=== PATIENT | female | born 1940 | race Caucasian/White ===

== ENCOUNTER → 2017-02-17 | Outpatient (CLI) | payer MEDICARE ==
--- NOTE | 2017-02-18 08:23 | MM ---
Reason for exam: additional evaluation requested from prior study. Last mammogram was performed 1 year ago. History: Patient is postmenopausal, has history of breast cancer at age 60, and previous chest radiation therapy. Lumpectomy of the right breast. Chemotherapy. Radiation therapy of the right breast. Took estrogen for 2 years beginning at age 57. Took progesterone for 2 years beginning at age 57. Physical Findings: Nurse Summary: nodule in the right breast at 2 o'clock (nurse dw). MG 3D Diag Mammo W/Cad EDVIN Bilateral CC and MLO view(s) were taken. AT view(s) were taken of the right breast. Prior study comparison: February 14, 2016, bilateral MG 3d diag mammo w/cad EDVIN. February 11, 2015, bilateral MG diagnostic mammo w CAD EDVIN. The breast tissue is heterogeneously dense. This may lower the sensitivity of mammography. Stable benign calcifications. Stable post operative changes in the right breast. ASSESSMENT: Incomplete: need additional imaging evaluation, BI-RAD 0 RECOMMENDATION: Ultrasound of the right breast. Manage patient on a clinical basis.
--- NOTE | 2017-02-18 08:24 | USB ---
Reason for exam: additional evaluation requested from abnormal screening. History: Patient is postmenopausal, has history of breast cancer at age 60, and previous chest radiation therapy. Lumpectomy of the right breast. Chemotherapy. Radiation therapy of the right breast. Took estrogen for 2 years beginning at age 57. Took progesterone for 2 years beginning at age 57. US Breast Limited RT Right breast ultrasound demonstrates no cystic or solid lesion seen. These results were verbally communicated with the patient and result sheet given to the patient on 02/17/17. ASSESSMENT: Negative, BI-RAD 1 RECOMMENDATION: Follow-up diagnostic mammogram of both breasts in 1 year. Manage patient on a clinical basis.
== END | disposition home or self-care (01) ==
LOC: RADMAMWWP 13:55
PROVIDERS: ATTEND Family Medicine
DX: R92.8 Other abnormal and inconclusive findings on diagnostic imaging of breast (principal)
CPT/HCPCS: 76642; G0204; G0279

== ENCOUNTER 2018-02-06 19:03 | Inpatient (IN) | payer MEDICARE ==
[2018-02-06] MEDS ORDERED: SODIUM CHLORIDE 0.9% 1,000 ML IV STA (19:55)
[2018-02-06] MEDS ORDERED: ACETAMINOPHEN TAB 500 MG TAB PO STA (19:55)
[2018-02-06] MEDS ORDERED: SODIUM CHLORIDE 0.9% 500 ML IV STA (19:55)
[2018-02-06] MEDS ORDERED: IPRATROPIUM-ALBUTEROL 3 ML NEB INHALATION STA (19:56)
--- NOTE | 2018-02-06 19:59 | ED ---
General Adult HPI - General Chief complaint: Dizziness Stated complaint: chest pain Time Seen by Provider: 02/06/18 19:24 Source: patient, RN notes reviewed, old records reviewed Mode of arrival: wheelchair Limitations: no limitations - History of Present Illness Initial comments: 77-year-old female presenting for evaluation of flulike symptoms She states that she has felt unwell for the past 2 days. She has had nasal congestion and rhinorrhea. She's had a cough productive of cream-colored sputum. She had some mild dyspnea and chest pain worse with cough. She also reports some nausea and loose stools. No significant vomiting. She's had fever and chills throughout this episode. No central radiating chest pain. No chest pain when not coughing. No vision changes. No headache. She has felt lightheaded. No syncopal episode. No vertigo. - Related Data Home Medications Medication Instructions Recorded Confirmed ALPRAZolam [Xanax] 0.25 mg PO Q6H PRN 07/10/15 08/11/16 Aspirin 81 mg PO BID 07/10/15 08/11/16 Dicyclomine [Bentyl] 10 - 20 mg PO Q6H PRN 07/10/15 08/11/16 Fish Oil/Dha/Epa [Fish Oil 1,200 1 cap PO DAILY 07/10/15 08/11/16 mg Fish Oil] Melatonin 1 mg PO HS 07/10/15 08/11/16 Nitroglycerin Sl Tabs [Nitrostat] 0.4 mg SUBLINGUAL Q5M PRN 07/10/15 08/11/16 Ranitidine HCl 300 mg PO HS 07/10/15 08/11/16 Spironolactone [Aldactone] 25 mg PO BID 07/10/15 08/11/16 Levothyroxine Sodium [Synthroid] 50 mcg PO DAILY 08/05/15 08/11/16 Lisinopril [Zestril] 2.5 mg PO BID 08/05/15 08/11/16 Atenolol [Tenormin] 25 mg PO DAILY 08/11/16 08/11/16 Atorvastatin [Lipitor] 80 mg PO HS 08/11/16 08/11/16 Furosemide [Lasix] 80 mg PO DAILY 08/11/16 08/11/16 Multivitamins, Thera [Multivitamin] 1 tab PO DAILY 08/11/16 08/11/16 Omeprazole 40 mg PO BID 08/11/16 08/11/16 Propafenone [Rythmol] 75 mg PO HS 08/11/16 08/11/16 Warfarin [Coumadin] 5 mg PO SUMOTUWETHFR 08/11/16 08/11/16 traMADol HCL [Ultram] 50 mg PO Q6HR PRN 08/11/16 08/11/16 Allergies Allergy/AdvReac Type Severity Reaction Status Date / Time adhesive Allergy Rash/Hives Verified 02/06/18 19:17 aspirin Allergy Unknown Verified 02/06/18 19:18 Sulfa (Sulfonamide Allergy Rash/Hives Verified 02/06/18 19:17 Antibiotics) Review of Systems ROS Statement: Those systems with pertinent positive or pertinent negative responses have been documented in the HPI. ROS Other: All systems not noted in ROS Statement are negative. Past Medical History Past Medical History: Cancer, Hyperlipidemia, Thyroid Disorder Additional Past Medical History / Comment(s): BREAST CANCER, IBS SEE DR DELEON' S H&P History of Any Multi-Drug Resistant Organisms: None Reported Past Surgical History: Coronary Bypass/CABG, Hernia Repair, Hysterectomy, Orthopedic Surgery, Pacemaker Additional Past Surgical History / Comment(s): RIGHT TOTAL HIP , LEFT TOTAL HIP Past Anesthesia/Blood Transfusion Reactions: No Reported Reaction Past Psychological History: No Psychological Hx Reported Smoking Status: Never smoker Past Alcohol Use History: Rare Past Drug Use History: None Reported - Past Family History Mother Family Medical History: No Reported History General Exam Limitations: no limitations General appearance: alert, in no apparent distress Head exam: Present: atraumatic, normocephalic Eye exam: Present: normal appearance, PERRL ENT exam: Present: mucous membranes dry, other (Bilateral nasal congestion) Neck exam: Present: normal inspection. Absent: tenderness, meningismus Respiratory exam: Present: wheezes (Scattered wheezing, good air entry), chest wall tenderness. Absent: respiratory distress Cardiovascular Exam: Present: regular rate, normal rhythm GI/Abdominal exam: Present: soft. Absent: distended, tenderness, guarding Extremities exam: Present: normal inspection, normal capillary refill. Absent: pedal edema Neurological exam: Present: alert, oriented X3, CN II-XII intact. Absent: motor sensory deficit Psychiatric exam: Present: normal affect, normal mood Skin exam: Present: warm, dry, intact. Absent: cyanosis, diaphoretic Course Vital Signs 02/06/18 02/06/18 02/06/18 19:14 20:18 20:26 Temperature 101.7 F H Pulse Rate 94 76 78 Respiratory 18 16 18 Rate Blood Pressure 103/56 O2 Sat by Pulse 97 Oximetry 02/06/18 20:58 Temperature 101.6 F H Pulse Rate 87 Respiratory 18 Rate Blood Pressure 111/57 O2 Sat by Pulse 97 Oximetry - Reevaluation(s) Reevaluation #1: 02/06/18 21:46 On reevaluation, patient is feeling better. Medical Decision Making - Medical Decision Making 77-year-old female presenting with rhinorrhea, cough and some lightheadedness and fever and chills. Patient has had no abdominal pain or dysuria. Mild chest pain with cough. No central radiating chest pain. White blood cell count mildly elevated 13.6, hemoglobin stable 12.5, influenza is negative. Chest x-ray negative for focal pneumonia. Patient is given albuterol, and Tylenol and some IV hydration. On reevaluation she is feeling better. She will be given azithromycin and will follow-up with her primary care physician. Diagnosis: Upper respiratory tract infection. - Lab Data Result diagrams: 02/06/18 19:42 02/06/18 19:42 Lab Results 02/06/18 02/06/18 02/06/18 Range/Units 19:42 19:42 19:42 WBC 13.6 H (3.8-10.6) k/uL RBC 4.31 (3.80-5.40) m/uL Hgb 12.5 (11.4-16.0) gm/dL Hct 37.0 (34.0-46.0) % MCV 85.8 (80.0-100.0) fL MCH 29.1 (25.0-35.0) pg MCHC 33.9 (31.0-37.0) g/dL RDW 15.0 (11.5-15.5) % Plt Count 250 (150-450) k/uL Neutrophils % 81 % Lymphocytes % 13 % Monocytes % 5 % Eosinophils % 1 % Basophils % 0 % Neutrophils # 10.9 H (1.3-7.7) k/uL Lymphocytes # 1.7 (1.0-4.8) k/uL Monocytes # 0.6 (0-1.0) k/uL Eosinophils # 0.1 (0-0.7) k/uL Basophils # 0.0 (0-0.2) k/uL Sodium 136 L (137-145) mmol/L Potassium 5.2 H (3.5-5.1) mmol/L Chloride 98 (98-107) mmol/L Carbon Dioxide 24 (22-30) mmol/L Anion Gap 14 mmol/L BUN 23 H (7-17) mg/dL Creatinine 0.90 (0.52-1.04) mg/dL Est GFR (CKD-EPI)AfAm 73 (>60 ml/min/1.73 sqM) Est GFR (CKD-EPI)NonAf 63 (>60 ml/min/1.73 sqM) Glucose 123 H (74-99) mg/dL Plasma Lactic Acid Jorge 1.0 (0.7-2.0) mmol/L Calcium 9.5 (8.4-10.2) mg/dL Total Bilirubin 0.4 (0.2-1.3) mg/dL AST 24 (14-36) U/L ALT 36 (9-52) U/L Alkaline Phosphatase 79 (38-126) U/L Total Protein 6.5 (6.3-8.2) g/dL Albumin 3.9 (3.5-5.0) g/dL Urine Color Urine Appearance (Clear) Urine pH (5.0-8.0) Ur Specific [place] (1.001-1.035) Urine Protein (Negative) Urine Glucose (UA) (Negative) Urine Ketones (Negative) Urine Blood (Negative) Urine Nitrite (Negative) Urine Bilirubin (Negative) Urine Urobilinogen (<2.0) mg/dL Ur Leukocyte Esterase (Negative) Urine RBC (0-5) /hpf Urine WBC (0-5) /hpf Ur Squamous Epith Cells (0-4) /hpf Hyaline Casts (0-2) /lpf Influenza Type A RNA (Not Detectd) Influenza Type B (PCR) (Not Detectd) 02/06/18 02/06/18 Range/Units 20:14 20:15 WBC (3.8-10.6) k/uL RBC (3.80-5.40) m/uL Hgb (11.4-16.0) gm/dL Hct (34.0-46.0) % MCV (80.0-100.0) fL MCH (25.0-35.0) pg MCHC (31.0-37.0) g/dL RDW (11.5-15.5) % Plt Count (150-450) k/uL Neutrophils % % Lymphocytes % % Monocytes % % Eosinophils % % Basophils % % Neutrophils # (1.3-7.7) k/uL Lymphocytes # (1.0-4.8) k/uL Monocytes # (0-1.0) k/uL Eosinophils # (0-0.7) k/uL Basophils # (0-0.2) k/uL Sodium (137-145) mmol/L Potassium (3.5-5.1) mmol/L Chloride (98-107) mmol/L Carbon Dioxide (22-30) mmol/L Anion Gap mmol/L BUN (7-17) mg/dL Creatinine (0.52-1.04) mg/dL Est GFR (CKD-EPI)AfAm (>60 ml/min/1.73 sqM) Est GFR (CKD-EPI)NonAf (>60 ml/min/1.73 sqM) Glucose (74-99) mg/dL Plasma Lactic Acid Jorge (0.7-2.0) mmol/L Calcium (8.4-10.2) mg/dL Total Bilirubin (0.2-1.3) mg/dL AST (14-36) U/L ALT (9-52) U/L Alkaline Phosphatase (38-126) U/L Total Protein (6.3-8.2) g/dL Albumin (3.5-5.0) g/dL Urine Color Yellow Urine Appearance Cloudy H (Clear) Urine pH 6.5 (5.0-8.0) Ur Specific [place] 1.015 (1.001-1.035) Urine Protein Trace H (Negative) Urine Glucose (UA) Negative (Negative) Urine Ketones Negative (Negative) Urine Blood Small H (Negative) Urine Nitrite Negative (Negative) Urine Bilirubin Negative (Negative) Urine Urobilinogen <2.0 (<2.0) mg/dL Ur Leukocyte Esterase Large H (Negative) Urine RBC 5 (0-5) /hpf Urine WBC 68 H (0-5) /hpf Ur Squamous Epith Cells 7 H (0-4) /hpf Hyaline Casts 1 (0-2) /lpf Influenza Type A RNA Not Detected (Not Detectd) Influenza Type B (PCR) Not Detected (Not Detectd) Disposition Clinical Impression: Upper respiratory tract infection, Bronchitis Disposition: HOME SELF-CARE Condition: Good Instructions: Upper Respiratory Infection (ED), Acute Bronchitis (ED) Referrals: Yaritza Sutton MD [Primary Care Provider] - 1-2 days Time of Disposition: 21:53
[2018-02-06 20:14] LABS: Basophils % (A) 0 %; Eosinophils # (A) 0.1 k/uL (0-0.7); Eosinophils % (A) 1 %; HGB 12.5 gm/dL (11.4-16.0); Lymphocytes # (A) 1.7 k/uL (1.0-4.8); Lymphocytes % (A) 13 %; MCH 29.1 pg (25.0-35.0); MCHC 33.9 g/dL (31.0-37.0); MCV 85.8 fL (80.0-100.0); Mean Platelet Volume 7.7; Monocytes # (A) 0.6 k/uL (0-1.0); Monocytes % (A) 5 %; Neutrophils # (A) 10.9 k/uL (1.3-7.7); Neutrophils % (A) 81 %; Platelet Count 250 k/uL (150-450); RBC 4.31 m/uL (3.80-5.40); WBC 13.6 k/uL (3.8-10.6)
[2018-02-06 20:19] LABS: Albumin 3.9 g/dL (3.5-5.0); Calcium 9.5 mg/dL (8.4-10.2); Potassium 5.2 mmol/L (3.5-5.1); Total Bilirubin 0.4 mg/dL (0.2-1.3); Total Protein 6.5 g/dL (6.3-8.2)
[2018-02-06 20:25] LABS: Appearance,Urine Cloudy (Clear); Bilirubin,Urine Negative (Negative); Blood,Urine Small (Negative); Color,Urine Yellow; Glucose,Urine (UA) Negative (Negative); Hyaline Casts,Urine 1 /lpf (0-2); Ketones,Urine Negative (Negative); Leukocyte Esterase,Urine Large (Negative); Nitrite,Urine Negative (Negative); PH, Urine 6.5 (5.0-8.0); Protein,Urine Trace (Negative); RBC,Urine 5 /hpf (0-5); Specific Gravity,Urine 1.015 (1.001-1.035); Squamous Epithelial Cell,Urine 7 /hpf (0-4); Urobilinogen,Urine <2.0 mg/dL (<2.0); WBC,Urine 68 /hpf (0-5)
--- NOTE | 2018-02-06 21:20 | XR ---
EXAMINATION TYPE: XR chest 2V DATE OF EXAM: 02/06/2018 COMPARISON: 08/11/2016 INDICATION: Cough, fever TECHNIQUE: Frontal and lateral views of the chest are obtained. FINDINGS: The heart size is normal. The pulmonary vasculature is normal. The lungs are clear. Linear opacity in the periphery of the left lung likely some scarring. [place] r overlies left chest. Sternotomy wires are present. Right axillary surgical clips are present. IMPRESSION: 1. No acute pulmonary process.
[2018-02-06] MEDS ORDERED: AZITHROMYCIN 500 MG in SODIUM CHLORIDE 0.9% 250 ML IVPB STA (22:20)
[2018-02-06] MEDS ORDERED: SODIUM CHLORIDE 0.9% 500 ML IV ONE (22:20)
[2018-02-06 22:33] LABS: INR 2.3 (<1.2); Prothrombin Time 20.8 sec (9.0-12.0)
[2018-02-06] MEDS ORDERED: ALBUTEROL NEBULIZED 2.5 MG/3 ML INHALATION PRN (22:39)
[2018-02-06] MEDS ORDERED: NALOXONE 0.4 MG/ML 1 ML VIAL IV PRN (22:56)
[2018-02-06] MEDS ORDERED: DEXAMETHASONE SOD PHOSPHATE 10 MG/ML 1 ML VIAL IV STA (22:58)
[2018-02-07] MEDS: PROPAFENONE 150 MG TAB PO SCH ×2 (00:50→22:01)
[2018-02-07] MEDS: WARFARIN 5 MG TAB PO SCH ×2 (00:50→17:21)
[2018-02-07] MEDS: PANTOPRAZOLE 40 MG/10 ML VIAL IVP SCH ×2 (00:51→08:51)
[2018-02-07] MEDS: ACETAMINOPHEN TAB 325 MG TAB PO PRN (00:51)
[2018-02-07] MEDS: LEVOTHYROXINE 50 MCG TAB PO SCH (06:30)
[2018-02-07] MEDS: ASPIRIN 81 MG PO SCH ×2 (08:51→22:00)
[2018-02-07] MEDS: ATENOLOL 25 MG TAB PO SCH (08:52)
[2018-02-07] MEDS ORDERED: DICYCLOMINE 10 MG CAP PO PRN (09:21)
[2018-02-07 10:08] LABS: ALT 24 U/L (9-52); AST 19 U/L (14-36); Albumin 3.1 g/dL (3.5-5.0); Alkaline Phosphatase 63 U/L (38-126); Anion Gap 11 mmol/L; Blood Urea Nitrogen 17 mg/dL (7-17); Calcium 8.6 mg/dL (8.4-10.2); Carbon Dioxide 19 mmol/L (22-30); Chloride 106 mmol/L (98-107); Glucose 247 mg/dL (74-99); Potassium 4.7 mmol/L (3.5-5.1); Sodium 136 mmol/L (137-145); Total Bilirubin 0.3 mg/dL (0.2-1.3); Total Protein 5.4 g/dL (6.3-8.2)
[2018-02-07 10:31] LABS: Basophils % (A) 0 %; Eosinophils % (A) 0 %; HCT 33.5 % (34.0-46.0); HGB 11.1 gm/dL (11.4-16.0); Lymphocytes # (A) 0.9 k/uL (1.0-4.8); Lymphocytes % (A) 9 %; MCH 29.6 pg (25.0-35.0); MCHC 33.2 g/dL (31.0-37.0); MCV 89.1 fL (80.0-100.0); Monocytes # (A) 0.2 k/uL (0-1.0); Monocytes % (A) 2 %; Neutrophils % (A) 90 %; Platelet Count 189 k/uL (150-450); RBC 3.76 m/uL (3.80-5.40); WBC 10.1 k/uL (3.8-10.6)
[2018-02-07] MEDS: traMADol 50 MG TAB PO PRN ×2 (11:19→20:38)
[2018-02-07] MEDS ORDERED: IPRATROPIUM-ALBUTEROL 3 ML NEB INHALATION PRN (11:39)
[2018-02-07] MEDS: IPRATROPIUM-ALBUTEROL 3 ML NEB INHALATION SCH ×3 (11:58→20:39)
--- NOTE | 2018-02-07 11:58 | P.HPIM ---
History of Present Illness H&P Date: 02/07/18 Chief Complaint: Dizziness This is a 77-year-old female, patient of Dr. Sutton. She has a known past medical history of hypothyroidism, hyperlipidemia, breast cancer, coronary artery disease with previous CABG, atrial fibrillation and possible congestive heart failure. Patient reports 2 days ago she had been feeling unwell with nasal congestion and runny nose headache productive cough with a cream-colored sputum. Also admits to having some shortness of breath and chest pain that was worse with the cough. She became concerned when yesterday she started having severe dizziness and thought that she was To pass out. Therefore she came into the emergency room for further evaluation. She also reports some nausea but no diarrhea. She does not to having fever and chills. She is complaining of left ear pain headache and sinus congestion. White count on admission was 13.6 she did have a temp of 101.7. Chest x-ray was negative for any acute changes influenza screening was negative. Urinalysis did show large leukocyte esterase but did have squamous epithelial cells. Likely contamination. Patient doesn't have any urinary symptoms. Urine culture has been ordered. Cultures pending. Patient did receive a dose of IV azithromycin and IV Decadron in the emergency room. Today she is not had any dizziness. However she is still having cough congestion and earache. Orthostatics were checked and were negative. White count has normalized. Patient was admitted to the hospital for acute bronchitis and mild dehydration. She was given a fluids in the emergency room with improvement. Review of Systems Please refer to HPI otherwise unremarkable Past Medical History Past Medical History: Atrial Fibrillation, Cancer, Heart Failure, Hyperlipidemia , Thyroid Disorder Additional Past Medical History / Comment(s): BREAST CANCER with lymph removal on right side, IBS SEE DR DELEON'S H&P History of Any Multi-Drug Resistant Organisms: None Reported Past Surgical History: Coronary Bypass/CABG, Hernia Repair, Hysterectomy, Orthopedic Surgery, Pacemaker Additional Past Surgical History / Comment(s): RIGHT TOTAL HIP , LEFT TOTAL HIP Past Anesthesia/Blood Transfusion Reactions: No Reported Reaction Type of Cardiac Device: Unknown Device Placement Date:: 2015 Past Psychological History: No Psychological Hx Reported Smoking Status: Never smoker Past Alcohol Use History: Rare Past Drug Use History: None Reported - Past Family History Mother Family Medical History: Congestive Heart Failure (CHF) Medications and Allergies Home Medications Medication Instructions Recorded Confirmed Type ALPRAZolam [Xanax] 0.25 mg PO Q6H PRN 07/10/15 02/07/18 History Dicyclomine [Bentyl] 10 mg PO TID PRN 07/10/15 02/07/18 History Fish Oil/Dha/Epa [Fish Oil 1,200 1 cap PO DAILY 07/10/15 02/07/18 History mg Fish Oil] Nitroglycerin Sl Tabs [Nitrostat] 0.4 mg SUBLINGUAL Q5M PRN 07/10/15 02/07/18 History Ranitidine HCl 300 mg PO HS 07/10/15 02/07/18 History Spironolactone [Aldactone] 50 mg PO DAILY 07/10/15 02/07/18 History Levothyroxine Sodium [Synthroid] 50 mcg PO DAILY 08/05/15 02/07/18 History Lisinopril [Zestril] 2.5 mg PO BID 08/05/15 02/07/18 History Atenolol [Tenormin] 25 mg PO DAILY 08/11/16 02/07/18 History Atorvastatin [Lipitor] 80 mg PO HS 08/11/16 02/07/18 History Furosemide [Lasix] 80 mg PO DAILY 08/11/16 02/07/18 History Omeprazole 40 mg PO BID 08/11/16 02/07/18 History Propafenone [Rythmol] 75 mg PO HS 08/11/16 02/07/18 History traMADol HCL [Ultram] 50 mg PO Q6HR PRN 08/11/16 02/07/18 History Azithromycin [Zithromax Z-pack] 0 mg PO DIRECTED #6 tab 02/06/18 Rx Cholecalciferol [Vitamin D3] 5,000 unit PO DAILY 02/07/18 02/07/18 History Potassium Chloride ER [K-Dur 20] 20 meq PO DAILY 02/07/18 02/07/18 History Warfarin Sodium 5 mg PO MOWEFR 02/07/18 02/07/18 History Warfarin [Coumadin] 6 mg PO SUTUTHSA 02/07/18 02/07/18 History Allergies Allergy/AdvReac Type Severity Reaction Status Date / Time adhesive Allergy Rash/Hives Verified 02/07/18 08:30 aspirin Allergy Unknown Verified 02/07/18 08:30 Sulfa (Sulfonamide Allergy Rash/Hives Verified 02/07/18 08:30 Antibiotics) Physical Exam Vitals: Vital Signs Temp Pulse Pulse Resp BP BP Pulse Ox 02/07/18 11:08 68 16 108/55 02/07/18 11:07 66 16 114/59 02/07/18 11:06 97.6 F 61 16 110/55 02/07/18 07:00 97.8 F 60 16 108/53 98 02/06/18 23:50 98.5 F 79 16 101/65 95 02/06/18 22:52 100.7 F H 75 18 97/56 95 02/06/18 20:58 101.6 F H 87 18 111/57 97 02/06/18 20:26 78 18 02/06/18 20:18 76 16 02/06/18 19:14 101.7 F H 94 18 103/56 97 Intake and Output 02/06/18 02/07/18 02/07/18 22:59 06:59 14:59 Intake Total 240 Balance 240 Intake: Oral 240 Other: # Voids 1 Weight 78.925 kg HEENT left ear no pain with palpation. Cerumen blocking the tympanic membrane. Ear canal no redness. Right ear no evidence of infection. Tenderness with palpation of the frontal sinuses Head normocephalic Neck supple Lungs expiratory wheezing noted bilaterally Heart regular rate and rhythm S1-S2, no rub or gallop Abdomen is soft nontender nondistended positive bowel sounds no hepatosplenomegaly Extremities no edema Neuro alert and orientated to 3 Results CBC & Chem 7: 02/07/18 09:31 02/07/18 09:31 Labs: Abnormal Lab Results - Last 24 Hours (Table) 02/06/18 02/06/18 02/06/18 Range/Units 19:42 19:42 19:42 WBC 13.6 H (3.8-10.6) k/uL RBC (3.80-5.40) m/uL Hgb (11.4-16.0) gm/dL Hct (34.0-46.0) % Neutrophils # 10.9 H (1.3-7.7) k/uL Lymphocytes # (1.0-4.8) k/uL PT 20.8 H (9.0-12.0) sec INR 2.3 H (<1.2) APTT 32.0 H (22.0-30.0) sec Sodium 136 L (137-145) mmol/L Potassium 5.2 H (3.5-5.1) mmol/L Carbon Dioxide (22-30) mmol/L BUN 23 H (7-17) mg/dL Glucose 123 H (74-99) mg/dL Total Protein (6.3-8.2) g/dL Albumin (3.5-5.0) g/dL Urine Appearance (Clear) Urine Protein (Negative) Urine Blood (Negative) Ur Leukocyte Esterase (Negative) Urine WBC (0-5) /hpf Ur Squamous Epith Cells (0-4) /hpf 02/06/18 02/07/18 02/07/18 Range/Units 20:14 09:31 09:31 WBC (3.8-10.6) k/uL RBC 3.76 L (3.80-5.40) m/uL Hgb 11.1 L (11.4-16.0) gm/dL Hct 33.5 L (34.0-46.0) % Neutrophils # 9.0 H (1.3-7.7) k/uL Lymphocytes # 0.9 L (1.0-4.8) k/uL PT (9.0-12.0) sec INR (<1.2) APTT (22.0-30.0) sec Sodium 136 L (137-145) mmol/L Potassium (3.5-5.1) mmol/L Carbon Dioxide 19 L (22-30) mmol/L BUN (7-17) mg/dL Glucose 247 H (74-99) mg/dL Total Protein 5.4 L (6.3-8.2) g/dL Albumin 3.1 L (3.5-5.0) g/dL Urine Appearance Cloudy H (Clear) Urine Protein Trace H (Negative) Urine Blood Small H (Negative) Ur Leukocyte Esterase Large H (Negative) Urine WBC 68 H (0-5) /hpf Ur Squamous Epith Cells 7 H (0-4) /hpf Thrombosis Risk Factor Assmnt - Choose All That Apply Any of the Below Risk Factors Present?: Yes Each Factor Represents 1 point: Obesity (BMI >25), Swollen legs (current) Other Risk Factors: Yes Each Risk Factor Represents 2 Points: Age 61-74 years Thrombosis Risk Factor Assessment Total Risk Factor Score: 4 Thrombosis Risk Factor Assessment Level: Moderate Risk Assessment and Plan Assessment: 1. Acute tracheobronchitis and acute sinus infection with evidence of sepsis present on admission. Patient had a temp of 101.7 white count 13.6. She was given IV azithromycin, IV Decadron and IV fluids in the ER. Chest x-ray showed no evidence of pneumonia. We'll start patient on IV Rocephin 1 g daily. Azithromycin interacts with her Rythmol may cause a prolonged QT interval. Blood culture and urine culture pending. Will add nebulizer treatments 2. Dehydration present on admission and improved with IV fluids. Restart her diuretics tomorrow 3. Hypothyroidism: Continue levothyroxine 4. Paroxysmal atrial fibrillation continue Coumadin and monitor daily PT/INR for anticoagulation. Continue Rythmol and atenolol 5. Dizziness likely related to her sinus infection and bronchitis. Now resolved 6. History of coronary artery disease with previous CABG 7. Hyperlipidemia GI prophylaxis Protonix and DVT prophylaxis Coumadin Time with Patient: Greater than 30 (Greater than 50% of the total time spent in counseling and coordination of care.I performed an examination of the patient and discussed their management with the physician [employer]. I have reviewed the Physician [employer]'s notes and agree with the documented findings and plan of care)
[2018-02-07] MEDS: cefTRIAXone IN SWFI 1,000 MG/10 ML SYRINGE IVP SCH (13:06)
[2018-02-07] MEDS: PANTOPRAZOLE 40 MG TABLET PO SCH (17:21)
[2018-02-07] MEDS: ALPRAZolam 0.25 MG TAB PO PRN (17:29)
--- NOTE | 2018-02-07 17:58 | P.CNPUL ---
History of Present Illness Consult date: 02/07/18 Reason for consult: dyspnea, cough, chest pain Chief complaint: Shortness of breath cough chest tightness started 2 days ago History of present illness: Ms. Eduardo is a 77-year-old female history of coronary artery disease history of CABG in the past she has been fairly stable state of health until about Wednesday she started having increasing shortness of breath and dry cough after a cold-like infection the symptoms of progressive up to a point yesterday and today decided to come into the hospital she was seen evaluated examined in the emergency room has been admitted into the hospital she does complain of cough which is dry and nonproductive complain of chest tightness intermittent episodes of rapid heart beat has been noted with flutter-type sensation in fact this 5 minutes before she has a transient episode of similar nature resolved spontaneously and last to do a d-dimer as well as the EKG I reviewed the previous EKG as well as a chest x-ray She also reports some nausea but no diarrhea. She does not to having fever and chills. She is complaining of left ear pain headache and sinus congestion. White count on admission was 13.6 she did have a temp of 101.7. Chest x-ray was negative for any acute changes influenza screening was negative. Urinalysis did show large leukocyte esterase but did have squamous epithelial cells. Likely contamination. Patient doesn't have any urinary symptoms. She has a known past medical history of hypothyroidism, hyperlipidemia, breast cancer, coronary artery disease with previous CABG, atrial fibrillation and possible congestive heart failure. Review of Systems All systems: negative (As noted above) Past Medical History Past Medical History: Atrial Fibrillation, Cancer, Heart Failure, Hyperlipidemia , Thyroid Disorder Additional Past Medical History / Comment(s): BREAST CANCER with lymph removal on right side, IBS SEE DR DELEON'S H&P History of Any Multi-Drug Resistant Organisms: None Reported Past Surgical History: Coronary Bypass/CABG, Hernia Repair, Hysterectomy, Orthopedic Surgery, Pacemaker Additional Past Surgical History / Comment(s): RIGHT TOTAL HIP , LEFT TOTAL HIP Past Anesthesia/Blood Transfusion Reactions: No Reported Reaction Type of Cardiac Device: Unknown Device Placement Date:: 2015 Past Psychological History: No Psychological Hx Reported Smoking Status: Never smoker Past Alcohol Use History: Rare Past Drug Use History: None Reported - Past Family History Mother Family Medical History: Congestive Heart Failure (CHF) Medications and Allergies Home Medications Medication Instructions Recorded Confirmed Type ALPRAZolam [Xanax] 0.25 mg PO Q6H PRN 07/10/15 02/07/18 History Dicyclomine [Bentyl] 10 mg PO TID PRN 07/10/15 02/07/18 History Fish Oil/Dha/Epa [Fish Oil 1,200 1 cap PO DAILY 07/10/15 02/07/18 History mg Fish Oil] Nitroglycerin Sl Tabs [Nitrostat] 0.4 mg SUBLINGUAL Q5M PRN 07/10/15 02/07/18 History Ranitidine HCl 300 mg PO HS 07/10/15 02/07/18 History Spironolactone [Aldactone] 50 mg PO DAILY 07/10/15 02/07/18 History Levothyroxine Sodium [Synthroid] 50 mcg PO DAILY 08/05/15 02/07/18 History Lisinopril [Zestril] 2.5 mg PO BID 08/05/15 02/07/18 History Atenolol [Tenormin] 25 mg PO DAILY 08/11/16 02/07/18 History Atorvastatin [Lipitor] 80 mg PO HS 08/11/16 02/07/18 History Furosemide [Lasix] 80 mg PO DAILY 08/11/16 02/07/18 History Omeprazole 40 mg PO BID 08/11/16 02/07/18 History Propafenone [Rythmol] 75 mg PO HS 08/11/16 02/07/18 History traMADol HCL [Ultram] 50 mg PO Q6HR PRN 08/11/16 02/07/18 History Azithromycin [Zithromax Z-pack] 0 mg PO DIRECTED #6 tab 02/06/18 Rx Cholecalciferol [Vitamin D3] 5,000 unit PO DAILY 02/07/18 02/07/18 History Potassium Chloride ER [K-Dur 20] 20 meq PO DAILY 02/07/18 02/07/18 History Warfarin Sodium 5 mg PO MOWEFR 02/07/18 02/07/18 History Warfarin [Coumadin] 6 mg PO SUTUTHSA 02/07/18 02/07/18 History Allergies Allergy/AdvReac Type Severity Reaction Status Date / Time adhesive Allergy Rash/Hives Verified 02/07/18 08:30 aspirin Allergy Unknown Verified 02/07/18 08:30 Sulfa (Sulfonamide Allergy Rash/Hives Verified 02/07/18 08:30 Antibiotics) Physical Exam Vitals: Vital Signs Temp Pulse Pulse Resp BP BP Pulse Ox 02/07/18 16:47 80 02/07/18 16:37 76 02/07/18 14:31 97.0 F L 66 16 125/69 98 02/07/18 12:19 76 02/07/18 12:00 72 02/07/18 11:08 68 16 108/55 02/07/18 11:07 66 16 114/59 02/07/18 11:06 97.6 F 61 16 110/55 02/07/18 07:00 97.8 F 60 16 108/53 98 02/06/18 23:50 98.5 F 79 16 101/65 95 02/06/18 22:52 100.7 F H 75 18 97/56 95 02/06/18 20:58 101.6 F H 87 18 111/57 97 02/06/18 20:26 78 18 02/06/18 20:18 76 16 02/06/18 19:14 101.7 F H 94 18 103/56 97 Intake and Output 02/07/18 02/07/18 02/07/18 06:59 14:59 22:59 Intake Total 440 Balance 440 Intake: Oral 440 Other: # Voids 1 4 # Bowel Movements 0 General appearance: alert, in no apparent distress Head exam: Present: atraumatic, normocephalic Eye exam: Present: normal appearance, PERRL ENT exam: Present: mucous membranes dry, other (Bilateral nasal congestion) Neck exam: Present: normal inspection. Absent: tenderness, meningismus supple no significant jugular venous distention no carotid bruit no lymphadenopathy noted Respiratory exam: Present: Bilateral expiratory wheezes (Scattered wheezing, good air entry), Cardiovascular Exam: Present: regular rate, normal rhythm GI/Abdominal exam: Present: soft. Absent: distended, tenderness, guarding Extremities exam: Present: normal inspection, normal capillary refill. Absent: pedal edema Neurological exam: Present: alert, oriented X3, CN II-XII intact. Absent: motor sensory deficit Psychiatric exam: Present: normal affect, normal mood Skin exam: Present: warm, dry, intact. Absent: cyanosis, diaphoretic Results - Laboratory Findings CBC and BMP: 02/07/18 09:31 02/07/18 09:31 PT/INR, D-dimer PT 20.8 sec (9.0-12.0) H 02/06/18 19:42 INR 2.3 (<1.2) H 02/06/18 19:42 Abnormal lab findings: Abnormal Labs 02/06/18 02/06/18 02/06/18 19:42 19:42 19:42 WBC 13.6 H RBC Hgb Hct Neutrophils # 10.9 H Lymphocytes # PT 20.8 H INR 2.3 H APTT 32.0 H Sodium 136 L Potassium 5.2 H Carbon Dioxide BUN 23 H Glucose 123 H Total Protein Albumin Urine Appearance Urine Protein Urine Blood Ur Leukocyte Esterase Urine WBC Ur Squamous Epith Cells 02/06/18 02/07/18 02/07/18 20:14 09:31 09:31 WBC RBC 3.76 L Hgb 11.1 L Hct 33.5 L Neutrophils # 9.0 H Lymphocytes # 0.9 L PT INR APTT Sodium 136 L Potassium Carbon Dioxide 19 L BUN Glucose 247 H Total Protein 5.4 L Albumin 3.1 L Urine Appearance Cloudy H Urine Protein Trace H Urine Blood Small H Ur Leukocyte Esterase Large H Urine WBC 68 H Ur Squamous Epith Cells 7 H - Diagnostic Findings Chest x-ray: report reviewed, image reviewed (Labs significant for a urine with large leukocyte is trace suggestive of UTI borderline hyperglycemia mild hyponatremia mild hypokalemia, well therapeutic PT/INR) Assessment and Plan Assessment: Purulent tracheobronchitis Acute COPD exacerbation/acute asthma Chest tightness likely related to above but occult processes like pulmonary embolism cannot be excluded Feeling of flutter fibrillation symptomatic transient resolved Urinary tract infection Sirs Dehydration and intravascular volume depletion Paroxysmal atrial fibrillation Coronary artery disease history of CABG Dyslipidemia hypertension hypertensive cardiovascular disease Plan: Gentle rehydration Broad-spectrum antibiotics with IV Rocephin Breathing treatments IV steroids Continue Coumadin as planned We'll check an EKG and a d-dimer If d-dimer is elevated consider doing a spiral CT scan of the chest to rule out PE Deep breathing exercises incentive spirometry Further recommendations pending plan of care as per clinical response of the patient Time with Patient: Greater than 30
[2018-02-07] MEDS ORDERED: WARFARIN 5 MG TAB PO SCH (18:00)
[2018-02-07] MEDS ORDERED: PROPAFENONE 150 MG TAB PO SCH (21:00)
[2018-02-07] MEDS: methylPREDNISolone SOD SUCCI 40 MG/ML 1 ML VIAL IV SCH (21:59)
[2018-02-07] MEDS: ATORVASTATIN 80 MG TAB PO SCH (22:00)
[2018-02-07] MEDS: FAMOTIDINE 20 MG TAB PO SCH (22:00)
[2018-02-08] MEDS: methylPREDNISolone SOD SUCCI 40 MG/ML 1 ML VIAL IV SCH ×2 (04:45→11:23)
[2018-02-08] MEDS: LEVOTHYROXINE 50 MCG TAB PO SCH (06:23)
[2018-02-08] MEDS: IPRATROPIUM-ALBUTEROL 3 ML NEB INHALATION SCH ×5 (07:14→19:40)
[2018-02-08] MEDS ORDERED: PANTOPRAZOLE 40 MG TABLET PO SCH (07:30)
[2018-02-08] MEDS: PANTOPRAZOLE 40 MG TABLET PO SCH ×2 (08:27→17:15)
[2018-02-08] MEDS: ASPIRIN 81 MG PO SCH ×2 (08:28→20:38)
[2018-02-08] MEDS: CHOLECALCIFEROL 1,000 UNIT TAB PO SCH (08:28)
[2018-02-08] MEDS: ATENOLOL 25 MG TAB PO SCH (08:28)
[2018-02-08] MEDS: SPIRONOLACTONE 25 MG TAB PO SCH (08:29)
[2018-02-08] MEDS: FUROSEMIDE 40 MG TAB PO SCH (08:29)
[2018-02-08 08:52] LABS: Basophils % (A) 0 %; Eosinophils % (A) 0 %; HCT 34.2 % (34.0-46.0); HGB 11.1 gm/dL (11.4-16.0); Lymphocytes # (A) 1.1 k/uL (1.0-4.8); Lymphocytes % (A) 9 %; MCH 28.8 pg (25.0-35.0); MCHC 32.6 g/dL (31.0-37.0); MCV 88.3 fL (80.0-100.0); Mean Platelet Volume 8.2; Monocytes # (A) 0.4 k/uL (0-1.0); Monocytes % (A) 3 %; Neutrophils # (A) 11.1 k/uL (1.3-7.7); Neutrophils % (A) 88 %; Platelet Count 214 k/uL (150-450); RBC 3.87 m/uL (3.80-5.40); RDW 15.1 % (11.5-15.5); WBC 12.6 k/uL (3.8-10.6)
[2018-02-08 08:53] LABS: Prothrombin Time 26.6 sec (9.0-12.0)
[2018-02-08 09:23] LABS: ALT 28 U/L (9-52); AST 19 U/L (14-36); Albumin 3.3 g/dL (3.5-5.0); Alkaline Phosphatase 76 U/L (38-126); Anion Gap 12 mmol/L; Blood Urea Nitrogen 15 mg/dL (7-17); Calcium 9.2 mg/dL (8.4-10.2); Carbon Dioxide 21 mmol/L (22-30); Chloride 99 mmol/L (98-107); Glucose 193 mg/dL (74-99); Potassium 4.9 mmol/L (3.5-5.1); Sodium 132 mmol/L (137-145); Total Bilirubin 0.2 mg/dL (0.2-1.3); Total Protein 5.7 g/dL (6.3-8.2)
[2018-02-08] MEDS: cefTRIAXone IN SWFI 1,000 MG/10 ML SYRINGE IVP SCH (11:23)
--- NOTE | 2018-02-08 12:45 | P.PN ---
Subjective Progress Note Date: 02/08/18 Patient is complaining of feeling jittery and of heart palpitation every time she used albuterol inhaler breathing treatment. She is concerned with her underlying heart condition. She is still having some shortness of breath. She did not get up and walk around as of yet. Objective - Vital Signs Vital signs: Vital Signs Temp 97.8 F 02/08/18 07:00 Pulse 60 02/08/18 07:00 Resp 16 02/08/18 07:00 BP 105/53 02/08/18 07:00 Pulse Ox 99 02/08/18 07:00 Intake & Output 02/07/18 02/08/18 02/08/18 18:59 06:59 18:59 Intake Total 440 Balance 440 Weight 81.9 kg Intake: Oral 440 Other: Voiding Method Toilet # Voids 4 1 # Bowel Movements 0 - Exam General: The patient is awake and alert, in no distress Eye: there is normal conjunctiva bilaterally. Neck: The neck is supple, there is no JVD. Cardiovascular: Normal S1-S2, no S3-S4, no murmurs. Respiratory: Lungs with end expiratory wheezing Gastrointestinal: Abdomen is soft, nontender Musculoskeletal: There is no pedal edema. Neurological:. Speech is normal. Skin: Skin is warm and dry - Labs CBC & Chem 7: 02/08/18 08:05 02/08/18 08:05 Labs: Abnormal Lab Results - Last 24 Hours (Table) 02/08/18 02/08/18 02/08/18 Range/Units 08:05 08:05 08:05 WBC 12.6 H (3.8-10.6) k/uL Hgb 11.1 L (11.4-16.0) gm/dL Neutrophils # 11.1 H (1.3-7.7) k/uL PT 26.6 H (9.0-12.0) sec INR 3.0 H (<1.2) Sodium 132 L (137-145) mmol/L Carbon Dioxide 21 L (22-30) mmol/L Glucose 193 H (74-99) mg/dL Total Protein 5.7 L (6.3-8.2) g/dL Albumin 3.3 L (3.5-5.0) g/dL Microbiology - Last 24 Hours (Table) 02/06/18 20:14 Urine Culture - Final Urine,Voided 02/06/18 19:42 Blood Culture - Preliminary Blood No Growth after 24 hours Assessment and Plan Assessment: 1. Acute tracheobronchitis with reactive airway disease, I would change antibiotic to Augmentin twice a day to finish 5 days course. patient received multiple doses of IV Solu-Medrol. I would change her steroid dose to prednisone 40 mg starting tomorrow. I would also change her nebulizer treatments with ipratropium only. May use albuterol inhaler as tolerated. Patient was reassured. 2. Sepsis on presentation without septic shock: Blood culture negative to date. 3. Hypothyroidism: Continue levothyroxine 4. Paroxysmal atrial fibrillation continue Coumadin and monitor daily PT/INR for anticoagulation. Continue Rythmol and atenolol 5. Dizziness likely related to her sinus infection and bronchitis. Now resolved 6. History of coronary artery disease with previous CABG 7. Hyperlipidemia
--- NOTE | 2018-02-08 13:18 | P.PN ---
Subjective Progress Note Date: 02/08/18 Principal diagnosis: Acute COPD exacerbation/acute asthma exacerbation, purulent tracheobronchitis, chest pain, atrial flutter and fibrillation, urinary tract infection, Sirs, dehydration, paroxysmal atrial fibrillation 02/08/2018, patient seen and evaluated examined clinically doing relatively better with still very short of breath on minimal activity and exertion and talking she goes into bronchospasm and coughing with very significant wheezing patient remains on IV steroids antibiotics and breathing treatment and supportive care, her urine and blood culture so far has been negative urine is contaminated Ms. Eduardo is a 77-year-old female history of coronary artery disease history of CABG in the past she has been fairly stable state of health until about Wednesday she started having increasing shortness of breath and dry cough after a cold-like infection the symptoms of progressive up to a point yesterday and today decided to come into the hospital she was seen evaluated examined in the emergency room has been admitted into the hospital she does complain of cough which is dry and nonproductive complain of chest tightness intermittent episodes of rapid heart beat has been noted with flutter-type sensation in fact this 5 minutes before she has a transient episode of similar nature resolved spontaneously and last to do a d-dimer as well as the EKG I reviewed the previous EKG as well as a chest x-ray She also reports some nausea but no diarrhea. She does not to having fever and chills. She is complaining of left ear pain headache and sinus congestion. White count on admission was 13.6 she did have a temp of 101.7. Chest x-ray was negative for any acute changes influenza screening was negative. Urinalysis did show large leukocyte esterase but did have squamous epithelial cells. Likely contamination. Patient doesn't have any urinary symptoms. She has a known past medical history of hypothyroidism, hyperlipidemia, breast cancer, coronary artery disease with previous CABG, atrial fibrillation and possible congestive heart failure. Objective - Vital Signs Vital signs: Vital Signs Temp 97.8 F 02/08/18 07:00 Pulse 60 02/08/18 07:00 Resp 16 02/08/18 07:00 BP 105/53 02/08/18 07:00 Pulse Ox 99 02/08/18 07:00 Intake & Output 02/07/18 02/08/18 02/08/18 18:59 06:59 18:59 Intake Total 440 Balance 440 Weight 81.9 kg Intake: Oral 440 Other: Voiding Method Toilet # Voids 4 1 # Bowel Movements 0 - Exam General appearance: alert, in no apparent distress Head exam: Present: atraumatic, normocephalic Eye exam: Present: normal appearance, PERRL ENT exam: Present: mucous membranes dry, other (Bilateral nasal congestion) Neck exam: Present: normal inspection. Absent: tenderness, meningismus supple no significant jugular venous distention no carotid bruit no lymphadenopathy noted Respiratory exam: Present: Bilateral expiratory wheezes (Scattered wheezing, good air entry), Cardiovascular Exam: Present: regular rate, normal rhythm GI/Abdominal exam: Present: soft. Absent: distended, tenderness, guarding Extremities exam: Present: normal inspection, normal capillary refill. Absent: pedal edema Neurological exam: Present: alert, oriented X3, CN II-XII intact. Absent: motor sensory deficit Psychiatric exam: Present: normal affect, normal mood Skin exam: Present: warm, dry, intact. Absent: cyanosis, diaphoretic - Labs CBC & Chem 7: 02/08/18 08:05 02/08/18 08:05 Labs: Abnormal Lab Results - Last 24 Hours (Table) 02/08/18 02/08/18 02/08/18 Range/Units 08:05 08:05 08:05 WBC 12.6 H (3.8-10.6) k/uL Hgb 11.1 L (11.4-16.0) gm/dL Neutrophils # 11.1 H (1.3-7.7) k/uL PT 26.6 H (9.0-12.0) sec INR 3.0 H (<1.2) Sodium 132 L (137-145) mmol/L Carbon Dioxide 21 L (22-30) mmol/L Glucose 193 H (74-99) mg/dL Total Protein 5.7 L (6.3-8.2) g/dL Albumin 3.3 L (3.5-5.0) g/dL Microbiology - Last 24 Hours (Table) 02/06/18 20:14 Urine Culture - Final Urine,Voided 02/06/18 19:42 Blood Culture - Preliminary Blood No Growth after 24 hours Assessment and Plan Assessment: Purulent tracheobronchitis Acute COPD exacerbation/acute asthma Chest tightness likely related to above but occult processes like pulmonary embolism cannot be excluded Feeling of flutter fibrillation symptomatic transient resolved Urinary tract infection Sirs Dehydration and intravascular volume depletion Paroxysmal atrial fibrillation Coronary artery disease history of CABG Dyslipidemia hypertension hypertensive cardiovascular disease Plan: Gentle rehydration Broad-spectrum antibiotics with IV Rocephin Breathing treatments IV steroids Continue Coumadin as planned We'll check an EKG and a d-dimer If d-dimer is elevated consider doing a spiral CT scan of the chest to rule out PE Deep breathing exercises incentive spirometry Further recommendations pending plan of care as per clinical response of the patient Time with Patient: Greater than 30
--- NOTE | 2018-02-08 14:30 | CDI ---
Documentation Clarification Form Date: 02/08/2018 02:27:00 PM CDS: Lesli MillerVIVIAN, CCDS Admit Date: 02/06/2018 Patient Name: Gila Eduardo Discharge Date: 02/10/2018 ATTENTION: The Clinical Documentation Specialists (CDI) and [facility] Coding Staff appreciate your assistance in clarifying documentation. Please respond to the clarification below the line at the bottom and electronically sign. The CDI & [facility] Coding staff will review the response and follow-up if needed. Please note: Queries are made part of the Legal Health Record. If you have any questions, please contact the author of this message via ITS. Dr. Kiki Soliman: Per the History & Physical: "She has a known past medical history of hypothyroidism, hyperlipidemia, breast cancer, coronary artery disease with previous CABG, atrial fibrillation and possible congestive heart failure." Clinical Indicators: Presented with dizziness, productive cough, runny nose, nasal congestion, SOB, nausea, CAMARENA & lt ear pain. VS: T 101.7, P 94, R 18, BP 103/56, PO 97 ra Chest X Ray: No acute pulmonary process. Treatment: IV fl 75, IV fluid bolus x2, Albuterol INH, IV Azithromycin, IV Narcan, IV Decadron. Home Rx: Ultram, Coumadin, Aldactone, Ranitidine, Rythmol, KDur, Nitro sl, Zestril, Synthroid, Lasix 80 mg daily, Lipitor, Tenormin Consults: Pulmonary In your professional opinion, can you please clarify the acuity and type of CHF if known? Acute Chronic Acute on Chronic Diastolic Heart Failure Systolic Heart Failure Combined Diastolic & Systolic Unable to Determine Other, please specify Please continue to document in your progress notes and discharge summary in order to capture severity of illness and risk of mortality. Include clinical findings that support your diagnosis. MTDD
--- NOTE | 2018-02-08 14:43 | CDI ---
Documentation Clarification Form Date: 02/08/2018 02:39:00 PM CDS: Lesli Miller, VIVIAN, CCDS Admit Date: 02/06/2018 Patient Name: Gila Eduardo Discharge Date: ATTENTION: The Clinical Documentation Specialists (CDI) and [facility] Coding Staff appreciate your assistance in clarifying documentation. Please respond to the clarification below the line at the bottom and electronically sign. The CDI & [facility] Coding staff will review the response and follow-up if needed. Please note: Queries are made part of the Legal Health Record. If you have any questions, please contact the author of this message via ITS. Dr. Elmo Santacruz: Asthma is documented in the pulmonary consult as "Acute COPD exacerbation/acute asthma." Patient history/risk factors: Atrial Fibrillation, CHF, Hyperlipidemia, Hypothyroidism, CAD & CABG. Clinical Indicators: Presented with dizziness, SOB, nausea, diagnosed with Sepsis & Acute Bronchitis. Radiology: CXR: No acute pulmonary process. Vital Signs: T 101.7, P 94, R 18, BP 103/56, PO 97 ra Treatment: O2 2Lnc, IV Fl 75, IV Fl bolus, Albuterol INH, IV Decadron, IV Protonix In your professional opinion, can you please further specify the following, if known? Acute Exacerbation Status asthmaticus Acute lower respiratory infection COPD (specify with or without exacerbation) Chronic obstructive bronchitis Other, please specify Unable to determine Severity: Mild intermittent Mild persistent Moderate persistent Severe persistent Other, please specify Unable to determine Form or Type: Cough variant Childhood Exercise induced bronchospasm Extrinsic allergic Idiosyncratic Intrinsic nonallergic Late-onset Mixed Late-onset Mixed Other, please specify Unable to determine Please continue to document in your progress notes and discharge summary in order to capture severity of illness and risk of mortality. Include clinical findings that support your diagnosis. MTDD
[2018-02-08] MEDS ORDERED: IPRATROPIUM 0.5 MG/2.5 ML NEBU INHALATION SCH (16:00)
[2018-02-08] MEDS ORDERED: ALBUTEROL INHALER 60 PUFF/8 GM INHALER INHALATION SCH (16:00)
[2018-02-08] MEDS: WARFARIN 5 MG TAB PO SCH (17:15)
[2018-02-08] MEDS: ACETAMINOPHEN TAB 325 MG TAB PO PRN (18:13)
[2018-02-08] MEDS: ALPRAZolam 0.25 MG TAB PO PRN (19:31)
[2018-02-08] MEDS: PROPAFENONE 150 MG TAB PO SCH (20:38)
[2018-02-08] MEDS: FAMOTIDINE 20 MG TAB PO SCH (20:38)
[2018-02-08] MEDS: ATORVASTATIN 80 MG TAB PO SCH (20:38)
[2018-02-08] MEDS: AMOXIC-POT CLAV 875-125MG 1 EACH TAB PO SCH (20:38)
[2018-02-08] MEDS ORDERED: CALCIUM CARBONATE 500 MG CHEWABLE PO PRN (23:37)
[2018-02-09] MEDS: ALPRAZolam 0.25 MG TAB PO PRN ×2 (01:09→21:14)
[2018-02-09 01:46] LABS: Creatine Kinase 30 U/L (30-135)
[2018-02-09 01:59] LABS: Creatine Kinase MB 1.9 ng/mL (0.0-2.4); Troponin I <0.012 ng/mL (0.000-0.034)
[2018-02-09] MEDS: LEVOTHYROXINE 50 MCG TAB PO SCH (06:39)
[2018-02-09] MEDS: IPRATROPIUM-ALBUTEROL 3 ML NEB INHALATION SCH ×3 (07:30→19:26)
[2018-02-09] MEDS: ATENOLOL 25 MG TAB PO SCH (07:49)
[2018-02-09] MEDS: PANTOPRAZOLE 40 MG TABLET PO SCH ×2 (07:49→18:07)
[2018-02-09] MEDS: AMOXIC-POT CLAV 875-125MG 1 EACH TAB PO SCH ×2 (07:49→20:57)
[2018-02-09] MEDS: ASPIRIN 81 MG PO SCH ×2 (07:49→20:57)
[2018-02-09] MEDS: predniSONE 20 MG TAB PO SCH (07:50)
[2018-02-09] MEDS: CHOLECALCIFEROL 1,000 UNIT TAB PO SCH (07:50)
[2018-02-09] MEDS: FUROSEMIDE 40 MG TAB PO SCH (07:50)
[2018-02-09] MEDS: SPIRONOLACTONE 25 MG TAB PO SCH (07:51)
[2018-02-09 09:21] LABS: Basophils % (A) 0 %; Eosinophils % (A) 0 %; HCT 36.6 % (34.0-46.0); HGB 12.4 gm/dL (11.4-16.0); Lymphocytes # (A) 2.3 k/uL (1.0-4.8); Lymphocytes % (A) 17 %; MCH 29.5 pg (25.0-35.0); MCHC 33.9 g/dL (31.0-37.0); Mean Platelet Volume 7.9; Monocytes # (A) 0.7 k/uL (0-1.0); Monocytes % (A) 5 %; Neutrophils # (A) 10.7 k/uL (1.3-7.7); Neutrophils % (A) 76 %; Platelet Count 223 k/uL (150-450); RDW 14.9 % (11.5-15.5)
[2018-02-09 09:23] LABS: INR 3.7 (<1.2); Prothrombin Time 32.8 sec (9.0-12.0)
[2018-02-09 09:40] LABS: ALT 28 U/L (9-52); AST 20 U/L (14-36); Albumin 3.5 g/dL (3.5-5.0); Alkaline Phosphatase 64 U/L (38-126); Anion Gap 13 mmol/L; Blood Urea Nitrogen 20 mg/dL (7-17); Calcium 9.3 mg/dL (8.4-10.2); Carbon Dioxide 24 mmol/L (22-30); Chloride 101 mmol/L (98-107); Glucose 153 mg/dL (74-99); Potassium 4.4 mmol/L (3.5-5.1); Sodium 138 mmol/L (137-145); Total Bilirubin 0.3 mg/dL (0.2-1.3); Total Protein 6.1 g/dL (6.3-8.2)
[2018-02-09] MEDS ORDERED: IPRATROPIUM-ALBUTEROL 3 ML NEB INHALATION PRN (11:24)
--- NOTE | 2018-02-09 11:47 | P.PN ---
Subjective Progress Note Date: 02/09/18 Principal diagnosis: Acute COPD exacerbation/acute asthma exacerbation, purulent tracheobronchitis, chest pain, atrial flutter and fibrillation, urinary tract infection, Sirs, dehydration, paroxysmal atrial fibrillation 02/09/2018, patient seen eval reexamined during the rounds she is awake and alert is still of shortness of breath cough congestion and wheezing she has difficult time and tell tolerating the nebulizer treatment however tolerating antibiotic and steroids fairly well she does require Xanax with the treatment, we'll change it to as needed at this point of time continue steroids antibiotics and as needed breathing treatments 02/08/2018, patient seen and evaluated examined clinically doing relatively better with still very short of breath on minimal activity and exertion and talking she goes into bronchospasm and coughing with very significant wheezing patient remains on IV steroids antibiotics and breathing treatment and supportive care, her urine and blood culture so far has been negative urine is contaminated Ms. Eduardo is a 77-year-old female history of coronary artery disease history of CABG in the past she has been fairly stable state of health until about Wednesday she started having increasing shortness of breath and dry cough after a cold-like infection the symptoms of progressive up to a point yesterday and today decided to come into the hospital she was seen evaluated examined in the emergency room has been admitted into the hospital she does complain of cough which is dry and nonproductive complain of chest tightness intermittent episodes of rapid heart beat has been noted with flutter-type sensation in fact this 5 minutes before she has a transient episode of similar nature resolved spontaneously and last to do a d-dimer as well as the EKG I reviewed the previous EKG as well as a chest x-ray She also reports some nausea but no diarrhea. She does not to having fever and chills. She is complaining of left ear pain headache and sinus congestion. White count on admission was 13.6 she did have a temp of 101.7. Chest x-ray was negative for any acute changes influenza screening was negative. Urinalysis did show large leukocyte esterase but did have squamous epithelial cells. Likely contamination. Patient doesn't have any urinary symptoms. She has a known past medical history of hypothyroidism, hyperlipidemia, breast cancer, coronary artery disease with previous CABG, atrial fibrillation and possible congestive heart failure. Objective - Vital Signs Vital signs: Vital Signs Temp 97.6 F 02/09/18 06:20 Pulse 68 02/09/18 11:43 Resp 16 02/09/18 06:20 BP 112/62 02/09/18 06:20 Pulse Ox 93 L 02/09/18 07:32 Intake & Output 02/08/18 02/09/18 02/09/18 18:59 06:59 18:59 Intake Total 120 Balance 120 Weight 81.9 kg 83.5 kg Intake: Oral 120 Other: Voiding Method Toilet # Voids 2 1 # Bowel Movements 1 - Exam General appearance: alert, in no apparent distress Head exam: Present: atraumatic, normocephalic Eye exam: Present: normal appearance, PERRL ENT exam: Present: mucous membranes dry, other (Bilateral nasal congestion) Neck exam: Present: normal inspection. Absent: tenderness, meningismus supple no significant jugular venous distention no carotid bruit no lymphadenopathy noted Respiratory exam: Present: Bilateral expiratory wheezes (Scattered wheezing, good air entry), Cardiovascular Exam: Present: regular rate, normal rhythm GI/Abdominal exam: Present: soft. Absent: distended, tenderness, guarding Extremities exam: Present: normal inspection, normal capillary refill. Absent: pedal edema Neurological exam: Present: alert, oriented X3, CN II-XII intact. Absent: motor sensory deficit Psychiatric exam: Present: normal affect, normal mood Skin exam: Present: warm, dry, intact. Absent: cyanosis, diaphoretic - Labs CBC & Chem 7: 02/09/18 08:39 02/09/18 08:39 Labs: Abnormal Lab Results - Last 24 Hours (Table) 02/09/18 02/09/18 02/09/18 Range/Units 08:39 08:39 08:39 WBC 14.0 H (3.8-10.6) k/uL Neutrophils # 10.7 H (1.3-7.7) k/uL PT 32.8 H (9.0-12.0) sec INR 3.7 H (<1.2) BUN 20 H (7-17) mg/dL Glucose 153 H (74-99) mg/dL Total Protein 6.1 L (6.3-8.2) g/dL Microbiology - Last 24 Hours (Table) 02/06/18 19:42 Blood Culture - Preliminary Blood No Growth after 48 hours 02/06/18 20:14 Urine Culture - Final Urine,Voided Assessment and Plan Assessment: Purulent tracheobronchitis Acute COPD exacerbation/acute asthma Chest tightness likely related to above but occult processes like pulmonary embolism cannot be excluded Feeling of flutter fibrillation symptomatic transient resolved Urinary tract infection Sirs Dehydration and intravascular volume depletion Paroxysmal atrial fibrillation Coronary artery disease history of CABG Dyslipidemia hypertension hypertensive cardiovascular disease Plan: Gentle rehydration Broad-spectrum antibiotics with IV Rocephin Breathing treatments as needed IV steroids Continue Coumadin as planned We'll check an EKG and a d-dimer Deep breathing exercises incentive spirometry Further recommendations pending plan of care as per clinical response of the patient Time with Patient: Greater than 30
--- NOTE | 2018-02-09 12:28 | P.PN ---
Subjective Patient is doing well today. She had the brief episode of chest discomfort last night. Twelve-lead EKG showed no acute ischemic changes. Troponin came back negative. Patient is comfortable today. No chest pain reported to me. She is still having difficulty with shortness of breath. She is having audible wheezing on exam. Objective - Vital Signs Vital signs: Vital Signs Temp 97.6 F 02/09/18 06:20 Pulse 68 02/09/18 11:43 Resp 16 02/09/18 06:20 BP 112/62 02/09/18 06:20 Pulse Ox 93 L 02/09/18 07:32 Intake & Output 02/08/18 02/09/18 02/09/18 18:59 06:59 18:59 Intake Total 120 Balance 120 Weight 81.9 kg 83.5 kg Intake: Oral 120 Other: Voiding Method Toilet # Voids 2 1 # Bowel Movements 1 - Exam General: The patient is awake and alert, in no distress Eye: there is normal conjunctiva bilaterally. Neck: The neck is supple, there is no JVD. Cardiovascular: Normal S1-S2, no S3-S4, no murmurs. Respiratory: Lungs with end expiratory wheezing Gastrointestinal: Abdomen is soft, nontender Musculoskeletal: There is no pedal edema. Neurological:. Speech is normal. Skin: Skin is warm and dry - Labs CBC & Chem 7: 02/09/18 08:39 02/09/18 08:39 Labs: Abnormal Lab Results - Last 24 Hours (Table) 02/09/18 02/09/18 02/09/18 Range/Units 08:39 08:39 08:39 WBC 14.0 H (3.8-10.6) k/uL Neutrophils # 10.7 H (1.3-7.7) k/uL PT 32.8 H (9.0-12.0) sec INR 3.7 H (<1.2) BUN 20 H (7-17) mg/dL Glucose 153 H (74-99) mg/dL Total Protein 6.1 L (6.3-8.2) g/dL Microbiology - Last 24 Hours (Table) 02/06/18 19:42 Blood Culture - Preliminary Blood No Growth after 48 hours 02/06/18 20:14 Urine Culture - Final Urine,Voided Assessment and Plan Assessment: 1. Acute tracheobronchitis with reactive airway disease, continue duo nebs every 6 hours. Augmentin and prednisone for 5 days. 2. Sepsis on presentation without septic shock: Blood culture negative to date. 3. Hypothyroidism: Continue levothyroxine 4. Paroxysmal atrial fibrillation: All Coumadin tonight given supratherapeutic INR 5. Dizziness likely related to her sinus infection and bronchitis. Now resolved 6. History of coronary artery disease with previous CABG 7. Hyperlipidemia
[2018-02-09] MEDS: ATORVASTATIN 80 MG TAB PO SCH (20:57)
[2018-02-09] MEDS: FAMOTIDINE 20 MG TAB PO SCH (20:57)
[2018-02-09] MEDS: ACETAMINOPHEN TAB 325 MG TAB PO PRN (20:58)
[2018-02-09] MEDS: PROPAFENONE 150 MG TAB PO SCH (20:58)
[2018-02-09] MEDS: traMADol 50 MG TAB PO PRN (23:20)
[2018-02-10 06:22] VITALS: BP 117/62; RESP 20; TEMP 98.5
[2018-02-10] MEDS: LEVOTHYROXINE 50 MCG TAB PO SCH (06:56)
[2018-02-10] MEDS: IPRATROPIUM-ALBUTEROL 3 ML NEB INHALATION SCH ×3 (07:13→14:54)
[2018-02-10 07:52] LABS: Basophils % (A) 0 %; Eosinophils % (A) 0 %; HGB 11.6 gm/dL (11.4-16.0); Lymphocytes # (A) 2.9 k/uL (1.0-4.8); Lymphocytes % (A) 26 %; MCH 29.2 pg (25.0-35.0); MCV 85.9 fL (80.0-100.0); Mean Platelet Volume 7.5; Monocytes # (A) 0.9 k/uL (0-1.0); Monocytes % (A) 8 %; Neutrophils % (A) 63 %; Platelet Count 251 k/uL (150-450); RBC 3.96 m/uL (3.80-5.40); WBC 11.2 k/uL (3.8-10.6)
[2018-02-10 08:02] LABS: INR 3.2 (<1.2); Prothrombin Time 28.9 sec (9.0-12.0)
[2018-02-10 08:06] LABS: ALT 35 U/L (9-52); AST 22 U/L (14-36); Albumin 3.1 g/dL (3.5-5.0); Alkaline Phosphatase 59 U/L (38-126); Anion Gap 11 mmol/L; Blood Urea Nitrogen 21 mg/dL (7-17); Calcium 8.9 mg/dL (8.4-10.2); Carbon Dioxide 24 mmol/L (22-30); Chloride 102 mmol/L (98-107); Glucose 98 mg/dL (74-99); Potassium 4.3 mmol/L (3.5-5.1); Sodium 137 mmol/L (137-145); Total Bilirubin 0.3 mg/dL (0.2-1.3); Total Protein 5.4 g/dL (6.3-8.2)
[2018-02-10] MEDS: CHOLECALCIFEROL 1,000 UNIT TAB PO SCH (08:24)
[2018-02-10] MEDS: PANTOPRAZOLE 40 MG TABLET PO SCH (08:24)
[2018-02-10] MEDS: AMOXIC-POT CLAV 875-125MG 1 EACH TAB PO SCH (08:24)
[2018-02-10] MEDS: ATENOLOL 25 MG TAB PO SCH (08:24)
[2018-02-10] MEDS: ASPIRIN 81 MG PO SCH (08:24)
[2018-02-10] MEDS: SPIRONOLACTONE 25 MG TAB PO SCH (08:25)
[2018-02-10] MEDS: predniSONE 20 MG TAB PO SCH (08:25)
[2018-02-10] MEDS: FUROSEMIDE 40 MG TAB PO SCH (08:25)
--- NOTE | 2018-02-10 10:27 | P.PN ---
Subjective Progress Note Date: 02/10/18 Principal diagnosis: Acute COPD exacerbation/acute asthma exacerbation, purulent tracheobronchitis, chest pain, atrial flutter and fibrillation, urinary tract infection, Sirs, dehydration, paroxysmal atrial fibrillation 02/10/2018, patient seen eval examined during the rounds she is still congested and short of breath gets some move around however care plan discussed with the patient she prefers to go home and finish therapy at home she couldn't tolerate the nebulizer treatment agree with the the oral antibiotics and oral prednisone outpatient setting will reevaluate in outpatient setting, 02/09/2018, patient seen eval reexamined during the rounds she is awake and alert is still of shortness of breath cough congestion and wheezing she has difficult time and tell tolerating the nebulizer treatment however tolerating antibiotic and steroids fairly well she does require Xanax with the treatment, we'll change it to as needed at this point of time continue steroids antibiotics and as needed breathing treatments 02/08/2018, patient seen and evaluated examined clinically doing relatively better with still very short of breath on minimal activity and exertion and talking she goes into bronchospasm and coughing with very significant wheezing patient remains on IV steroids antibiotics and breathing treatment and supportive care, her urine and blood culture so far has been negative urine is contaminated Ms. Eduardo is a 77-year-old female history of coronary artery disease history of CABG in the past she has been fairly stable state of health until about Wednesday she started having increasing shortness of breath and dry cough after a cold-like infection the symptoms of progressive up to a point yesterday and today decided to come into the hospital she was seen evaluated examined in the emergency room has been admitted into the hospital she does complain of cough which is dry and nonproductive complain of chest tightness intermittent episodes of rapid heart beat has been noted with flutter-type sensation in fact this 5 minutes before she has a transient episode of similar nature resolved spontaneously and last to do a d-dimer as well as the EKG I reviewed the previous EKG as well as a chest x-ray She also reports some nausea but no diarrhea. She does not to having fever and chills. She is complaining of left ear pain headache and sinus congestion. White count on admission was 13.6 she did have a temp of 101.7. Chest x-ray was negative for any acute changes influenza screening was negative. Urinalysis did show large leukocyte esterase but did have squamous epithelial cells. Likely contamination. Patient doesn't have any urinary symptoms. She has a known past medical history of hypothyroidism, hyperlipidemia, breast cancer, coronary artery disease with previous CABG, atrial fibrillation and possible congestive heart failure. Objective - Vital Signs Vital signs: Vital Signs Temp 98.5 F 02/10/18 06:21 Pulse 66 02/10/18 07:29 Resp 20 02/10/18 06:21 BP 117/62 02/10/18 06:21 Pulse Ox 94 L 02/10/18 07:16 Intake & Output 02/09/18 02/10/18 02/10/18 18:59 06:59 18:59 Intake Total 320 Balance 320 Weight 82 kg Intake: Oral 320 Other: Voiding Method Toilet # Voids 3 2 - Exam General appearance: alert, in no apparent distress Head exam: Present: atraumatic, normocephalic Eye exam: Present: normal appearance, PERRL ENT exam: Present: mucous membranes dry, other (Bilateral nasal congestion) Neck exam: Present: normal inspection. Absent: tenderness, meningismus supple no significant jugular venous distention no carotid bruit no lymphadenopathy noted Respiratory exam: Present: Bilateral expiratory wheezes (Scattered wheezing, good air entry), Cardiovascular Exam: Present: regular rate, normal rhythm GI/Abdominal exam: Present: soft. Absent: distended, tenderness, guarding Extremities exam: Present: normal inspection, normal capillary refill. Absent: pedal edema Neurological exam: Present: alert, oriented X3, CN II-XII intact. Absent: motor sensory deficit Psychiatric exam: Present: normal affect, normal mood Skin exam: Present: warm, dry, intact. Absent: cyanosis, diaphoretic - Labs CBC & Chem 7: 02/10/18 07:22 02/10/18 07:22 Labs: Abnormal Lab Results - Last 24 Hours (Table) 02/10/18 02/10/18 02/10/18 Range/Units 07:22 07:22 07:22 WBC 11.2 H (3.8-10.6) k/uL PT 28.9 H (9.0-12.0) sec INR 3.2 H (<1.2) BUN 21 H (7-17) mg/dL Total Protein 5.4 L (6.3-8.2) g/dL Albumin 3.1 L (3.5-5.0) g/dL Microbiology - Last 24 Hours (Table) 02/06/18 19:42 Blood Culture - Preliminary Blood No Growth after 72 hours Assessment and Plan Assessment: Purulent tracheobronchitis Acute COPD exacerbation/acute asthma Chest tightness likely related to above but occult processes like pulmonary embolism cannot be excluded Feeling of flutter fibrillation symptomatic transient resolved Urinary tract infection Sirs Dehydration and intravascular volume depletion Paroxysmal atrial fibrillation Coronary artery disease history of CABG Dyslipidemia hypertension hypertensive cardiovascular disease Plan: Gentle rehydration Broad-spectrum antibiotics can be switched to oral like Ceftin 250 twice a day Breathing treatments as needed Oral prednisone Continue Coumadin as planned Agree with flutter valve Deep breathing exercises incentive spirometry Further recommendations pending plan of care as per clinical response of the patient Time with Patient: Greater than 30
[2018-02-10 11:22] VITALS: PULSE 66
--- NOTE | 2018-02-10 11:38 | CDI ---
Last Revision, October 2017 Documentation Clarification Form Date: 02/08/2018 2:39:00 PM Resubmitted 02/10/2018 11:35:00 AM From: Lesli Miller CCS, CCDS Admit Date: 02/06/2018 10:56:00 PM Patient Name: Gila Eduardo Visit Number: [id number] Discharge Date: 02/10/2017 ATTENTION: The Clinical Documentation Specialists (CDI) and [facility] Coding Staff appreciate your assistance in clarifying documentation. Please respond to the clarification below the line at the bottom and electronically sign. The CDI & [facility] Coding staff will review the response and follow-up if needed. Please note: Queries are made part of the Legal Health Record. If you have any questions, please contact the author of this message via ITS. Dr. Elmo Santacruz: Asthma is documented in the pulmonary consult as "Acute COPD exacerbation/acute asthma." Patient history/risk factors: Atrial Fibrillation, CHF, Hyperlipidemia, Hypothyroidism, CAD & CABG. Clinical Indicators: Presented with dizziness, SOB, nausea, diagnosed with Sepsis & Acute Bronchitis. Radiology: CXR: No acute pulmonary process. Vital Signs: T 101.7, P 94, R 18, BP 103/56, PO 97 ra Treatment: O2 2Lnc, IV Fl 75, IV Fl bolus, Albuterol INH, IV Decadron, IV Protonix In your professional opinion, can you please further specify the following, if known? Acute Exacerbation Status asthmaticus Acute lower respiratory infection COPD (specify with or without exacerbation) Chronic obstructive bronchitis Other, please specify Unable to determine Severity: o Mild intermittent o Mild persistent o Moderate persistent o Severe persistent o Other, please specify o Unable to determine Form or Type: o Cough variant o Childhood o Exercise induced bronchospasm o Extrinsic allergic o Idiosyncratic o Intrinsic nonallergic o Late-onset o Mixed o Other, please specify o Unable to determine Please continue to document in your progress notes and discharge summary in order to capture severity of illness and risk of mortality. Include clinical findings that support your diagnosis. MTDD
--- NOTE | 2018-02-10 12:28 | P.DS ---
Providers Date of admission: 02/06/18 22:56 Expected date of discharge: 02/10/18 Attending physician: Olimpia Arce Consults: 02/07/18 14:35 Consult Physician Routine Consulting Provider: Elmo Santacruz Consult Reason/Comments: Bronchitis Do you want consulting provider notified?: Yes [facility] Course: 1. Acute tracheobronchitis with reactive airway disease, improved with bronchodilators. Augmentin and prednisone for 5 days. 2. Sepsis on presentation without septic shock: Blood culture negative to date. 3. Hypothyroidism: Continue levothyroxine 4. Paroxysmal atrial fibrillation: Coumadin dose changed to 3 mg at bedtime given supratherapeutic INR. Follow-up with PCP 5. Dizziness likely related to her sinus infection and bronchitis. Now resolved 6. History of coronary artery disease with previous CABG 7. Hyperlipidemia Patient Condition at Discharge: Good Plan - Discharge Summary Discharge Rx Participant: No New Discharge Prescriptions: New Amoxic-Pot Clav 875-125Mg [Augmentin 875-125] 1 each PO Q12HR #6 tab predniSONE 40 mg PO DAILY #6 tab Warfarin [Coumadin] 3 mg PO DAILY #30 tab Continue Ranitidine HCl 300 mg PO HS Nitroglycerin Sl Tabs [Nitrostat] 0.4 mg SUBLINGUAL Q5M PRN PRN Reason: Pain Dicyclomine [Bentyl] 10 mg PO TID PRN PRN Reason: IBS ALPRAZolam [Xanax] 0.25 mg PO Q6H PRN PRN Reason: Anxiety Spironolactone [Aldactone] 50 mg PO DAILY Fish Oil/Dha/Epa [Fish Oil 1,200 mg Fish Oil] 1 cap PO DAILY Levothyroxine Sodium [Synthroid] 50 mcg PO DAILY Lisinopril [Zestril] 2.5 mg PO BID Atorvastatin [Lipitor] 80 mg PO HS Furosemide [Lasix] 80 mg PO DAILY Propafenone [Rythmol] 75 mg PO HS Omeprazole 40 mg PO BID Atenolol [Tenormin] 25 mg PO DAILY traMADol HCL [Ultram] 50 mg PO Q6HR PRN PRN Reason: Pain Cholecalciferol [Vitamin D3] 5,000 unit PO DAILY Potassium Chloride ER [K-Dur 20] 20 meq PO DAILY Discontinued Warfarin [Coumadin] 6 mg PO SUTUTHSA Warfarin Sodium 5 mg PO MOWEFR Discharge Medication List ALPRAZolam [Xanax] 0.25 mg PO Q6H PRN 07/10/15 [History] Dicyclomine [Bentyl] 10 mg PO TID PRN 07/10/15 [History] Fish Oil/Dha/Epa [Fish Oil 1,200 mg Fish Oil] 1 cap PO DAILY 07/10/15 [History] Nitroglycerin Sl Tabs [Nitrostat] 0.4 mg SUBLINGUAL Q5M PRN 07/10/15 [History] Ranitidine HCl 300 mg PO HS 07/10/15 [History] Spironolactone [Aldactone] 50 mg PO DAILY 07/10/15 [History] Levothyroxine Sodium [Synthroid] 50 mcg PO DAILY 08/05/15 [History] Lisinopril [Zestril] 2.5 mg PO BID 08/05/15 [History] Atenolol [Tenormin] 25 mg PO DAILY 08/11/16 [History] Atorvastatin [Lipitor] 80 mg PO HS 08/11/16 [History] Furosemide [Lasix] 80 mg PO DAILY 08/11/16 [History] Omeprazole 40 mg PO BID 08/11/16 [History] Propafenone [Rythmol] 75 mg PO HS 08/11/16 [History] traMADol HCL [Ultram] 50 mg PO Q6HR PRN 08/11/16 [History] Cholecalciferol [Vitamin D3] 5,000 unit PO DAILY 02/07/18 [History] Potassium Chloride ER [K-Dur 20] 20 meq PO DAILY 02/07/18 [History] Amoxic-Pot Clav 875-125Mg [Augmentin 875-125] 1 each PO Q12HR #6 tab 02/10/18 [ Rx] Warfarin [Coumadin] 3 mg PO DAILY #30 tab 02/10/18 [Rx] predniSONE 40 mg PO DAILY #6 tab 02/10/18 [Rx] Follow up Appointment(s)/Referral(s): Yaritza Sutton MD [Primary Care Provider] - 3 Days Elmo Santacruz MD [STAFF PHYSICIAN] - 1 Week Patient Instructions/Handouts: COPD (Chronic Obstructive Pulmonary Disease) (DC ), Gastroesophageal Reflux Disease (DC) Activity/Diet/Wound Care/Special Instructions: Cardiac diet. Activity as tolerated. Discharge Disposition: HOME SELF-CARE
--- NOTE | 2018-02-14 07:59 | CDI ---
Last Revision, October 2017 Documentation Clarification Form Date: 02/08/2018 2:27:00 PM Resubmitted 02/14/18 07:57 AM From: Lesli Miller CCS, CCDS Admit Date: 02/06/2018 10:56:00 PM Patient Name: Gila Eduardo Visit Number: [id number] Discharge Date: 02/10/2018 ATTENTION: The Clinical Documentation Specialists (CDI) and [facility] Coding Staff appreciate your assistance in clarifying documentation. Please respond to the clarification below the line at the bottom and electronically sign. The CDI & [facility] Coding staff will review the response and follow-up if needed. Please note: Queries are made part of the Legal Health Record. If you have any questions, please contact the author of this message via ITS. Dr. Kiki Soliman: Per the History & Physical: "She has a known past medical history of hypothyroidism, hyperlipidemia, breast cancer, coronary artery disease with previous CABG, atrial fibrillation and possible congestive heart failure." Clinical Indicators: Presented with dizziness, productive cough, runny nose, nasal congestion, SOB, nausea, CAMARENA & lt ear pain. VS: T 101.7, P 94, R 18, BP 103/56, PO 97 ra Chest X Ray: No acute pulmonary process. Treatment: IV fl 75, IV fluid bolus x2, Albuterol INH, IV Azithromycin, IV Narcan, IV Decadron. Home Rx: Ultram, Coumadin, Aldactone, Ranitidine, Rythmol, KDur, Nitro sl, Zestril, Synthroid, Lasix 80 mg daily, Lipitor, Tenormin Consults: Pulmonary In your professional opinion, can you please clarify the acuity and type of CHF if known? Acute Chronic Acute on Chronic Diastolic Heart Failure Systolic Heart Failure Combined Diastolic & Systolic Unable to Determine Other, please specify Please continue to document in your progress notes and discharge summary in order to capture severity of illness and risk of mortality. Include clinical findings that support your diagnosis. MTDD
--- NOTE | 2018-02-16 08:38 | CDI ---
Last Revision, October 2017 Documentation Clarification Form Date: 02/08/2018 2:27:00 PM Resubmitted 3rd request. From: Lesli BryantMiller, CCS, CCDS Admit Date: 02/06/2018 10:56:00 PM Patient Name: Gila Eduardo Visit Number: [id number] Discharge Date: 02/10/2018 ATTENTION: The Clinical Documentation Specialists (CDI) and [facility] Coding Staff appreciate your assistance in clarifying documentation. Please respond to the clarification below the line at the bottom and electronically sign. The CDI & [facility] Coding staff will review the response and follow-up if needed. Please note: Queries are made part of the Legal Health Record. If you have any questions, please contact the author of this message via ITS. Dr. Kiki Soliman: Per the History & Physical: "She has a known past medical history of hypothyroidism, hyperlipidemia, breast cancer, coronary artery disease with previous CABG, atrial fibrillation and possible congestive heart failure." Clinical Indicators: Presented with dizziness, productive cough, runny nose, nasal congestion, SOB, nausea, CAMARENA & lt ear pain. VS: T 101.7, P 94, R 18, BP 103/56, PO 97 ra Chest X Ray: No acute pulmonary process. Treatment: IV fl 75, IV fluid bolus x2, Albuterol INH, IV Azithromycin, IV Narcan, IV Decadron. Home Rx: Ultram, Coumadin, Aldactone, Ranitidine, Rythmol, KDur, Nitro sl, Zestril, Synthroid, Lasix 80 mg daily, Lipitor, Tenormin Consults: Pulmonary In your professional opinion, can you please clarify the acuity and type of CHF if known? Acute Chronic Acute on Chronic Diastolic Heart Failure Systolic Heart Failure Combined Diastolic & Systolic Unable to Determine Other, please specify Please continue to document in your progress notes and discharge summary in order to capture severity of illness and risk of mortality. Include clinical findings that support your diagnosis. MTDD
== END 2018-02-10 15:40 | disposition home or self-care (01) | DRG 872 ==
LOC: EC 19:03 → 4MS4W 22:56
PROVIDERS: ADMIT Internal Medicine; ATTEND Internal Medicine
DX: A41.9 Sepsis, unspecified organism (principal); I48.92 Unspecified atrial flutter; J44.0 Chronic obstructive pulmonary disease with (acute) lower respiratory infection; J44.1 Chronic obstructive pulmonary disease with (acute) exacerbation; J45.21 Mild intermittent asthma with (acute) exacerbation; N39.0 Urinary tract infection, site not specified; E03.9 Hypothyroidism, unspecified; E78.5 Hyperlipidemia, unspecified; E86.0 Dehydration; I11.0 Hypertensive heart disease with heart failure; I25.10 Atherosclerotic heart disease of native coronary artery without angina pectoris; I48.0 Paroxysmal atrial fibrillation; I50.9 Heart failure, unspecified; J01.90 Acute sinusitis, unspecified; J20.9 Acute bronchitis, unspecified; K58.9 Irritable bowel syndrome, unspecified; R79.1 Abnormal coagulation profile; Z79.01 Long term (current) use of anticoagulants; Z82.49 Family history of ischemic heart disease and other diseases of the circulatory system; Z85.3 Personal history of malignant neoplasm of breast; Z90.710 Acquired absence of both cervix and uterus; Z95.1 Presence of aortocoronary bypass graft; Z96.643 Presence of artificial hip joint, bilateral; Z88.6 Allergy status to analgesic agent; Z88.2 Allergy status to sulfonamides; Z79.899 Other long term (current) drug therapy
CPT/HCPCS: 36415; 71046; 80053; 81001; 82550; 82553; 83605; 84484; 85025; 85379; 85610; 85730; 87040; 87086; 87502; 93005; 94640; 94760; 96361; 96374; 99285

== ENCOUNTER 2018-02-14 15:55 | Emergency (ER) | payer MEDICARE ==
--- NOTE | 2018-02-14 16:11 | ED ---
General Adult HPI - General Chief complaint: Dizziness Stated complaint: Dizziness Time Seen by Provider: 02/14/18 16:00 Source: patient, EMS, RN notes reviewed, old records reviewed Mode of arrival: ambulatory Limitations: no limitations - History of Present Illness Initial comments: This is a 77-year-old female to the ER today. Patient presents ER for evasive near syncopal event. Patient states she is recent hospital for similar symptoms as well as bronchitis, discharged on antibiotics and steroids which she finished yesterday. Patient states her blood pressure is maintained well prior to discharge. She states originally did drop below. She is nauseous at down to lunch she felt lightheaded and dizzy like she may pass out that her blood pressure was again low. Patient denies chest pain denies shortness of breath denies abdominal pain no headache. Patient currently states he feels back to normal - Related Data Home Medications Medication Instructions Recorded Confirmed ALPRAZolam [Xanax] 0.25 mg PO Q6H PRN 07/10/15 02/14/18 Dicyclomine [Bentyl] 10 mg PO TID PRN 07/10/15 02/14/18 Fish Oil/Dha/Epa [Fish Oil 1,200 1 cap PO DAILY 07/10/15 02/14/18 mg Fish Oil] Nitroglycerin Sl Tabs [Nitrostat] 0.4 mg SUBLINGUAL Q5M PRN 07/10/15 02/14/18 Ranitidine HCl 300 mg PO HS 07/10/15 02/14/18 Spironolactone [Aldactone] 50 mg PO DAILY 07/10/15 02/14/18 Levothyroxine Sodium [Synthroid] 50 mcg PO DAILY 08/05/15 02/14/18 Lisinopril [Zestril] 2.5 mg PO BID 08/05/15 02/14/18 Atenolol [Tenormin] 25 mg PO DAILY 08/11/16 02/14/18 Atorvastatin [Lipitor] 80 mg PO HS 08/11/16 02/14/18 Furosemide [Lasix] 80 mg PO DAILY 08/11/16 02/14/18 Omeprazole 40 mg PO BID 08/11/16 02/14/18 Propafenone [Rythmol] 75 mg PO HS 08/11/16 02/14/18 traMADol HCL [Ultram] 50 mg PO Q6HR PRN 08/11/16 02/14/18 Cholecalciferol [Vitamin D3] 5,000 unit PO DAILY 02/07/18 02/14/18 Potassium Chloride ER [K-Dur 20] 20 meq PO DAILY 02/07/18 02/14/18 Previous Rx's Medication Instructions Recorded Warfarin [Coumadin] 3 mg PO DAILY #30 tab 02/10/18 Allergies Allergy/AdvReac Type Severity Reaction Status Date / Time adhesive Allergy Rash/Hives Verified 02/14/18 16:20 aspirin Allergy Unknown Verified 02/14/18 16:20 Sulfa (Sulfonamide Allergy Rash/Hives Verified 02/14/18 16:20 Antibiotics) Review of Systems ROS Statement: Those systems with pertinent positive or pertinent negative responses have been documented in the HPI. ROS Other: All systems not noted in ROS Statement are negative. Past Medical History Past Medical History: Atrial Fibrillation, Cancer, Heart Failure, Hyperlipidemia , Thyroid Disorder Additional Past Medical History / Comment(s): BREAST CANCER with lymph removal on right side, IBS SEE DR DELEON'S H&P History of Any Multi-Drug Resistant Organisms: None Reported Past Surgical History: Coronary Bypass/CABG, Hernia Repair, Hysterectomy, Orthopedic Surgery, Pacemaker Additional Past Surgical History / Comment(s): RIGHT TOTAL HIP , LEFT TOTAL HIP Past Anesthesia/Blood Transfusion Reactions: No Reported Reaction Type of Cardiac Device: Unknown Device Placement Date:: 2015 Past Psychological History: No Psychological Hx Reported Smoking Status: Never smoker Past Alcohol Use History: Rare Past Drug Use History: None Reported - Past Family History Mother Family Medical History: Congestive Heart Failure (CHF) General Exam Limitations: no limitations General appearance: alert, in no apparent distress Head exam: Present: atraumatic, normocephalic, normal inspection Eye exam: Present: normal appearance, PERRL, EOMI. Absent: scleral icterus, conjunctival injection, periorbital swelling ENT exam: Present: normal exam, mucous membranes moist Neck exam: Present: normal inspection. Absent: tenderness, meningismus, lymphadenopathy Respiratory exam: Present: normal lung sounds bilaterally. Absent: respiratory distress, wheezes, rales, rhonchi, stridor Cardiovascular Exam: Present: regular rate, normal rhythm, normal heart sounds. Absent: systolic murmur, diastolic murmur, rubs, gallop, clicks GI/Abdominal exam: Present: soft, normal bowel sounds. Absent: distended, tenderness, guarding, rebound, rigid Extremities exam: Present: normal inspection, full ROM, normal capillary refill. Absent: tenderness, pedal edema, joint swelling, calf tenderness Back exam: Present: normal inspection Neurological exam: Present: alert, oriented X3, CN II-XII intact Psychiatric exam: Present: normal affect, normal mood Skin exam: Present: warm, dry, intact, normal color. Absent: rash Course Vital Signs 02/14/18 02/14/18 02/14/18 15:56 16:14 17:30 Temperature 97.1 F L 97.9 F Pulse Rate 63 60 Pulse Rate [ 60 Sitting] Pulse Rate [ 66 Standing] Pulse Rate [ 59 L Supine] Respiratory 18 18 Rate Blood Pressure 111/56 108/54 Blood Pressure 99/54 [Sitting] Blood Pressure 91/54 [Standing] Blood Pressure 99/50 [Supine] O2 Sat by Pulse 94 L 94 L Oximetry - Reevaluation(s) Reevaluation #1: 02/14/18 16:10 Medical record and prior hospitalization reviewed Reevaluation #2: 02/14/18 18:12 Patient is asymptomatic currently EKG Findings - EKG Comments: EKG Findings:: EKG shows normal sinus rhythm rate of 62, GA 208, QRS 04, QTC 440 Medical Decision Making - Medical Decision Making 77 female with near syncopal event, recent history of similar issue. Patient states she feels well, orthostatics are negative here. Blood pressure is normal. Patient to be discharged home - Lab Data Result diagrams: 02/14/18 16:04 02/14/18 16:04 Lab Results 02/14/18 02/14/18 02/14/18 Range/Units 16:04 16:04 16:04 WBC 13.8 H (3.8-10.6) k/uL RBC 4.38 (3.80-5.40) m/uL Hgb 12.9 (11.4-16.0) gm/dL Hct 38.3 (34.0-46.0) % MCV 87.3 (80.0-100.0) fL MCH 29.5 (25.0-35.0) pg MCHC 33.7 (31.0-37.0) g/dL RDW 15.4 (11.5-15.5) % Plt Count 338 (150-450) k/uL Neutrophils % 59 % Lymphocytes % 32 % Monocytes % 6 % Eosinophils % 1 % Basophils % 0 % Neutrophils # 8.1 H (1.3-7.7) k/uL Lymphocytes # 4.4 (1.0-4.8) k/uL Monocytes # 0.9 (0-1.0) k/uL Eosinophils # 0.2 (0-0.7) k/uL Basophils # 0.0 (0-0.2) k/uL PT (9.0-12.0) sec INR (<1.2) APTT (22.0-30.0) sec Sodium 136 L (137-145) mmol/L Potassium 4.2 (3.5-5.1) mmol/L Chloride 96 L (98-107) mmol/L Carbon Dioxide 28 (22-30) mmol/L Anion Gap 12 mmol/L BUN 26 H (7-17) mg/dL Creatinine 0.90 (0.52-1.04) mg/dL Est GFR (CKD-EPI)AfAm 73 (>60 ml/min/1.73 sqM) Est GFR (CKD-EPI)NonAf 63 (>60 ml/min/1.73 sqM) Glucose 196 H (74-99) mg/dL Calcium 8.9 (8.4-10.2) mg/dL Phosphorus 3.5 (2.5-4.5) mg/dL Magnesium 2.2 (1.6-2.3) mg/dL Total Bilirubin 0.5 (0.2-1.3) mg/dL AST 32 (14-36) U/L ALT 48 (9-52) U/L Alkaline Phosphatase 76 (38-126) U/L Total Creatine Kinase 24 L (30-135) U/L CK-MB (CK-2) 0.8 (0.0-2.4) ng/mL CK-MB (CK-2) Rel Index 3.3 Troponin I <0.012 (0.000-0.034) ng/mL Total Protein 5.8 L (6.3-8.2) g/dL Albumin 3.3 L (3.5-5.0) g/dL Urine Color Urine Appearance (Clear) Urine pH (5.0-8.0) Ur Specific [place] (1.001-1.035) Urine Protein (Negative) Urine Glucose (UA) (Negative) Urine Ketones (Negative) Urine Blood (Negative) Urine Nitrite (Negative) Urine Bilirubin (Negative) Urine Urobilinogen (<2.0) mg/dL Ur Leukocyte Esterase (Negative) Urine RBC (0-5) /hpf Urine WBC (0-5) /hpf Ur Squamous Epith Cells (0-4) /hpf Urine Bacteria (None) /hpf Hyaline Casts (0-2) /lpf Urine Mucus (None) /hpf 02/14/18 02/14/18 Range/Units 16:04 17:47 WBC (3.8-10.6) k/uL RBC (3.80-5.40) m/uL Hgb (11.4-16.0) gm/dL Hct (34.0-46.0) % MCV (80.0-100.0) fL MCH (25.0-35.0) pg MCHC (31.0-37.0) g/dL RDW (11.5-15.5) % Plt Count (150-450) k/uL Neutrophils % % Lymphocytes % % Monocytes % % Eosinophils % % Basophils % % Neutrophils # (1.3-7.7) k/uL Lymphocytes # (1.0-4.8) k/uL Monocytes # (0-1.0) k/uL Eosinophils # (0-0.7) k/uL Basophils # (0-0.2) k/uL PT 13.7 H (9.0-12.0) sec INR 1.5 H (<1.2) APTT 23.4 (22.0-30.0) sec Sodium (137-145) mmol/L Potassium (3.5-5.1) mmol/L Chloride (98-107) mmol/L Carbon Dioxide (22-30) mmol/L Anion Gap mmol/L BUN (7-17) mg/dL Creatinine (0.52-1.04) mg/dL Est GFR (CKD-EPI)AfAm (>60 ml/min/1.73 sqM) Est GFR (CKD-EPI)NonAf (>60 ml/min/1.73 sqM) Glucose (74-99) mg/dL Calcium (8.4-10.2) mg/dL Phosphorus (2.5-4.5) mg/dL Magnesium (1.6-2.3) mg/dL Total Bilirubin (0.2-1.3) mg/dL AST (14-36) U/L ALT (9-52) U/L Alkaline Phosphatase (38-126) U/L Total Creatine Kinase (30-135) U/L CK-MB (CK-2) (0.0-2.4) ng/mL CK-MB (CK-2) Rel Index Troponin I (0.000-0.034) ng/mL Total Protein (6.3-8.2) g/dL Albumin (3.5-5.0) g/dL Urine Color Light Yellow Urine Appearance Clear (Clear) Urine pH 6.5 (5.0-8.0) Ur Specific [place] 1.007 (1.001-1.035) Urine Protein Negative (Negative) Urine Glucose (UA) Negative (Negative) Urine Ketones Negative (Negative) Urine Blood Negative (Negative) Urine Nitrite Negative (Negative) Urine Bilirubin Negative (Negative) Urine Urobilinogen <2.0 (<2.0) mg/dL Ur Leukocyte Esterase Trace H (Negative) Urine RBC <1 (0-5) /hpf Urine WBC <1 (0-5) /hpf Ur Squamous Epith Cells <1 (0-4) /hpf Urine Bacteria Rare H (None) /hpf Hyaline Casts 3 H (0-2) /lpf Urine Mucus Rare H (None) /hpf Disposition Clinical Impression: Near syncope Disposition: HOME SELF-CARE Condition: Good Instructions: Near Syncope (ED) Is patient prescribed a controlled substance at discharge?: No If prescribed controlled substance>3 days was MAPS reviewed?: No When asked, does pt state using other controlled substances?: Yes Referrals: Yaritza Sutton MD [Primary Care Provider] - 1-2 days
[2018-02-14] MEDS ORDERED: SODIUM CHLORIDE 0.9% 1,000 ML IV STA (16:32)
[2018-02-14 16:52] LABS: Basophils % (A) 0 %; Eosinophils # (A) 0.2 k/uL (0-0.7); Eosinophils % (A) 1 %; HCT 38.3 % (34.0-46.0); HGB 12.9 gm/dL (11.4-16.0); Lymphocytes # (A) 4.4 k/uL (1.0-4.8); Lymphocytes % (A) 32 %; MCH 29.5 pg (25.0-35.0); MCHC 33.7 g/dL (31.0-37.0); MCV 87.3 fL (80.0-100.0); Mean Platelet Volume 7.7; Monocytes # (A) 0.9 k/uL (0-1.0); Monocytes % (A) 6 %; Neutrophils # (A) 8.1 k/uL (1.3-7.7); Neutrophils % (A) 59 %; Platelet Count 338 k/uL (150-450); RBC 4.38 m/uL (3.80-5.40); RDW 15.4 % (11.5-15.5); WBC 13.8 k/uL (3.8-10.6)
[2018-02-14 17:00] LABS: INR 1.5 (<1.2); Partial Thromboplastin Time 23.4 sec (22.0-30.0); Prothrombin Time 13.7 sec (9.0-12.0)
[2018-02-14 17:06] LABS: Albumin 3.3 g/dL (3.5-5.0); Calcium 8.9 mg/dL (8.4-10.2); Magnesium 2.2 mg/dL (1.6-2.3); Phosphorus 3.5 mg/dL (2.5-4.5); Potassium 4.2 mmol/L (3.5-5.1); Total Bilirubin 0.5 mg/dL (0.2-1.3); Total Protein 5.8 g/dL (6.3-8.2)
[2018-02-14 17:21] LABS: Creatine Kinase 24 U/L (30-135)
[2018-02-14 17:32] LABS: Creatine Kinase MB 0.8 ng/mL (0.0-2.4); Troponin I <0.012 ng/mL (0.000-0.034)
[2018-02-14 18:07] LABS: Appearance,Urine Clear (Clear); Bacteria,Urine Rare /hpf; Bilirubin,Urine Negative (Negative); Blood,Urine Negative (Negative); Color,Urine Light Yellow; Glucose,Urine (UA) Negative (Negative); Hyaline Casts,Urine 3 /lpf (0-2); Ketones,Urine Negative (Negative); Leukocyte Esterase,Urine Trace (Negative); Mucus,Urine Rare /hpf; Nitrite,Urine Negative (Negative); PH, Urine 6.5 (5.0-8.0); Protein,Urine Negative (Negative); RBC,Urine <1 /hpf (0-5); Specific Gravity,Urine 1.007 (1.001-1.035); Squamous Epithelial Cell,Urine <1 /hpf (0-4); Urobilinogen,Urine <2.0 mg/dL (<2.0); WBC,Urine <1 /hpf (0-5)
[2018-02-14 18:49] VITALS: BP 95/52; PULSE 55; RESP 14; TEMP 97
== END 2018-02-14 18:55 | disposition home or self-care (01) ==
LOC: EC 15:55
DX: R55 Syncope and collapse (principal); R42 Dizziness and giddiness; R11.0 Nausea; R03.0 Elevated blood-pressure reading, without diagnosis of hypertension; E78.5 Hyperlipidemia, unspecified; E07.9 Disorder of thyroid, unspecified; I50.9 Heart failure, unspecified; Z88.2 Allergy status to sulfonamides; Z88.6 Allergy status to analgesic agent; Z91.048 Other nonmedicinal substance allergy status; Z79.899 Other long term (current) drug therapy
CPT/HCPCS: 36415; 80053; 81001; 82550; 82553; 83735; 84100; 84484; 85025; 85610; 85730; 87077; 87086; 87186; 93005; 96360; 99284

== ENCOUNTER → 2018-02-23 | Outpatient (CLI) | payer MEDICARE ==
--- NOTE | 2018-02-24 07:40 | MM ---
Reason for exam: additional evaluation requested from prior study. Last mammogram was performed 1 year ago. History: Patient is postmenopausal, has history of breast cancer at age 60, and previous chest radiation therapy. Lumpectomy of the right breast. Chemotherapy. Radiation therapy of the right breast. Took estrogen for 2 years beginning at age 57. Took progesterone for 2 years beginning at age 57. Physical Findings: Nurse did not find any significant physical abnormalities on exam. MG 3D Diag Mammo W/Cad EDVIN Bilateral CC and MLO view(s) were taken. LM, spot compression MLO, and spot compression CC view(s) were taken of the right breast. Prior study comparison: February 17, 2017, bilateral MG 3d diag mammo w/cad EDVIN. February 14, 2016, bilateral MG 3d diag mammo w/cad EDVIN. The breast tissue is heterogeneously dense. This may lower the sensitivity of mammography. Benign calcifications bilaterally. There is chronic nodularity bilaterally. These results were verbally communicated with the patient and result sheet given to the patient on 02/23/18. ASSESSMENT: Benign, BI-RAD 2 RECOMMENDATION: Routine screening mammogram of both breasts in 1 year.
== END | disposition home or self-care (01) ==
LOC: RADMAMWWP 14:15
PROVIDERS: ATTEND Family Medicine
DX: N63.0 Unspecified lump in unspecified breast (principal); Z85.3 Personal history of malignant neoplasm of breast
CPT/HCPCS: 77066; G0279

== ENCOUNTER → 2019-04-03 | Outpatient (CLI) | payer MEDICARE ==
--- NOTE | 2019-04-04 11:01 | MM ---
Reason for exam: additional evaluation requested from prior study. Last mammogram was performed 1 year and 1 month ago. History: Patient is postmenopausal, has history of breast cancer at age 60, and previous chest radiation therapy. Lumpectomy of the right breast. Chemotherapy. Radiation therapy of the right breast. Took estrogen for 2 years beginning at age 57. Took progesterone for 2 years beginning at age 57. Physical Findings: Nurse did not find any significant physical abnormalities on exam. MG 3D Diag Mammo W/Cad EDVIN Bilateral CC and MLO view(s) were taken. Prior study comparison: February 23, 2018, bilateral MG 3d diag mammo w/cad EDVIN. February 17, 2017, bilateral MG 3d diag mammo w/cad EDVIN. The breast tissue is heterogeneously dense. This may lower the sensitivity of mammography. Benign appearing bilateral calcifications. No suspicious abnormality. Post surgical/therapy change on the right. These results were verbally communicated with the patient and result sheet given to the patient on 04/03/19. ASSESSMENT: Benign, BI-RAD 2 RECOMMENDATION: Follow-up diagnostic mammogram of both breasts in 1 year.
== END | disposition home or self-care (01) ==
LOC: RADMAMWWP 09:35
PROVIDERS: ATTEND Family Medicine
DX: Z08 Encounter for follow-up examination after completed treatment for malignant neoplasm (principal); Z85.3 Personal history of malignant neoplasm of breast
CPT/HCPCS: 77066; G0279; 77062

== ENCOUNTER → 2020-04-18 | Outpatient (CLI) | payer MEDICARE ==
--- NOTE | 2020-04-18 11:41 | MM ---
Reason for exam: additional evaluation requested from prior study. Last mammogram was performed 1 year ago. History: Patient is postmenopausal, has history of breast cancer at age 60, and previous chest radiation therapy. Lumpectomy of the right breast. Chemotherapy. Radiation therapy of the right breast. Took estrogen for 2 years beginning at age 57. Took progesterone for 2 years beginning at age 57. Physical Findings: Nurse did not find any significant physical abnormalities on exam. MG 3D Diag Mammo W/Cad EDVIN Bilateral CC and MLO view(s) were taken. Prior study comparison: April 03, 2019, bilateral MG 3d diag mammo w/cad EDVIN. February 23, 2018, bilateral MG 3d diag mammo w/cad EDVIN. The breast tissue is heterogeneously dense. This may lower the sensitivity of mammography. Finding #1: Architectural distortion in the right breast consistent with known lumpectomy changes. Finding #2: There are typically benign vascular, dystrophic, round, linear calcifications in both breasts greaster in the right breast. There is a chronic nodularity in the left breast. There is no discrete abnormality. Left axillary pacemaker. These results were verbally communicated with the patient and result sheet given to the patient on 04/18/20. ASSESSMENT: Benign, BI-RAD 2 RECOMMENDATION: Follow-up diagnostic mammogram of both breasts in 1 year.
== END | disposition home or self-care (01) ==
LOC: RADMAMWWP 10:50
PROVIDERS: ATTEND Family Medicine
DX: C50.911 Malignant neoplasm of unspecified site of right female breast (principal)
CPT/HCPCS: 77066; G0279; 77062

== ENCOUNTER 2020-06-11 20:52 | Observation (INO) | payer MEDICARE ==
--- NOTE | 2020-06-11 21:10 | ED ---
Chest Pain HPI - General Chief Complaint: Chest Pain Stated Complaint: Chest Pain Time Seen by Provider: 06/11/20 20:56 Source: patient, EMS, RN notes reviewed, old records reviewed Mode of arrival: EMS Limitations: no limitations - History of Present Illness Initial Comments: This is a 72-year-old female heart prior history of heart disease 1 CABG 1 ve ssel, does have A. fib on anticoagulation coming in with chest pain started about 3 PM tonight. Ration states the chest pain persisted despite aspirin and nitro she did come by EMS he states he [place] give her fentanyl that resolved her pain. With the chest pain she also was a little bit sweaty but no shortness of MD Complaint: chest pain -: hour(s) Onset: during rest Pain Location: substernal Pain Radiation: none Severity: moderate Severity scale (1-10): 5 Quality: heaviness Consistency: constant Improves With: nothing Worsens With: nothing Anginal Symptoms: diaphoresis, sense of impending doom Other Symptoms: palpitations Treatments Prior to Arrival: aspirin, nitroglycerin - Related Data Home Medications Medication Instructions Recorded Confirmed ALPRAZolam [Xanax] 0.25 mg PO Q6H PRN 07/10/15 06/11/20 Dicyclomine [Bentyl] 10 mg PO QID PRN 07/10/15 06/11/20 Fish Oil/Dha/Epa [Fish Oil 1,200 1 cap PO DAILY 07/10/15 06/11/20 mg Fish Oil] Nitroglycerin Sl Tabs [Nitrostat] 0.4 mg SUBLINGUAL Q5M PRN 07/10/15 06/11/20 Spironolactone [Aldactone] 50 mg PO DAILY 07/10/15 06/11/20 Atorvastatin [Lipitor] 80 mg PO HS 08/11/16 06/11/20 Furosemide [Lasix] 80 mg PO DAILY 08/11/16 06/11/20 Omeprazole 40 mg PO DAILY 08/11/16 06/11/20 Propafenone [Rythmol] 150 mg PO DAILY 08/11/16 06/11/20 atenoloL [Tenormin] 25 mg PO DAILY 08/11/16 06/11/20 Cholecalciferol [Vitamin D3 (25 5,000 unit PO DAILY 02/07/18 06/11/20 Mcg = 1000 Iu)] Aspirin EC [Ecotrin Low Dose] 81 mg PO DAILY 06/11/20 06/11/20 Ezetimibe [Zetia] 10 mg PO DAILY 06/11/20 06/11/20 Levothyroxine Sodium [Synthroid] 88 mcg PO DAILY 06/11/20 06/11/20 Loratadine [Claritin] 10 mg PO DAILY 06/11/20 06/11/20 Melatonin 5 mg PO HS PRN 06/11/20 06/11/20 Warfarin Sodium 6 mg PO MOTH 06/11/20 06/11/20 Warfarin [Coumadin] 5 mg PO [id number] 06/11/20 06/11/20 Allergies Allergy/AdvReac Type Severity Reaction Status Date / Time adhesive Allergy Rash/Hives Verified 06/11/20 22:06 aspirin Allergy Unknown Verified 06/11/20 22:06 Sulfa (Sulfonamide Allergy Rash/Hives Verified 06/11/20 22:06 Antibiotics) Review of Systems ROS Statement: Those systems with pertinent positive or pertinent negative responses have been documented in the HPI. ROS Other: All systems not noted in ROS Statement are negative. EKG Findings - EKG Comments: EKG Findings:: EKG is sinus bradycardia 59 ID to 36 QRS 14 QTc 437 Past Medical History Past Medical History: Atrial Fibrillation, Cancer, Heart Failure, Hyperlipidemia, Thyroid Disorder Additional Past Medical History / Comment(s): BREAST CANCER with lymph removal on right side, IBS SEE DR DELEON'S H&P History of Any Multi-Drug Resistant Organisms: None Reported Past Surgical History: Coronary Bypass/CABG, Hernia Repair, Hysterectomy, Orthopedic Surgery, Pacemaker Additional Past Surgical History / Comment(s): RIGHT TOTAL HIP , LEFT TOTAL HIP Past Anesthesia/Blood Transfusion Reactions: No Reported Reaction Type of Cardiac Device: Unknown Device Placement Date:: 2015 Past Psychological History: No Psychological Hx Reported Past Alcohol Use History: Rare Past Drug Use History: None Reported - Past Family History Mother Family Medical History: Congestive Heart Failure (CHF) General Exam Limitations: no limitations General appearance: alert, in no apparent distress Head exam: Present: atraumatic, normocephalic, normal inspection Eye exam: Present: normal appearance, PERRL, EOMI. Absent: scleral icterus, conjunctival injection, periorbital swelling ENT exam: Present: normal exam, mucous membranes moist Neck exam: Present: normal inspection. Absent: tenderness, meningismus, lymphadenopathy Respiratory exam: Present: normal lung sounds bilaterally. Absent: respiratory distress, wheezes, rales, rhonchi, stridor Cardiovascular Exam: Present: regular rate, normal rhythm, normal heart sounds. Absent: systolic murmur, diastolic murmur, rubs, gallop, clicks GI/Abdominal exam: Present: soft, normal bowel sounds. Absent: distended, tenderness, guarding, rebound, rigid Extremities exam: Present: normal inspection, full ROM, normal capillary refill. Absent: tenderness, pedal edema, joint swelling, calf tenderness Back exam: Present: normal inspection Neurological exam: Present: alert, oriented X3, CN II-XII intact Psychiatric exam: Present: normal affect, normal mood Skin exam: Present: warm, dry, intact, normal color. Absent: rash Course Vital Signs 06/11/20 06/11/20 06/11/20 20:54 21:27 22:00 Temperature 98.1 F Pulse Rate 61 60 Pulse Rate [ 60 Bilateral] Respiratory 16 18 Rate Blood Pressure 105/64 100/58 O2 Sat by Pulse 97 98 Oximetry - Reevaluation(s) Reevaluation #1: 06/11/20 22:38 Medical records reviewed Reevaluation #2: 06/11/20 22:38 Patient states final still is covered her chest pain Chest Pain MDM - MDM 72 female for ER for chest pain evaluation. Patient be admitted for cardiac observation Disposition Clinical Impression: Chest pain, Acute hyperventilation syndrome Disposition: ADMITTED IP TO THIS HOSP Condition: Undetermined Instructions (If sedation given, give patient instructions): Chest Pain (ED) Is patient prescribed a controlled substance at d/c from ED?: No Referrals: Yaritza Sutton MD [Primary Care Provider] - 1-2 days
[2020-06-11 21:22] LABS: Basophils # (A) 0.1 k/uL (0-0.2); Basophils % (A) 1 %; Eosinophils # (A) 0.3 k/uL (0-0.7); Eosinophils % (A) 2 %; HCT 36.8 % (34.0-46.0); HGB 12.2 gm/dL (11.4-16.0); Lymphocytes # (A) 2.6 k/uL (1.0-4.8); Lymphocytes % (A) 24 %; MCH 29.4 pg (25.0-35.0); MCHC 33.1 g/dL (31.0-37.0); MCV 88.9 fL (80.0-100.0); Monocytes # (A) 0.6 k/uL (0-1.0); Monocytes % (A) 5 %; Neutrophils # (A) 7.2 k/uL (1.3-7.7); Neutrophils % (A) 66 %; Platelet Count 224 k/uL (150-450); RBC 4.14 m/uL (3.80-5.40); RDW 14.1 % (11.5-15.5); WBC 10.9 k/uL (3.8-10.6)
--- NOTE | 2020-06-11 21:34 | XR ---
EXAMINATION TYPE: XR chest 2V DATE OF EXAM: 06/11/2020 COMPARISON: Prior chest x-ray 02/06/2018 HISTORY: Chest pain TECHNIQUE: Frontal and lateral views of the chest are obtained. FINDINGS: There is no focal air space opacity, pleural effusion, or pneumothorax seen. The cardiac silhouette size is prominent although patient is rotated. The aorta is dense. Patient is post median sternotomy. There are coronary artery calcifications present. The osseous structures are intact. The re is a generator in left pectoral region, leads are present right atrium and ventricle. IMPRESSION: No acute cardiopulmonary process. Heart size may be accentuated by rotation.
[2020-06-11 21:35] LABS: Albumin 3.6 g/dL (3.5-5.0); Calcium 8.7 mg/dL (8.4-10.2); INR 3.2 (<1.2); Magnesium 2.1 mg/dL (1.6-2.3); Partial Thromboplastin Time 34.7 sec (22.0-30.0); Potassium 4.1 mmol/L (3.5-5.1); Prothrombin Time 30.9 sec (9.0-12.0); Total Bilirubin 0.6 mg/dL (0.2-1.3)
[2020-06-11 22:27] VITALS: RESP 18
[2020-06-11] MEDS ORDERED: NITROGLYCERIN SL TABS 0.4 MG TAB SUBLINGUAL PRN (22:37)
[2020-06-12 03:42] LABS: Cholesterol 113 mg/dL (<200); HDL Cholesterol 55 mg/dL (40-60); LDL Cholesterol,Calculated 42 mg/dL (0-99); Triglycerides 79 mg/dL (<150)
[2020-06-12] MEDS ORDERED: SPIRONOLACTONE 25 MG TAB PO SCH (09:00)
[2020-06-12] MEDS ORDERED: FUROSEMIDE 80 MG TAB PO SCH (09:00)
[2020-06-12] MEDS ORDERED: ASPIRIN 81 MG PO SCH (09:00)
[2020-06-12] MEDS ORDERED: EZETIMIBE 10 MG TAB PO SCH (09:00)
[2020-06-12] MEDS ORDERED: atenoloL 25 MG TAB PO SCH (09:00)
[2020-06-12] MEDS ORDERED: NITROGLYCERIN SL TABS 0.4 MG TAB SUBLINGUAL PRN (09:55)
[2020-06-12] MEDS ORDERED: MELATONIN 5 MG TABLET PO PRN (09:55)
[2020-06-12] MEDS ORDERED: ALPRAZolam 0.25 MG TAB PO PRN (09:55)
[2020-06-12] MEDS ORDERED: DICYCLOMINE 10 MG CAP PO PRN (09:55)
[2020-06-12] MEDS ORDERED: PANTOPRAZOLE 40 MG TABLET PO SCH (10:00)
[2020-06-12] MEDS ORDERED: LORATADINE 10 MG TAB PO SCH (10:00)
[2020-06-12] MEDS ORDERED: PROPAFENONE 150 MG TAB PO SCH (10:00)
[2020-06-12] MEDS ORDERED: LEVOTHYROXINE 88 MCG TAB PO SCH (10:00)
[2020-06-12] MEDS ORDERED: NON FORMULARY DRUG (Fish Oil/Dha/Epa [Fish Oil 1,200 Mg Fish Oil] 1 CAP) PO SCH (10:00)
[2020-06-12] MEDS ORDERED: CHOLECALCIFEROL 1,000 UNIT TAB PO SCH (10:00)
--- NOTE | 2020-06-12 10:16 | P.CRDCN ---
History of Present Illness History of present illness: HISTORY OF PRESENTING ILLNESS This is a pleasant 80-year-old female past medical history significant for coronary artery disease status post single-vessel bypass in 2003, sick sinus syndrome status post permanent pacemaker implantation, paroxysmal atrial fibrillation on long-term anticoagulation, hypertension and dyslipidemia. She follows in the office with Dr. Santo. We have been asked to see in consultation for chest pain. She recently saw Dr. Aguilar in the office in May was complaining of exertional shortness of breath with mild chores around the house. At that time he sent her for a dobutamine stress echocardiogram was negative for stress-induced ischemia. She also has been having a productive cough for the previous 9 months. He recommended she have a pulmonary evaluation as her shortness of breath did not appear to be related to cardiac etiology. She states yesterday afternoon she started feeling discomfort in her chest described as an ache that radiated across her chest and up into her head and back. She states she felt achy all over. EMS administered fentanyl and the pain subsided. She has had no further pain since arriving at the hospital. DIAGNOSTICS EKG reveals sinus mechanism with first-degree AV block and right bundle branch block with nonspecific ST abnormalities in the precordial leads. Heart rate is 59. Repeat EKG this morning with no ischemic changes. Chest xray negative for an acute cardiopulmonary process. Laboratory reviewed, WBC 10.9, hemoglobin 12.2, platelets 224, INR 3.2, sodium 128, potassium 4.1, creatinine 0.97, cardiac enzymes negative 3, NT proBNP 149, LDL 42 and HDL 55. Current cardiac medications include atorvastatin 80 mg at bedtime, Lasix 80 mg daily, Aldactone 50 mg daily, Zetia 10 mg daily, atenolol 25 mg daily, aspirin 81 mg daily and Coumadin. Rythmol was recently discontinued secondary to underlying coronary artery disease. REVIEW OF SYSTEMS At the time of my exam: CONSTITUTIONAL: Denies fever or chills. CARDIOVASCULAR: Denies chest pain, shortness of breath, orthopnea, PND or palpitations. RESPIRATORY: Denies cough. GASTROINTESTINAL: Denies abdominal pain, diarrhea, constipation, nausea or vomiting. MUSCULOSKELETAL: Denies myalgias. NEUROLOGIC: Denies numbness, tingling or weakness. ENDOCRINE: Denies fatigue, weight change, polydipsia or polyurina. GENITOURINARY: Denies burning, hematuria or urgency with micturation. HEMATOLOGIC: Denies history of anemia or bleeding. PHYSICAL EXAMINATION Blood pressure 103/53 heart rate 64 afebrile and maintaining oxygen saturation on room air. CONSTITUTIONAL: No apparent distress. HEENT: Head is normocephalic. Pupils are equal, round. Sclerae anicteric. Mucous membranes of the mouth are moist. No JVD. No carotid bruit. CHEST EXAMINATION: Lungs are clear to auscultation. No chest wall tenderness is noted on palpation or with deep breathing. HEART EXAMINATION: Regular rate and rhythm. S1, S2 heard. No murmurs, gallops or rub. ABDOMEN: Soft, nontender. Positive bowel sounds. EXTREMITIES: 2+ peripheral pulses, trace bilateral lower extremity nonpitting edema and no calf tenderness. NEUROLOGIC EXAMINATION: Patient is awake, alert and oriented x3. ASSESSMENT Chest pain, atypical for angina. An acute coronary event has been ruled out and normal stress test in the office recently. Hyponatremia Leukocytosis, minimal Coronary artery disease status post single-vessel bypass 2003 Paroxysmal atrial fibrillation on long-term anticoagulation currently maintaining sinus mechanism Sick sinus syndrome status post permanent pacemaker implantation Hypertension Dyslipidemia PLAN An acute coronary event has been ruled out. Recent stress test in the office was negative for stress-induced ischemia. Obtain 2-D echocardiogram and Doppler study to assess cardiac structure and function. Consider pulmonary etiology for persistent shortness of breath. Clinically she is euvolemic and not in acute heart failure. Follow-up upon discharge with Dr. Santo in the office. Thank you kindly for this consultation. Nurse Practitioner note has been reviewed, I agree with a documented findings and plan of care. Patient was seen and examined. Past Medical History Past Medical History: Atrial Fibrillation, Cancer, Heart Failure, Hyperlipidemia, Thyroid Disorder Additional Past Medical History / Comment(s): BREAST CANCER with lymph removal on right side, IBS SEE DR SANTO'S H&P History of Any Multi-Drug Resistant Organisms: None Reported Past Surgical History: Coronary Bypass/CABG, Hernia Repair, Hysterectomy, Orthopedic Surgery, Pacemaker Additional Past Surgical History / Comment(s): RIGHT TOTAL HIP , LEFT TOTAL HIP Past Anesthesia/Blood Transfusion Reactions: No Reported Reaction Type of Cardiac Device: Unknown Device Placement Date:: 2015 Past Psychological History: No Psychological Hx Reported Smoking Status: Never smoker Past Alcohol Use History: Rare Past Drug Use History: None Reported - Past Family History Mother Family Medical History: Congestive Heart Failure (CHF) Medications and Allergies Home Medications Medication Instructions Recorded Confirmed Type ALPRAZolam [Xanax] 0.25 mg PO Q6H PRN 07/10/15 06/11/20 History Dicyclomine [Bentyl] 10 mg PO QID PRN 07/10/15 06/11/20 History Fish Oil/Dha/Epa [Fish Oil 1,200 1 cap PO DAILY 07/10/15 06/11/20 History mg Fish Oil] Nitroglycerin Sl Tabs [Nitrostat] 0.4 mg SUBLINGUAL Q5M PRN 07/10/15 06/11/20 History Spironolactone [Aldactone] 50 mg PO DAILY 07/10/15 06/11/20 History Atorvastatin [Lipitor] 80 mg PO HS 08/11/16 06/11/20 History Furosemide [Lasix] 80 mg PO DAILY 08/11/16 06/11/20 History Omeprazole 40 mg PO DAILY 08/11/16 06/11/20 History Propafenone [Rythmol] 150 mg PO DAILY 08/11/16 06/11/20 History atenoloL [Tenormin] 25 mg PO DAILY 08/11/16 06/11/20 History Cholecalciferol [Vitamin D3 (25 5,000 unit PO DAILY 02/07/18 06/11/20 History Mcg = 1000 Iu)] Aspirin EC [Ecotrin Low Dose] 81 mg PO DAILY 06/11/20 06/11/20 History Ezetimibe [Zetia] 10 mg PO DAILY 06/11/20 06/11/20 History Levothyroxine Sodium [Synthroid] 88 mcg PO DAILY 06/11/20 06/11/20 History Loratadine [Claritin] 10 mg PO DAILY 06/11/20 06/11/20 History Melatonin 5 mg PO HS PRN 06/11/20 06/11/20 History Warfarin Sodium 6 mg PO MOTH 06/11/20 06/11/20 History Warfarin [Coumadin] 5 mg PO SUTUWEFRSA 06/11/20 06/11/20 History Allergies Allergy/AdvReac Type Severity Reaction Status Date / Time adhesive Allergy Rash/Hives Verified 06/11/20 22:06 aspirin Allergy Unknown Verified 06/11/20 22:06 Sulfa (Sulfonamide Allergy Rash/Hives Verified 06/11/20 22:06 Antibiotics) Physical Exam Vitals: Vital Signs Temp Pulse Pulse Resp BP BP Pulse Ox 06/12/20 01:00 97.7 F 64 18 103/53 96 06/11/20 22:53 97.7 F 64 18 103/56 96 06/11/20 22:00 60 18 100/58 98 06/11/20 21:27 60 06/11/20 20:54 98.1 F 61 16 105/64 97 Intake and Output 06/11/20 06/12/20 06/12/20 22:59 06:59 14:59 Intake Total 450 0 Balance 450 0 Intake: Oral 450 0 Other: Voiding Method Toilet # Voids 1 1 Weight 89.358 kg Results 06/11/20 21:12 06/11/20 21:12 Cardiac Enzymes 06/11/20 06/11/20 06/12/20 Range/Units 21:12 21:12 00:18 AST 68 H (14-36) U/L Troponin I <0.012 <0.012 (0.000-0.034) ng/mL 06/12/20 Range/Units 03:15 AST (14-36) U/L Troponin I <0.012 (0.000-0.034) ng/mL Coagulation 06/11/20 Range/Units 21:12 PT 30.9 H (9.0-12.0) sec APTT 34.7 H (22.0-30.0) sec Lipids 06/12/20 Range/Units 03:15 Triglycerides 79 (<150) mg/dL Cholesterol 113 (<200) mg/dL HDL Cholesterol 55 (40-60) mg/dL CBC 06/11/20 Range/Units 21:12 WBC 10.9 H (3.8-10.6) k/uL RBC 4.14 (3.80-5.40) m/uL Hgb 12.2 (11.4-16.0) gm/dL Hct 36.8 (34.0-46.0) % Plt Count 224 (150-450) k/uL Comprehensive Metabolic Panel 06/11/20 Range/Units 21:12 Sodium 128 L (137-145) mmol/L Potassium 4.1 (3.5-5.1) mmol/L Chloride 94 L (98-107) mmol/L Carbon Dioxide 25 (22-30) mmol/L BUN 22 H (7-17) mg/dL Creatinine 0.97 (0.52-1.04) mg/dL Glucose 119 H (74-99) mg/dL Calcium 8.7 (8.4-10.2) mg/dL AST 68 H (14-36) U/L ALT 43 H (4-34) U/L Alkaline Phosphatase 104 (38-126) U/L Total Protein 6.0 L (6.3-8.2) g/dL Albumin 3.6 (3.5-5.0) g/dL Current Medications Generic Name Dose Route Start Last Admin Trade Name Freq PRN Reason Stop Dose Admin Aspirin 81 mg 06/12/20 09:00 Aspirin PO DAILY [facility] Atenolol 25 mg 06/12/20 09:00 Tenormin PO DAILY [facility] Atorvastatin Calcium 80 mg 06/12/20 21:00 Lipitor PO HS [facility] Ezetimibe 10 mg 06/12/20 09:00 Zetia PO DAILY [facility] Furosemide 80 mg 06/12/20 09:00 Lasix PO DAILY [facility] Nitroglycerin 0.4 mg 06/11/20 22:37 Nitrostat SUBLINGUAL Q5M PRN Chest Pain Spironolactone 50 mg 06/12/20 09:00 Aldactone PO DAILY [facility] Warfarin Sodium 5 mg 06/12/20 18:00 Coumadin PO [id number] [facility] Protocol Warfarin Sodium 6 mg 06/13/20 18:00 Coumadin PO [id number] [facility] Protocol Intake and Output 06/11/20 06/12/20 06/12/20 22:59 06:59 14:59 Intake Total 450 0 Balance 450 0 Intake: Oral 450 0 Other: Voiding Method Toilet # Voids 1 1 Weight 89.358 kg 06/11/20 21:12 06/11/20 21:12
[2020-06-12 10:50] VITALS: BP 110/62; TEMP 97.5
--- NOTE | 2020-06-12 13:18 | P.HPIM ---
History of Present Illness H&P Date: 06/12/20 Chief Complaint: Chest pain Gila Eduardo, is an 80-year-old female with known history of coronary artery disease with history of single vessel bypass graft surgery in 2003, history of hypertension, hyperlipidemia, sick sinus syndrome with pacemaker placement, and history of paroxysmal atrial fibrillation maintained on Coumadin, who presented to [facility] emergency room with a chief complaint of chest pain. Patient's primary care physician is Dr. Sutton, her wire wrapper machine operator is Dr. Forbes. Patient stated that on the day of admission she started having discomfort in her chest radiating to her neck and to her back, her symptoms persisted and she dec ided to call 911 and come to emergency room otherwise she denies any other symptoms there was no diaphoresis no nausea or vomiting and no shortness of breath. Past Medical History Past Medical History: Atrial Fibrillation, Cancer, Heart Failure, Hyperlipidem ia, Thyroid Disorder Additional Past Medical History / Comment(s): BREAST CANCER with lymph removal on right side, IBS SEE DR DELEON'S H&P History of Any Multi-Drug Resistant Organisms: None Reported Past Surgical History: Coronary Bypass/CABG, Hernia Repair, Hysterectomy, Orthopedic Surgery, Pacemaker Additional Past Surgical History / Comment(s): RIGHT TOTAL HIP , LEFT TOTAL HIP Past Anesthesia/Blood Transfusion Reactions: No Reported Reaction Type of Cardiac Device: Unknown Device Placement Date:: 2015 Past Psychological History: No Psychological Hx Reported Smoking Status: Never smoker Past Alcohol Use History: Rare Past Drug Use History: None Reported - Past Family History Mother Family Medical History: Congestive Heart Failure (CHF) Medications and Allergies Home Medications Medication Instructions Recorded Confirmed Type ALPRAZolam [Xanax] 0.25 mg PO Q6H PRN 07/10/15 06/11/20 History Dicyclomine [Bentyl] 10 mg PO QID PRN 07/10/15 06/11/20 History Fish Oil/Dha/Epa [Fish Oil 1,200 1 cap PO DAILY 07/10/15 06/11/20 History mg Fish Oil] Nitroglycerin Sl Tabs [Nitrostat] 0.4 mg SUBLINGUAL Q5M PRN 07/10/15 06/11/20 History Spironolactone [Aldactone] 50 mg PO DAILY 07/10/15 06/11/20 History Atorvastatin [Lipitor] 80 mg PO HS 08/11/16 06/11/20 History Furosemide [Lasix] 80 mg PO DAILY 08/11/16 06/11/20 History Omeprazole 40 mg PO DAILY 08/11/16 06/11/20 History atenoloL [Tenormin] 25 mg PO DAILY 08/11/16 06/11/20 History Cholecalciferol [Vitamin D3 (25 5,000 unit PO DAILY 02/07/18 06/11/20 History Mcg = 1000 Iu)] Aspirin EC [Ecotrin Low Dose] 81 mg PO DAILY 06/11/20 06/11/20 History Ezetimibe [Zetia] 10 mg PO DAILY 06/11/20 06/11/20 History Levothyroxine Sodium [Synthroid] 88 mcg PO DAILY 06/11/20 06/11/20 History Loratadine [Claritin] 10 mg PO DAILY 06/11/20 06/11/20 History Melatonin 5 mg PO HS PRN 06/11/20 06/11/20 History Warfarin Sodium 6 mg PO MOTH 06/11/20 06/11/20 History Warfarin [Coumadin] 5 mg PO SUTUWEFRSA 06/11/20 06/11/20 History Allergies Allergy/AdvReac Type Severity Reaction Status Date / Time adhesive Allergy Rash/Hives Verified 06/11/20 22:06 aspirin Allergy Unknown Verified 06/11/20 22:06 Sulfa (Sulfonamide Allergy Rash/Hives Verified 06/11/20 22:06 Antibiotics) Physical Exam Vitals: Vital Signs Temp Pulse Pulse Resp BP BP Pulse Ox 06/12/20 01:00 97.7 F 64 18 103/53 96 06/11/20 22:53 97.7 F 64 18 103/56 96 06/11/20 22:00 60 18 100/58 98 06/11/20 21:27 60 06/11/20 20:54 98.1 F 61 16 105/64 97 Intake and Output 06/11/20 06/12/20 06/12/20 22:59 06:59 14:59 Intake Total 450 0 Balance 450 0 Intake: Oral 450 0 Other: Voiding Method Toilet # Voids 1 1 Weight 89.358 kg In general patient is alert and oriented 3 in no apparent distress HEENT head normocephalic and atraumatic Neck is supple no JVD no goiter no lymphadenopathy Chest exam reveals a few scattered rhonchi no wheezing Cardiac exam reveals regular heart sounds no gallops no murmurs Abdomen is soft nontender no organomegaly Extremity exam reveals no edema no cyanosis or clubbing Neurological examination reveals no gross focal deficit Results CBC & Chem 7: 06/11/20 21:12 06/11/20 21:12 Labs: Abnormal Lab Results - Last 24 Hours (Table) 06/11/20 06/11/20 06/11/20 Range/Units 21:12 21:12 21:12 WBC 10.9 H (3.8-10.6) k/uL PT 30.9 H (9.0-12.0) sec INR 3.2 H (<1.2) APTT 34.7 H (22.0-30.0) sec Sodium 128 L (137-145) mmol/L Chloride 94 L (98-107) mmol/L BUN 22 H (7-17) mg/dL Glucose 119 H (74-99) mg/dL AST 68 H (14-36) U/L ALT 43 H (4-34) U/L Total Protein 6.0 L (6.3-8.2) g/dL Assessment and Plan Plan: 1. Episode of chest pain in his 80-year-old female with multiple cardiac risk factors including known history of coronary artery disease, at this time patient is admitted to telemetry floor serial EKG and cardiac enzymes are ordered cardiology consultation is requested 2. Underlying history of hypertension 3. Underlying history of hyperlipidemia 4. Underlying history of paroxysmal atrial fibrillation 5. Underlying history of gastroesophageal reflux disease maintained on THIS 6. Underlying history of sick sinus syndrome was history of pacemaker placement Medications were reviewed and reordered Cardiology consult requested Will follow closely
[2020-06-12 16:57] VITALS: PULSE 72
--- NOTE | 2020-06-12 17:29 | P.DS ---
Providers Date of admission: 06/11/20 22:38 Expected date of discharge: 06/12/20 Attending physician: Olimpia Arce Consults: 06/11/20 22:37 Consult Physician Urgent Consulting Provider: Mookie Lock Consult Reason/Comments: cp Do you want consulting provider notified?: Yes Primary care physician: Yaritza Sutton Hospital Course: Diagnosis on discharge: 1. Episode of chest pain in his 80-year-old female with multiple cardiac risk factors including known history of coronary artery disease, at this time patient is admitted to telemetry floor serial EKG and cardiac enzymes are ordered cardiology consultation is requested 2. Underlying history of hypertension 3. Underlying history of hyperlipidemia 4. Underlying history of paroxysmal atrial fibrillation 5. Underlying history of gastroesophageal reflux disease maintained on THIS 6. Underlying history of sick sinus syndrome was history of pacemaker placement Hospital course: Gila Eduardo, is an 80-year-old female with known history of coronary artery disease with history of single vessel bypass graft surgery in 2003, history of hypertension, hyperlipidemia, sick sinus syndrome with pacemaker placement, and history of paroxysmal atrial fibrillation maintained on Coumadin, who presented to [facility] emergency room with a chief complaint of chest pain. Patient's primary care physician is Dr. Sutton, her global project manager is Dr. Forbes. Patient stated that on the day of admission she started having discomfort in her chest radiating to her neck and to her back, her symptoms persisted and she decided to call 911 and come to emergency room otherwise she denies any other symptoms there was no diaphoresis no nausea or vomiting and no shortness of breath. On 06/12/2020 patient was seen and examined on the telemetry floor she is alert and oriented 3 her chest pain has resolved EKG and 3 sets of cardiac enzymes were negative patient had a stress test recently at the cardiology office and it was negative patient was evaluated by cardiology and was cleared for discharge. Patient will be discharged home today she would follow up with her primary care physician within one week she will also follow-up with cardiology in 1-2 weeks Patient Condition at Discharge: Undetermined Plan - Discharge Summary Discharge Rx Participant: Yes New Discharge Prescriptions: Continue Nitroglycerin Sl Tabs [Nitrostat] 0.4 mg SUBLINGUAL Q5M PRN PRN Reason: Chest Pain Dicyclomine [Bentyl] 10 mg PO QID PRN PRN Reason: IBS ALPRAZolam [Xanax] 0.25 mg PO Q6H PRN PRN Reason: Anxiety Spironolactone [Aldactone] 50 mg PO DAILY Fish Oil/Dha/Epa [Fish Oil 1,200 mg Fish Oil] 1 cap PO DAILY Atorvastatin [Lipitor] 80 mg PO HS Furosemide [Lasix] 80 mg PO DAILY Omeprazole 40 mg PO DAILY atenoloL [Tenormin] 25 mg PO DAILY Cholecalciferol [Vitamin D3 (25 Mcg = 1000 Iu)] 5,000 unit PO DAILY Aspirin EC [Ecotrin Low Dose] 81 mg PO DAILY Ezetimibe [Zetia] 10 mg PO DAILY Levothyroxine Sodium [Synthroid] 88 mcg PO DAILY Loratadine [Claritin] 10 mg PO DAILY Melatonin 5 mg PO HS PRN PRN Reason: SLEEP Warfarin [Coumadin] 5 mg PO SUTUWEFRSA Warfarin Sodium 6 mg PO MOTH Discontinued Propafenone [Rythmol] 150 mg PO DAILY Discharge Medication List ALPRAZolam [Xanax] 0.25 mg PO Q6H PRN 07/10/15 [History] Dicyclomine [Bentyl] 10 mg PO QID PRN 07/10/15 [History] Fish Oil/Dha/Epa [Fish Oil 1,200 mg Fish Oil] 1 cap PO DAILY 07/10/15 [History] Nitroglycerin Sl Tabs [Nitrostat] 0.4 mg SUBLINGUAL Q5M PRN 07/10/15 [History] Spironolactone [Aldactone] 50 mg PO DAILY 07/10/15 [History] Atorvastatin [Lipitor] 80 mg PO HS 08/11/16 [History] Furosemide [Lasix] 80 mg PO DAILY 08/11/16 [History] Omeprazole 40 mg PO DAILY 08/11/16 [History] atenoloL [Tenormin] 25 mg PO DAILY 08/11/16 [History] Cholecalciferol [Vitamin D3 (25 Mcg = 1000 Iu)] 5,000 unit PO DAILY 02/07/18 [History] Aspirin EC [Ecotrin Low Dose] 81 mg PO DAILY 06/11/20 [History] Ezetimibe [Zetia] 10 mg PO DAILY 06/11/20 [History] Levothyroxine Sodium [Synthroid] 88 mcg PO DAILY 06/11/20 [History] Loratadine [Claritin] 10 mg PO DAILY 06/11/20 [History] Melatonin 5 mg PO HS PRN 06/11/20 [History] Warfarin Sodium 6 mg PO MOTH 06/11/20 [History] Warfarin [Coumadin] 5 mg PO SUTUWEFRSA 06/11/20 [History] Follow up Appointment(s)/Referral(s): Yaritza Sutton MD [Primary Care Provider] - 1-2 days Patient Instructions/Handouts: Chest Pain (ED)
[2020-06-12] MEDS ORDERED: WARFARIN 5 MG TAB PO SCH (18:00)
[2020-06-12] MEDS ORDERED: ATORVASTATIN 80 MG TAB PO SCH (21:00)
--- NOTE | 2020-06-13 11:45 | ECHOF ---
Referral Reason:cp, sob MEASUREMENTS -------- HEIGHT: 167.6 cm WEIGHT: 89.4 kg BP: 103/53 RVIDd: 3.5 cm (< 3.3) IVSd: 1.2 cm (0.6 - 1.1) LVIDd: 3.1 cm (3.9 - 5.3) LVPWd: 1.0 cm (0.6 - 1.1) IVSs: 1.9 cm LVIDs: 2.0 cm LVPWs: 1.7 cm LA Diam: 2.8 cm (2.7 - 3.8) LAESV Index (A-L): 19.60 ml/m Ao Diam: 3.2 cm (2.0 - 3.7) AV Cusp: 2.0 cm (1.5 - 2.6) MV EXCURSION: 11.844 mm (> 18.000) MV EF SLOPE: 52 mm/s (70 - 150) EPSS: 0.6 cm MV E Alfredo: 0.63 m/s MV DecT: 307 ms MV A Alfredo: 0.80 m/s MV E/A Ratio: 0.78 RAP: 5.00 mmHg RVSP: 26.20 mmHg FINDINGS -------- Paced rhythm. This was a technically good study. The left ventricular size is normal. There is borderline concentric left ventricular hypertrophy. Overall left ventricular systolic function is normal with, an EF between 60 - 65 %. The right ventricle is mildly enlarged. Normal LA size by volume 22+/-6 ml/m2. The right atrium is normal in size. Small inlet ventricular septal defect present. The aortic valve is trileaflet and appears structurally normal. The mitral valve is normal. Mild tricuspid regurgitation present. Right ventricular systolic pressure is normal at < 35 mmHg. Trace/mild (physiologic) pulmonic regurgitation. The aortic root size is normal. Normal inferior vena cava with normal inspiratory collapse consistent with estimated right atrial pre ssure of 5 mmHg. There is no pericardial effusion. CONCLUSIONS -------- 1. Paced rhythm. 2. The left ventricular size is normal. 3. There is borderline concentric left ventricular hypertrophy. 4. Overall left ventricular systolic function is normal with, an EF between 60 - 65 %. 5. The right ventricle is mildly enlarged. 6. Normal LA size by volume 22+/-6 ml/m2. 7. Small inlet ventricular septal defect present. 8. The aortic valve is trileaflet and appears structurally normal. 9. Mild tricuspid regurgitation present. 10. Trace/mild (physiologic) pulmonic regurgitation. 11. There is no pericardial effusion. DAYCARE MANAGER: Lilia Mendez RDCS
[2020-06-13] MEDS ORDERED: WARFARIN 3 MG TAB PO SCH (18:00)
== END 2020-06-12 17:50 ==
LOC: EC 20:52 → 3NCARDOBS 22:38
PROVIDERS: ADMIT Internal Medicine; ATTEND Internal Medicine
DX: R07.89 Other chest pain (principal); I25.10 Atherosclerotic heart disease of native coronary artery without angina pectoris; I11.0 Hypertensive heart disease with heart failure; E78.5 Hyperlipidemia, unspecified; I48.0 Paroxysmal atrial fibrillation; K21.9 Gastro-esophageal reflux disease without esophagitis; I49.5 Sick sinus syndrome; I50.9 Heart failure, unspecified; E07.9 Disorder of thyroid, unspecified; K58.9 Irritable bowel syndrome, unspecified; R06.02 Shortness of breath; R05 Cough; I44.0 Atrioventricular block, first degree; R94.31 Abnormal electrocardiogram [ECG] [EKG]; E87.1 Hypo-osmolality and hyponatremia; D72.829 Elevated white blood cell count, unspecified; I07.1 Rheumatic tricuspid insufficiency; Z95.1 Presence of aortocoronary bypass graft; Z79.01 Long term (current) use of anticoagulants; Z79.899 Other long term (current) drug therapy; Z79.82 Long term (current) use of aspirin; Z79.890 Hormone replacement therapy; Z91.09 Other allergy status, other than to drugs and biological substances; Z88.6 Allergy status to analgesic agent; Z88.2 Allergy status to sulfonamides; Z85.3 Personal history of malignant neoplasm of breast; Z87.19 Personal history of other diseases of the digestive system; Z98.890 Other specified postprocedural states; Z90.710 Acquired absence of both cervix and uterus; Z95.0 Presence of cardiac pacemaker; Z96.643 Presence of artificial hip joint, bilateral; Z82.49 Family history of ischemic heart disease and other diseases of the circulatory system
CPT/HCPCS: 93005 ×2; 99285; 36415; 93306; 83880; 80061; 80053; 83690; 83735; 84484 ×2; 85025; 85610; 85730; 71046; G0378 ×2

== ENCOUNTER 2020-09-23 15:44 | Observation (INO) | payer MEDICARE ==
[2020-09-23] MEDS ORDERED: SODIUM CHLORIDE 0.9% 500 ML 500 ML IV STA (16:20)
[2020-09-23] MEDS ORDERED: NITROGLYCERIN OINT 1 INCH/GM PACKET TOPICAL STA (16:20)
--- NOTE | 2020-09-23 16:26 | ED ---
General Adult HPI - General Chief complaint: Arrhythmia/Palpitations Stated complaint: Heart issues Time Seen by Provider: 09/23/20 15:50 Source: patient, RN notes reviewed, old records reviewed Mode of arrival: ambulatory Limitations: no limitations - History of Present Illness Initial comments: This is a 80-year-old female presents emergency Department with a history of atrial fibrillation and bypass surgery. Patient comes in today because she felt some pressure in the upper part of her chest and she was told she was in atrial fibrillation so she came in because the pressure did not go away per patient states the pressure started Wednesday morning. Patient denies any fever chills or cough the patient is a social COVID. Patient denies any shortness of breath or difficulty breathing. Patient denies any diaphoretic episodes. Patient denies any nausea vomiting. Patient denies any lightheadedness dizziness or near syncopal episode. Patient denies any abdominal pain patient denies nausea vomiting diarrhea. - Related Data Home Medications Medication Instructions Recorded Confirmed ALPRAZolam [Xanax] 0.25 mg PO Q6H PRN 07/10/15 06/11/20 Dicyclomine [Bentyl] 10 mg PO QID PRN 07/10/15 06/11/20 Fish Oil/Dha/Epa [Fish Oil 1,200 1 cap PO DAILY 07/10/15 06/11/20 mg Fish Oil] Nitroglycerin Sl Tabs [Nitrostat] 0.4 mg SUBLINGUAL Q5M PRN 07/10/15 06/11/20 Spironolactone [Aldactone] 50 mg PO DAILY 07/10/15 06/11/20 Atorvastatin [Lipitor] 80 mg PO HS 08/11/16 06/11/20 Furosemide [Lasix] 80 mg PO DAILY 08/11/16 06/11/20 Omeprazole 40 mg PO DAILY 08/11/16 06/11/20 atenoloL [Tenormin] 25 mg PO DAILY 08/11/16 06/11/20 Cholecalciferol [Vitamin D3 (25 5,000 unit PO DAILY 02/07/18 06/11/20 Mcg = 1000 Iu)] Aspirin EC [Ecotrin Low Dose] 81 mg PO DAILY 06/11/20 06/11/20 Ezetimibe [Zetia] 10 mg PO DAILY 08/11/20 08/11/20 Levothyroxine Sodium [Synthroid] 88 mcg PO DAILY 06/11/20 06/11/20 Loratadine [Claritin] 10 mg PO DAILY 06/11/20 06/11/20 Melatonin 5 mg PO HS PRN 06/11/20 06/11/20 Warfarin Sodium 6 mg PO MOTH 06/11/20 06/11/20 Warfarin [Coumadin] 5 mg PO [id number] 06/11/20 06/11/20 Allergies Allergy/AdvReac Type Severity Reaction Status Date / Time adhesive Allergy Rash/Hives Verified 09/23/20 17:57 aspirin Allergy Unknown Verified 09/23/20 17:57 Sulfa (Sulfonamide Allergy Rash/Hives Verified 09/23/20 17:57 Antibiotics) Review of Systems ROS Statement: Those systems with pertinent positive or pertinent negative responses have been documented in the HPI. ROS Other: All systems not noted in ROS Statement are negative. Past Medical History Past Medical History: Atrial Fibrillation, Cancer, Heart Failure, Hyperlipidemia, Thyroid Disorder Additional Past Medical History / Comment(s): BREAST CANCER with lymph removal on right side, IBS SEE DR DELEON'S H&P History of Any Multi-Drug Resistant Organisms: None Reported Past Surgical History: Coronary Bypass/CABG, Hernia Repair, Hysterectomy, Orthopedic Surgery, Pacemaker Additional Past Surgical History / Comment(s): RIGHT TOTAL HIP , LEFT TOTAL HIP Past Anesthesia/Blood Transfusion Reactions: No Reported Reaction Type of Cardiac Device: Unknown Device Placement Date:: 2015 Past Psychological History: No Psychological Hx Reported Smoking Status: Never smoker Past Alcohol Use History: Rare Past Drug Use History: None Reported - Past Family History Mother Family Medical History: Congestive Heart Failure (CHF) General Exam - General Exam Comments Initial Comments: GENERAL: Patient is well-developed and well-nourished. Patient is nontoxic and well- hydrated and is in no acute distress. ENT: Neck is soft and supple. No significant lymphadenopathy is noted. Oropharynx is clear. Moist mucous membranes. Neck has full range of motion without eliciting any pain. EYES: The sclera were anicteric and conjunctiva were pink and moist. Extraocular movements were intact and pupils were equal round and reactive to light. Eyelids were unremarkable. PULMONARY: Unlabored respirations. Good breath sounds bilaterally. No audible rales rhon chi or wheezing was noted. CARDIOVASCULAR: Irregular rate and rhythm. ABDOMEN: Soft and nontender with normal bowel sounds. SKIN: Skin is clear with no lesions or rashes and otherwise unremarkable. NEUROLOGIC: Patient is alert and oriented x3. Cranial nerves II through XII are grossly intact. Motor and sensory are also intact. Normal speech, volume and content. Symmetrical smile. MUSCULOSKELETAL: Normal extremities with adequate strength and full range of motion. LYMPHATICS: No significant lymphadenopathy is noted PSYCHIATRIC: Normal psychiatric evaluation. Limitations: no limitations Course Vital Signs 09/23/20 09/23/20 09/23/20 15:47 16:24 16:33 Temperature 97.6 F Pulse Rate 85 71 Pulse Rate [ 71 Client Associate ] Respiratory 18 18 Rate Blood Pressure 104/49 100/58 O2 Sat by Pulse 96 97 Oximetry 09/23/20 09/23/20 09/23/20 16:47 17:14 17:19 Temperature Pulse Rate 64 56 L 58 L Pulse Rate [ Client Associate ] Respiratory 18 18 Rate Blood Pressure 91/65 79/56 87/53 O2 Sat by Pulse 94 L 96 Oximetry 09/23/20 17:49 Temperature Pulse Rate Pulse Rate [ Client Associate ] Respiratory Rate Blood Pressure 88/56 O2 Sat by Pulse Oximetry Medical Decision Making - Medical Decision Making EKG shows atrial fibrillation at 70 bpm QRS is 98 QT interval 380 QTC is 419 per patient's EKG shows no ST segment elevation or evidence T-wave inversions in leads V1 and V2 V3 and V4 and does is seen on previous EKG Patient's blood pressure dipped after Nitropaste was placed and she was given a liter of fluid her pressure came up. Patient continued to have some chest pain. I did not start heparin because she was already on Coumadin and her INR was 4.5. Chest x-ray showed no acute abnormality. Patient will be admitted for unstable angina. I spoke with Dr. Arce he agreed to admit the patient admitted the patient I consult cardiology continued aspirin and Nitropaste on the floor. - Lab Data Result diagrams: 09/23/20 16:23 09/23/20 16: Lab Results 09/23/20 09/23/20 09/23/20 Range/Units 16: 16: 16: WBC 11.5 H (3.8-10.6) k/uL RBC 5.00 (3.80-5.40) m/uL Hgb 14.9 (11.4-16.0) gm/dL Hct 43.6 (34.0-46.0) % MCV 87.2 (80.0-100.0) fL MCH 29.8 (25.0-35.0) pg MCHC 34.1 (31.0-37.0) g/dL RDW 14.7 (11.5-15.5) % Plt Count 276 (150-450) k/uL MPV 7.9 Neutrophils % 57 % Lymphocytes % 32 % Monocytes % 6 % Eosinophils % 3 % Basophils % 1 % Neutrophils # 6.6 (1.3-7.7) k/uL Lymphocytes # 3.7 (1.0-4.8) k/uL Monocytes # 0.7 (0-1.0) k/uL Eosinophils # 0.3 (0-0.7) k/uL Basophils # 0.1 (0-0.2) k/uL PT 40.1 H (9.0-12.0) sec INR 4.1 H (<1.2) APTT 36.9 H (22.0-30.0) sec Sodium 136 L (137-145) mmol/L Potassium 4.1 (3.5-5.1) mmol/L Chloride 102 (98-107) mmol/L Carbon Dioxide 25 (22-30) mmol/L Anion Gap 9 mmol/L BUN 26 H (7-17) mg/dL Creatinine 1.25 H (0.52-1.04) mg/dL Est GFR (CKD-EPI)AfAm 48 (>60 ml/min/1.73 sqM) Est GFR (CKD-EPI)NonAf 41 (>60 ml/min/1.73 sqM) Glucose 107 H (74-99) mg/dL Calcium 9.3 (8.4-10.2) mg/dL Magnesium 2.0 (1.6-2.3) mg/dL Total Bilirubin 0.5 (0.2-1.3) mg/dL AST 27 (14-36) U/L ALT 24 (4-34) U/L Alkaline Phosphatase 90 (38-126) U/L Troponin I (0.000-0.034) ng/mL Total Protein 6.6 (6.3-8.2) g/dL Albumin 3.9 (3.5-5.0) g/dL 09/23/20 Range/Units 16:23 WBC (3.8-10.6) k/uL RBC (3.80-5.40) m/uL Hgb (11.4-16.0) gm/dL Hct (34.0-46.0) % MCV (80.0-100.0) fL MCH (25.0-35.0) pg MCHC (31.0-37.0) g/dL RDW (11.5-15.5) % Plt Count (150-450) k/uL MPV Neutrophils % % Lymphocytes % % Monocytes % % Eosinophils % % Basophils % % Neutrophils # (1.3-7.7) k/uL Lymphocytes # (1.0-4.8) k/uL Monocytes # (0-1.0) k/uL Eosinophils # (0-0.7) k/uL Basophils # (0-0.2) k/uL PT (9.0-12.0) sec INR (<1.2) APTT (22.0-30.0) sec Sodium (137-145) mmol/L Potassium (3.5-5.1) mmol/L Chloride (98-107) mmol/L Carbon Dioxide (22-30) mmol/L Anion Gap mmol/L BUN (7-17) mg/dL Creatinine (0.52-1.04) mg/dL Est GFR (CKD-EPI)AfAm (>60 ml/min/1.73 sqM) Est GFR (CKD-EPI)NonAf (>60 ml/min/1.73 sqM) Glucose (74-99) mg/dL Calcium (8.4-10.2) mg/dL Magnesium (1.6-2.3) mg/dL Total Bilirubin (0.2-1.3) mg/dL AST (14-36) U/L ALT (4-34) U/L Alkaline Phosphatase (38-126) U/L Troponin I <0.012 (0.000-0.034) ng/mL Total Protein (6.3-8.2) g/dL Albumin (3.5-5.0) g/dL Disposition Clinical Impression: Unstable angina Disposition: ADMITTED IP TO THIS HOSP Referrals: Yaritza Sutton MD [Primary Care Provider] - 1-2 days Time of Disposition: 18:00
[2020-09-23 16:33] LABS: Basophils # (A) 0.1 k/uL (0-0.2); Basophils % (A) 1 %; Eosinophils # (A) 0.3 k/uL (0-0.7); Eosinophils % (A) 3 %; HCT 43.6 % (34.0-46.0); HGB 14.9 gm/dL (11.4-16.0); Lymphocytes # (A) 3.7 k/uL (1.0-4.8); Lymphocytes % (A) 32 %; MCH 29.8 pg (25.0-35.0); MCHC 34.1 g/dL (31.0-37.0); MCV 87.2 fL (80.0-100.0); Mean Platelet Volume 7.9; Monocytes # (A) 0.7 k/uL (0-1.0); Monocytes % (A) 6 %; Neutrophils # (A) 6.6 k/uL (1.3-7.7); Neutrophils % (A) 57 %; Platelet Count 276 k/uL (150-450); RDW 14.7 % (11.5-15.5); WBC 11.5 k/uL (3.8-10.6)
[2020-09-23 16:42] LABS: INR 4.1 (<1.2); Partial Thromboplastin Time 36.9 sec (22.0-30.0); Prothrombin Time 40.1 sec (9.0-12.0)
[2020-09-23 16:43] LABS: Albumin 3.9 g/dL (3.5-5.0); Calcium 9.3 mg/dL (8.4-10.2); Potassium 4.1 mmol/L (3.5-5.1); Total Bilirubin 0.5 mg/dL (0.2-1.3); Total Protein 6.6 g/dL (6.3-8.2)
--- NOTE | 2020-09-23 16:59 | XR ---
EXAMINATION TYPE: XR chest 2V DATE OF EXAM: 09/23/2020 COMPARISON: 06/11/2020 HISTORY: Chest pain There is no heart failure nor confluent pneumonic infiltrate. Costophrenic angles are clear. Thoracic aorta is atheromatous. There is left axillary pacemaker. There are chest leads. IMPRESSION: No active cardiopulmonary disease. No change.
[2020-09-23] MEDS ORDERED: SODIUM CHLORIDE 0.9% 500 ML 500 ML IV ONE ×2 (17:20→18:39)
[2020-09-23] MEDS ORDERED: NITROGLYCERIN SL TABS 0.4 MG TAB SUBLINGUAL PRN ×2 (18:03→22:57)
[2020-09-23] MEDS ORDERED: MELATONIN 5 MG TABLET PO PRN (22:57)
[2020-09-23] MEDS ORDERED: ALPRAZolam 0.25 MG TAB PO PRN (22:57)
[2020-09-23] MEDS ORDERED: HYDROcodone/APAP 5-325MG 1 EACH TAB PO PRN (22:59)
[2020-09-24 05:27] VITALS: RESP 16
[2020-09-24] MEDS: DICYCLOMINE 20 MG TAB PO SCH ×3 (06:26→17:00)
[2020-09-24] MEDS ORDERED: LEVOTHYROXINE 88 MCG TAB PO SCH (06:30)
[2020-09-24] MEDS ORDERED: NON FORMULARY DRUG (Fish Oil/Dha/Epa [Fish Oil 1,200 Mg Fish Oil] 1 EACH Capsule) PO SCH (09:00)
[2020-09-24] MEDS ORDERED: SPIRONOLACTONE 25 MG TAB PO SCH (09:00)
[2020-09-24] MEDS ORDERED: PANTOPRAZOLE 40 MG TABLET PO SCH (09:00)
[2020-09-24] MEDS ORDERED: LORATADINE 10 MG TAB PO SCH (09:00)
[2020-09-24] MEDS ORDERED: FUROSEMIDE 80 MG TAB PO SCH (09:00)
[2020-09-24] MEDS ORDERED: ASPIRIN 81 MG PO SCH (09:00)
[2020-09-24] MEDS ORDERED: atenoloL 25 MG TAB PO SCH (09:00)
[2020-09-24] MEDS ORDERED: EZETIMIBE 10 MG TAB PO SCH (09:00)
[2020-09-24] MEDS ORDERED: ASPIRIN 325 MG TAB PO SCH (09:00)
[2020-09-24] MEDS ORDERED: CHOLECALCIFEROL 1,000 UNIT TAB PO SCH (09:00)
[2020-09-24] MEDS ORDERED: FAMOTIDINE 20 MG TAB PO SCH (09:00)
--- NOTE | 2020-09-24 09:31 | P.CRDCN ---
History of Present Illness Consult date: 09/24/20 Consult reason: atrial fibrillation Chief complaint: Chest pressure History of present illness: This is a pleasant 80-year-old female with documented history of paroxysmal atrial fibrillation, prior pacemaker implantation, hyperlipidemia, coronary artery disease with prior ESTRELLA to the LAD in 2012, who follows with Dr. Santo in the office. Patient presents to the hospital with symptoms of chest pressure. According to the patient, on Wednesday she noticed a heavy pressure sensation in her chest, similar symptoms on Wednesday, she has a monitor at home, she pushed the button, to send her rhythm over to the office. Subsequent to that the patient states that she spoke with [facility] and was informed that the patient was in atrial fibrillation with a rapid ventricular response. Because the symptoms of pressure persisted she came to the emergency room for further evaluation and treatment. She denies any associated shortness of breath, no diaphoresis, no nausea. Her EKG on presen tation here showed atrial fibrillation with ST depression noted in the anterior lateral leads. Her blood pressure 95/40 with a heart rate in the 70s, respirations 16. 95% on room air. White blood cell count 11.5, hemoglobin 14.9, hematocrit 43.6, platelet count 276. INR 4.1. Sodium 136, potassium 4.1, BUN 26, creatinine 1.2. Troponins were negative 3. [place] virus testing negative. Patient does state that she had a recent stress test and echocardiogram with Doppler study performed in the office, we will get copies of these. At the time of my examination this morning, patient denies any further pressure or discomfort in her chest, she denies any palpitations, no difficulty in breathing. Past Medical History Past Medical History: Atrial Fibrillation, Cancer, Hyperlipidemia, Thyroid Disorder Additional Past Medical History / Comment(s): BREAST CANCER with lymph removal on right side, IBS SEE DR SANTO'S H&P History of Any Multi-Drug Resistant Organisms: None Reported Past Surgical History: Coronary Bypass/CABG, Hernia Repair, Hysterectomy, Orthopedic Surgery, Pacemaker Additional Past Surgical History / Comment(s): RIGHT TOTAL HIP , LEFT TOTAL HIP Past Anesthesia/Blood Transfusion Reactions: No Reported Reaction Type of Cardiac Device: Unknown Device Placement Date:: 2015 Past Psychological History: No Psychological Hx Reported Smoking Status: Never smoker Past Alcohol Use History: Rare Past Drug Use History: None Reported - Past Family History Mother Family Medical History: Congestive Heart Failure (CHF) Medications and Allergies Home Medications Medication Instructions Recorded Confirmed Type ALPRAZolam [Xanax] 0.25 mg PO DAILY PRN 07/10/15 09/23/20 History Fish Oil/Dha/Epa [Fish Oil 1,200 1 cap PO DAILY 07/10/15 09/23/20 History mg Fish Oil] Nitroglycerin Sl Tabs [Nitrostat] 0.4 mg SUBLINGUAL Q5M PRN 07/10/15 09/23/20 History Spironolactone [Aldactone] 50 mg PO DAILY 07/10/15 09/23/20 History Atorvastatin [Lipitor] 80 mg PO HS 08/11/16 09/23/20 History Furosemide [Lasix] 80 mg PO DAILY 08/11/16 09/23/20 History Omeprazole 40 mg PO DAILY 08/11/16 09/23/20 History atenoloL [Tenormin] 25 mg PO DAILY 08/11/16 09/23/20 History Cholecalciferol [Vitamin D3 (25 5,000 unit PO DAILY 02/07/18 09/23/20 History Mcg = 1000 Iu)] Aspirin EC [Ecotrin Low Dose] 81 mg PO DAILY 06/11/20 09/23/20 History Ezetimibe [Zetia] 10 mg PO DAILY 06/11/20 09/23/20 History Levothyroxine Sodium [Synthroid] 88 mcg PO DAILY 06/11/20 09/23/20 History Loratadine [Claritin] 10 mg PO DAILY 06/11/20 09/23/20 History Melatonin 5 mg PO HS PRN 06/11/20 09/23/20 History Warfarin [Coumadin] 5 mg PO HS 06/11/20 09/23/20 History Cimetidine 200 mg PO BID 09/23/20 09/23/20 History Dicyclomine [Bentyl] 20 mg PO ACHS 09/23/20 09/23/20 History Allergies Allergy/AdvReac Type Severity Reaction Status Date / Time adhesive Allergy Rash/Hives Verified 09/23/20 17:57 aspirin Allergy Unknown Verified 09/23/20 17:57 Sulfa (Sulfonamide Allergy Rash/Hives Verified 09/23/20 17:57 Antibiotics) Physical Exam Vitals: Vital Signs Temp Pulse Pulse Pulse Resp BP BP 09/24/20 09:00 98 F 74 16 95/53 09/24/20 03:00 97.6 F 74 16 95/47 09/23/20 21:00 97.6 F 71 15 97/59 09/23/20 19:50 97.6 F 70 18 97/55 09/23/20 19:27 70 97/55 09/23/20 19:01 67 18 91/51 09/23/20 18:42 68 18 91/68 09/23/20 18:30 62 18 94/66 09/23/20 18:14 56 L 18 102/60 09/23/20 17:49 88/56 09/23/20 17:19 58 L 87/53 09/23/20 17:14 56 L 18 79/56 09/23/20 16:47 64 18 91/65 09/23/20 16:33 71 09/23/20 16:24 71 18 100/58 09/23/20 15:47 97.6 F 85 18 104/49 Pulse Ox 09/24/20 09:00 98 09/24/20 03:00 95 09/23/20 21:00 97 09/23/20 19:50 98 09/23/20 19:27 09/23/20 19:01 98 09/23/20 18:42 97 09/23/20 18:30 98 09/23/20 18:14 99 09/23/20 17:49 09/23/20 17:19 09/23/20 17:14 96 09/23/20 16:47 94 L 09/23/20 16:33 09/23/20 16:24 97 09/23/20 15:47 96 Intake and Output 09/23/20 09/24/20 09/24/20 22:59 06:59 14:59 Intake Total 360 Balance 360 Intake: Oral 360 Other: Voiding Method Toilet Toilet # Voids 1 2 1 Weight 87.997 kg PHYSICAL EXAMINATION: GENERAL: 89-year-old female in no acute distress at the time of my examination HEENT: Head is atraumatic, normocephalic. Pupils equal, round. Sclera anicteric. Conjunctiva are clear. Mucous membranes of the mouth are moist. Neck is supple. There is no elevated jugular venous pressure. No carotid bruit is heard. HEART EXAMINATION: S1 and S2 irregularly irregular a systolic murmur is heard CHEST EXAMINATION: Lungs are clear to auscultation and precussion. No chest wall tenderness is noted on palpation or with deep breathing. ABDOMEN: Soft, nontender. Bowel sounds are heard. No organomegaly noted. EXTREMITIES: 2+ peripheral pulses with no evidence of peripheral edema and no calf tenderness noted. NEUROLOGIC patient is awake, alert and oriented 3 . Results 09/23/20 16:23 09/23/20 16:23 Cardiac Enzymes 09/23/20 09/23/20 09/23/20 Range/Units 16: 16: 18:56 AST 27 (14-36) U/L Troponin I <0.012 <0.012 (0.000-0.034) ng/mL 09/23/20 Range/Units 20:31 AST (14-36) U/L Troponin I <0.012 (0.000-0.034) ng/mL Coagulation 09/23/20 Range/Units 16:23 PT 40.1 H (9.0-12.0) sec APTT 36.9 H (22.0-30.0) sec CBC 09/23/20 Range/Units 16:23 WBC 11.5 H (3.8-10.6) k/uL RBC 5.00 (3.80-5.40) m/uL Hgb 14.9 (11.4-16.0) gm/dL Hct 43.6 (34.0-46.0) % Plt Count 276 (150-450) k/uL Comprehensive Metabolic Panel 09/23/20 Range/Units 16:23 Sodium 136 L (137-145) mmol/L Potassium 4.1 (3.5-5.1) mmol/L Chloride 102 (98-107) mmol/L Carbon Dioxide 25 (22-30) mmol/L BUN 26 H (7-17) mg/dL Creatinine 1.25 H (0.52-1.04) mg/dL Glucose 107 H (74-99) mg/dL Calcium 9.3 (8.4-10.2) mg/dL AST 27 (14-36) U/L ALT 24 (4-34) U/L Alkaline Phosphatase 90 (38-126) U/L Total Protein 6.6 (6.3-8.2) g/dL Albumin 3.9 (3.5-5.0) g/dL Current Medications Generic Name Dose Route Start Last Admin Trade Name Freq PRN Reason Stop Dose Admin Hydrocodone Bitart/Acetaminophen 1 each 09/23/20 22:59 Hydrocodone/Apap 5-325mg 1 Each Tab PO Q6HR PRN Pain Alprazolam 0.25 mg 09/23/20 22:57 Alprazolam 0.25 Mg Tab PO DAILY PRN Anxiety Aspirin 81 mg 09/24/20 09:00 Aspirin 81 Mg PO DAILY [facility] Atenolol 25 mg 09/24/20 09:00 Atenolol 25 Mg Tab PO DAILY [facility] Atorvastatin Calcium 80 mg 09/24/20 21:00 Atorvastatin 80 Mg Tab PO HS [facility] Cholecalciferol 5,000 unit 09/24/20 09:00 Cholecalciferol 1,000 Unit Tab PO DAILY [facility] Dicyclomine HCl 20 mg 09/24/20 07:30 09/24/20 06:26 Dicyclomine 20 Mg Tab PO 20 mg ACHS [facility] Administration Ezetimibe 10 mg 09/24/20 09:00 Ezetimibe 10 Mg Tab PO DAILY [facility] Furosemide 80 mg 09/24/20 09:00 Furosemide 80 Mg Tab PO DAILY [facility] Levothyroxine Sodium 88 mcg 09/24/20 06:30 09/24/20 06:26 Levothyroxine 88 Mcg Tab PO 88 mcg DAILY@0630 [facility] Administration Loratadine 10 mg 09/24/20 09:00 Loratadine 10 Mg Tab PO DAILY [facility] Melatonin 5 mg 09/23/20 22:57 09/24/20 00:01 Melatonin 5 Mg Tablet PO 5 mg HS PRN Administration SLEEP Miscellaneous Information 1 each 09/24/20 06:18 Warfarin Per Pharmacy MISCELLANE DIRECTED PRN Per Protocol Nitroglycerin 0.4 mg 09/23/20 18:03 Nitroglycerin Sl Tabs 0.4 Mg Tab SUBLINGUAL Q5M PRN Chest Pain Nitroglycerin 0.4 mg 09/23/20 22:57 Nitroglycerin Sl Tabs 0.4 Mg Tab SUBLINGUAL Q5M PRN Chest Pain Pantoprazole Sodium 40 mg 09/24/20 09:00 Pantoprazole 40 Mg Tablet PO DAILY [facility] Spironolactone 50 mg 09/24/20 09:00 Spironolactone 25 Mg Tab PO DAILY [facility] Intake and Output 09/23/20 09/24/20 09/24/20 22:59 06:59 14:59 Intake Total 360 Balance 360 Intake: Oral 360 Other: Voiding Method Toilet Toilet # Voids 1 2 1 Weight 87.997 kg 09/23/20 16:23 09/23/20 16:23 EKG Interpretations (text) EKG shows atrial fibrillation with anterior lateral ST depression noted. Assessment and Plan Plan: Assessment and plan #1 chest pressure, likely secondary to atrial fibrillation with rapid ventricular response. Troponins were negative 3. EKG showed atrial fibrillation with ST depression noted in the anterior lateral leads. #2 history of paroxysmal atrial fibrillation, on Coumadin for anticoagulation #3 prior pacemaker implantation #4 coronary artery disease with prior ESTRELLA to the LAD #5 hyperlipidemia Plan Patient had a recent echocardiogram with Doppler study and stress test performed in the office, we will get a copy of those. Her INR on admission is 4.1, we wi ll adjust her Coumadin dose, continue Tenormin 25 mg daily, Lipitor 80 mg daily, Wednesday, decrease her Lasix to 40 mg daily, discontinue the Nitropaste. Check a thyroid level. Further recommendations to follow. DNP note has been reviewed, I agree with a documented findings and plan of care. Patient was seen and examined.
[2020-09-24 12:50] LABS: Cholesterol 122 mg/dL (<200); HDL Cholesterol 56 mg/dL (40-60); LDL Cholesterol,Calculated 46 mg/dL (0-99); Triglycerides 99 mg/dL (<150)
--- NOTE | 2020-09-24 12:51 | P.HPIM ---
History of Present Illness H&P Date: 09/24/20 Chief Complaint: Chest pain and atrial fibrillation Gila Eduardo is a 80-year-old female patient of Dr. Sutton, who presented to [facility] emergency room with a chief complaint of chest pressure patient started having symptoms on Wednesday she has a monitor at home and she sent the information to her cardiology office she spoke with the living specialist and was told that she was in atrial fibrillation with rapid ventricular response patient continued to have episodes of chest pressure and on Wednesday she decided to come to emergency room. Patient was evaluated in emergency room her vital exam on presentation reveals a temperature of 97.6 pulse 85 respiration 18 blood pressure 104/49 pulse ox 96% on room air her white blood count was slightly elevated at 11.5 INR was elevated at 4.1 BUN was slightly elevated at 26 with a creatinine of 1.25 troponin level was normal at less than 0.012 EKG was done in the emergency room and revealed atrial fibrillation with a heart rate of 70 and incomplete right bundle branch block and ST and T-wave abnormality suggestive of possible anterior ischemia chest x-ray did not reveal any active cardiopulmonary disease. Patient was admitted to observation unit with telemetry cardiology consultation was requested. Past medical history is significant for history of coronary artery disease with coronary artery bypass graft surgery in 2013 history of hypertension, history of hyperlipidemia, history of paroxysmal atrial fibrillation, and history of sick sinus syndrome with history of pacemaker placement. Patient also has a history of breast cancer, and history of hypothyroidism maintained on Synthroid. On review of systems patient patient was complaining of episodes of chest pressure otherwise she denies any complaints there is no fever or chills no headache or dizziness no shortness of breath no cough no palpitation no nausea or vomiting no abdominal pain no diarrhea no blood in the stool no burning with urination no frequency or urgency and no hematuria there was no weakness or numbness in any of the extremities no change in vision speech or gait. Past Medical History Past Medical History: Atrial Fibrillation, Cancer, Hyperlipidemia, Thyroid Disorder Additional Past Medical History / Comment(s): BREAST CANCER with lymph removal on right side, IBS SEE DR DELEON'S H&P History of Any Multi-Drug Resistant Organisms: None Reported Past Surgical History: Coronary Bypass/CABG, Hernia Repair, Hysterectomy, Orthopedic Surgery, Pacemaker Additional Past Surgical History / Comment(s): RIGHT TOTAL HIP , LEFT TOTAL HIP Past Anesthesia/Blood Transfusion Reactions: No Reported Reaction Type of Cardiac Device: Unknown Device Placement Date:: 2015 Past Psychological History: No Psychological Hx Reported Smoking Status: Never smoker Past Alcohol Use History: Rare Past Drug Use History: None Reported - Past Family History Mother Family Medical History: Congestive Heart Failure (CHF) Medications and Allergies Home Medications Medication Instructions Recorded Confirmed Type ALPRAZolam [Xanax] 0.25 mg PO DAILY PRN 07/10/15 09/23/20 History Fish Oil/Dha/Epa [Fish Oil 1,200 1 cap PO DAILY 07/10/15 09/23/20 History mg Fish Oil] Nitroglycerin Sl Tabs [Nitrostat] 0.4 mg SUBLINGUAL Q5M PRN 07/10/15 09/23/20 History Spironolactone [Aldactone] 50 mg PO DAILY 07/10/15 09/23/20 History Atorvastatin [Lipitor] 80 mg PO HS 08/11/16 09/23/20 History Furosemide [Lasix] 80 mg PO DAILY 08/11/16 09/23/20 History Omeprazole 40 mg PO DAILY 08/11/16 09/23/20 History atenoloL [Tenormin] 25 mg PO DAILY 08/11/16 09/23/20 History Cholecalciferol [Vitamin D3 (25 5,000 unit PO DAILY 02/07/18 09/23/20 History Mcg = 1000 Iu)] Aspirin EC [Ecotrin Low Dose] 81 mg PO DAILY 06/11/20 09/23/20 History Ezetimibe [Zetia] 10 mg PO DAILY 06/11/20 09/23/20 History Levothyroxine Sodium [Synthroid] 88 mcg PO DAILY 06/11/20 09/23/20 History Loratadine [Claritin] 10 mg PO DAILY 06/11/20 09/23/20 History Melatonin 5 mg PO HS PRN 06/11/20 09/23/20 History Warfarin [Coumadin] 5 mg PO HS 06/11/20 09/23/20 History Cimetidine 200 mg PO BID 09/23/20 09/23/20 History Dicyclomine [Bentyl] 20 mg PO ACHS 09/23/20 09/23/20 History Allergies Allergy/AdvReac Type Severity Reaction Status Date / Time adhesive Allergy Rash/Hives Verified 09/23/20 17:57 aspirin Allergy Unknown Verified 09/23/20 17:57 Sulfa (Sulfonamide Allergy Rash/Hives Verified 09/23/20 17:57 Antibiotics) Physical Exam Vitals: Vital Signs Temp Pulse Pulse Pulse Resp BP BP 09/24/20 09:00 98 F 74 16 95/53 09/24/20 03:00 97.6 F 74 16 95/47 09/23/20 21:00 97.6 F 71 15 97/59 09/23/20 19:50 97.6 F 70 18 97/55 09/23/20 19:27 70 97/55 09/23/20 19:01 67 18 91/51 09/23/20 18:42 68 18 91/68 09/23/20 18:30 62 18 94/66 09/23/20 18:14 56 L 18 102/60 09/23/20 17:49 88/56 09/23/20 17:19 58 L 87/53 09/23/20 17:14 56 L 18 79/56 09/23/20 16:47 64 18 91/65 09/23/20 16:33 71 09/23/20 16:24 71 18 100/58 09/23/20 15:47 97.6 F 85 18 104/49 Pulse Ox 09/24/20 09:00 98 09/24/20 03:00 95 09/23/20 21:00 97 09/23/20 19:50 98 09/23/20 19:27 09/23/20 19:01 98 09/23/20 18:42 97 09/23/20 18:30 98 09/23/20 18:14 99 09/23/20 17:49 09/23/20 17:19 09/23/20 17:14 96 09/23/20 16:47 94 L 09/23/20 16:33 09/23/20 16:24 97 09/23/20 15:47 96 Intake and Output 09/23/20 09/24/20 09/24/20 22:59 06:59 14:59 Intake Total 360 Balance 360 Intake: Oral 360 Other: Voiding Method Toilet Toilet Toilet # Voids 1 2 1 Weight 87.997 kg On physical exam patient is alert and oriented 3 in no distress HEENT head normocephalic and atraumatic Neck is supple no JVD no goiter no lymphadenopathy Chest exam reveals a few scattered rhonchi no wheezing Cardiac exam reveals regular heart sounds S1 and S2 no gallops no murmurs Abdomen is soft nontender no organomegaly with normal bowel sounds Extremity exam reveals mild lower extremity edema no cyanosis or clubbing Neurological examination reveals no gross focal deficit Results CBC & Chem 7: 09/23/20 16:23 09/23/20 16:23 Labs: Abnormal Lab Results - Last 24 Hours (Table) 09/23/20 09/23/20 09/23/20 Range/Units 16:23 16:23 16:23 WBC 11.5 H (3.8-10.6) k/uL PT 40.1 H (9.0-12.0) sec INR 4.1 H (<1.2) APTT 36.9 H (22.0-30.0) sec Sodium 136 L (137-145) mmol/L BUN 26 H (7-17) mg/dL Creatinine 1.25 H (0.52-1.04) mg/dL Glucose 107 H (74-99) mg/dL Thrombosis Risk Factor Assmnt - Choose All That Apply Each Factor Represents 1 point: Obesity (BMI >25) Each Risk Factor Represents 3 Points: Age 75 years or older Thrombosis Risk Factor Assessment Total Risk Factor Score: 4 Thrombosis Risk Factor Assessment Level: Moderate Risk Assessment and Plan Plan: 1. Episodes of chest pressure 2. Atrial fibrillation with rapid ventricular response prior to presentation, in the ER patient had atrial fibrillation with normal heart rate 3. Underlying history of coronary artery disease with history of coronary artery bypass graft surgery 4. Underlying history of hypertension 5. Underlying history of hypothyroidism maintained on Synthroid 6. Underlying history of hyperlipidemia 7. Underlying history of breast cancer 8. Underlying history of sick sinus syndrome with previous history of pacemaker placement At this time patient is admitted to observation unit with telemetry Cardiology consultation was requested Patient had recent cardiac workup at the cardiology office including a stress test Will follow closely
[2020-09-24 12:52] LABS: Prothrombin Time 29.2 sec (9.0-12.0)
[2020-09-24 15:30] VITALS: BP 100/68; PULSE 68; TEMP 97.7
[2020-09-24] MEDS ORDERED: WARFARIN 2.5 MG TAB PO ONE (18:00)
[2020-09-24] MEDS ORDERED: ATORVASTATIN 80 MG TAB PO SCH (21:00)
[2020-09-24] MEDS ORDERED: WARFARIN 1 MG TAB PO SCH (21:00)
[2020-09-25] MEDS ORDERED: FUROSEMIDE 40 MG TAB PO SCH (09:00)
--- NOTE | 2020-09-30 10:52 | P.DS ---
Providers Date of admission: 09/23/20 18:03 Expected date of discharge: 09/25/20 Attending physician: Olimpia Arce Consults: 09/23/20 18:03 Consult Physician Urgent Consulting Provider: [facility] Consult Reason/Comments: Unstable angina Do you want consulting provider notified?: Yes Primary care physician: Yaritza Sutton Hospital Course: Discharge Diagnosis 1. Episodes of chest pressure 2. Atrial fibrillation with rapid ventricular response prior to presentation, in the ER patient had atrial fibrillation with normal heart rate 3. Underlying history of coronary artery disease with history of coronary artery bypass graft surgery 4. Underlying history of hypertension 5. Underlying history of hypothyroidism maintained on Synthroid 6. Underlying history of hyperlipidemia 7. Underlying history of breast cancer 8. Underlying history of sick sinus syndrome with previous history of pacemaker placement Hospital Course Gila Eduardo is a 80-year-old female patient of Dr. Sutton, who presented to [facility] emergency room with a chief complaint of chest pressure patient started having symptoms on Wednesday she has a monitor at home and she sent the information to her cardiology office she spoke with the tanbark laborer and was told that she was in atrial fibrillation with rapid ventricular response patient continued to have episodes of chest pressure and on Wednesday she decided to come to emergency room. Patient was evaluated in emergency room her vital exam on presentation reveals a temperature of 97.6 pulse 85 respiration 18 blood pressure 104/49 pulse ox 96% on room air her white blood count was slightly elevated at 11.5 INR was elevated at 4.1 BUN was slightly elevated at 26 with a creatinine of 1.25 troponin level was normal at less than 0.012 EKG was done in the emergency room and revealed atrial fibrillation with a heart rate of 70 and incomplete right bundle branch block and ST and T-wave abnormality suggestive of possible anterior ischemia chest x-ray did not reveal any active cardiopulmonary disease. Patient was admitted to observation unit with telemetry cardiology consultation was requested. Past medical history is significant for history of coronary artery disease with coronary artery bypass graft surgery in 2013 history of hypertension, history of hyperlipidemia, history of paroxysmal atrial fibrillation, and history of sick sinus syndrome with history of pacemaker placement. Patient also has a history of breast cancer, and history of hypothyroidism maintained on Synthroid. On review of systems patient patient was complaining of episodes of chest pressure otherwise she denies any complaints there is no fever or chills no headache or dizziness no shortness of breath no cough no palpitation no nausea or vomiting no abdominal pain no diarrhea no blood in the stool no burning with urination no frequency or urgency and no hematuria there was no weakness or numbness in any of the extremities no change in vision speech or gait. patient evaluated by cardiology services. recent stress test and 2decho in office. Patient started on lasix upon discharge Plan - Discharge Summary Discharge Rx Participant: No New Discharge Prescriptions: New Furosemide [Lasix] 40 mg PO DAILY tab Continue Nitroglycerin Sl Tabs [Nitrostat] 0.4 mg SUBLINGUAL Q5M PRN PRN Reason: Chest Pain ALPRAZolam [Xanax] 0.25 mg PO DAILY PRN PRN Reason: Anxiety Spironolactone [Aldactone] 50 mg PO DAILY Fish Oil/Dha/Epa [Fish Oil 1,200 mg Fish Oil] 1 cap PO DAILY Atorvastatin [Lipitor] 80 mg PO HS Omeprazole 40 mg PO DAILY atenoloL [Tenormin] 25 mg PO DAILY Cholecalciferol [Vitamin D3 (25 Mcg = 1000 Iu)] 5,000 unit PO DAILY Aspirin EC [Ecotrin Low Dose] 81 mg PO DAILY Ezetimibe [Zetia] 10 mg PO DAILY Levothyroxine Sodium [Synthroid] 88 mcg PO DAILY Loratadine [Claritin] 10 mg PO DAILY Melatonin 5 mg PO HS PRN PRN Reason: SLEEP Warfarin [Coumadin] 5 mg PO HS Dicyclomine [Bentyl] 20 mg PO ACHS Cimetidine 200 mg PO BID Discontinued Furosemide [Lasix] 80 mg PO DAILY Discharge Medication List ALPRAZolam [Xanax] 0.25 mg PO DAILY PRN 07/10/15 [History] Fish Oil/Dha/Epa [Fish Oil 1,200 mg Fish Oil] 1 cap PO DAILY 07/10/15 [History] Nitroglycerin Sl Tabs [Nitrostat] 0.4 mg SUBLINGUAL Q5M PRN 07/10/15 [History] Spironolactone [Aldactone] 50 mg PO DAILY 07/10/15 [History] Atorvastatin [Lipitor] 80 mg PO HS 08/11/16 [History] Omeprazole 40 mg PO DAILY 08/11/16 [History] atenoloL [Tenormin] 25 mg PO DAILY 08/11/16 [History] Cholecalciferol [Vitamin D3 (25 Mcg = 1000 Iu)] 5,000 unit PO DAILY 02/07/18 [History] Aspirin EC [Ecotrin Low Dose] 81 mg PO DAILY 06/11/20 [History] Ezetimibe [Zetia] 10 mg PO DAILY 06/11/20 [History] Levothyroxine Sodium [Synthroid] 88 mcg PO DAILY 06/11/20 [History] Loratadine [Claritin] 10 mg PO DAILY 06/11/20 [History] Melatonin 5 mg PO HS PRN 06/11/20 [History] Warfarin [Coumadin] 5 mg PO HS 06/11/20 [History] Cimetidine 200 mg PO BID 09/23/20 [History] Dicyclomine [Bentyl] 20 mg PO ACHS 09/23/20 [History] Furosemide [Lasix] 40 mg PO DAILY tab 09/24/20 [Rx] Follow up Appointment(s)/Referral(s): Yaritza Sutton MD [Primary Care Provider] - 1-2 days (Office is currently closed, please call the office Wednesday am to schedule your appointment.) Patient Instructions/Handouts: A-fib (Atrial Fibrillation) (DC), Chest Pain (DC) Discharge Disposition: HOME SELF-CARE
== END 2020-09-24 19:27 | disposition home or self-care (01) ==
LOC: EC 15:44 → 1SOBS 18:03
PROVIDERS: ADMIT Internal Medicine; ATTEND Internal Medicine
DX: I48.0 Paroxysmal atrial fibrillation (principal); I25.110 Atherosclerotic heart disease of native coronary artery with unstable angina pectoris; I10 Essential (primary) hypertension; Z95.5 Presence of coronary angioplasty implant and graft; I45.10 Unspecified right bundle-branch block; Z20.828 Contact with and (suspected) exposure to other viral communicable diseases; E03.9 Hypothyroidism, unspecified; E78.5 Hyperlipidemia, unspecified; Z85.3 Personal history of malignant neoplasm of breast; R79.1 Abnormal coagulation profile; I49.5 Sick sinus syndrome; Z95.1 Presence of aortocoronary bypass graft; Z95.0 Presence of cardiac pacemaker; Z90.710 Acquired absence of both cervix and uterus; Z98.890 Other specified postprocedural states; K58.9 Irritable bowel syndrome, unspecified; Z79.890 Hormone replacement therapy; Z79.01 Long term (current) use of anticoagulants; Z79.82 Long term (current) use of aspirin; Z79.899 Other long term (current) drug therapy
CPT/HCPCS: 93005 ×2; 96360; 96361; 99285; 36415; 80061; 80053; 84443; 83735; 84484; 85025; 85610 ×2; 85730; 87635; 71046; G0378 ×2

== ENCOUNTER → 2020-10-10 | Outpatient (CLI) | payer MEDICARE ==
--- NOTE | 2020-10-10 15:49 | CT ---
EXAMINATION TYPE: CT chest wo con DATE OF EXAM: 10/10/2020 COMPARISON: Chest x-ray September 23, 2020 and older x-rays HISTORY: Dyspnea. CT DLP: 321.9 mGycm. Automated Exposure Control for Dose Reduction was Utilized. TECHNIQUE: CT scan of the thorax is performed without IV contrast. FINDINGS: LUNGS: The lungs are grossly clear, there is no concerning parenchymal mass or nodule identified. T here is no pleural effusion or pneumothorax seen. The tracheobronchial tree is patent. MEDIASTINUM: Lack of IV contrast is noted to limit evaluation for mediastinal and especially hilar ad enopathy. There are no definitive greater than 1 cm hilar or mediastinal lymph nodes. No cardiomega ly or pericardial effusion is seen. Dual-lead pacemaker is redemonstrated. Overlying sternal wires an d mediastinal clips are again seen. Ascending aorta measures up to 3.9 cm in diameter axial image 25 and sagittal image 54. Small sized thyroid gland. OTHER: S-shaped scoliosis. Focal moderate disc space narrowing and sclerosis in the T10-T11 level. Pl ease refer to same day CT abdomen report for complete details in the upper abdomen. 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 No significant acute or chronic pulmon josé process.
--- NOTE | 2020-10-10 15:54 | CT ---
EXAMINATION TYPE: CT abdomen w con DATE OF EXAM: 10/10/2020 HISTORY: Epigastric abdominal pain. CT DLP: 805.8mGycm Automated Exposure Control for Dose Reduction was Utilized. CONTRAST: CT scan of the abdomen is performed with oral and with IV Contrast, patient injected with 80ml mL of Isovue 300. COMPARISON: CT abdomen and pelvis October 14, 2012 FINDINGS: LUNG BASES: Please refer to same-day CT chest report for complete details about the lung bases. LIVER/GB: No significant abnormality is appreciated. PANCREAS: No significant abnormality is seen. SPLEEN: No significant abnormality is seen. ADRENALS: No significant abnormality is seen. KIDNEYS: No significant abnormality is seen. BOWEL: Oral contrast did not reach level of terminal ileum making evaluation of distal bowel suboptim al. No suspicious small or large bowel dilatation. Slightly more prominent 2.7 cm mesenteric surface duodenal diverticulum along second portion coronal image 50. Some diverticula seen in visualized port ion of the sigmoid colon. LYMPH NODES: No greater than 1cm abdominal lymph nodes are appreciated. OSSEOUS STRUCTURES: Localizer redemonstrates partial visualization of metallic hardware from bilatera l hip surgery. There is persistent levoconvex scoliosis centered at L2-L3 level. There is persistent moderate to severe disc space narrowing and spurring at the right L3-L4 and L4-L5 levels. There is fa cet arthropathy lower lumbar levels. OTHER: Moderate to severe calcified plaque of the mid to distal abdominal aorta extends into iliac br anch vessels. IMPRESSION: No bowel obstruction. No significant new or acute finding.
== END | disposition home or self-care (01) ==
LOC: RADCTMAIN 14:11
PROVIDERS: ATTEND Nurse Practitioner
DX: I71.2 Thoracic aortic aneurysm, without rupture (principal); R10.9 Unspecified abdominal pain; I48.91 Unspecified atrial fibrillation; E66.9 Obesity, unspecified; R05 Cough; R06.00 Dyspnea, unspecified; G47.33 Obstructive sleep apnea (adult) (pediatric); R10.13 Epigastric pain; Z88.2 Allergy status to sulfonamides; Z88.6 Allergy status to analgesic agent; Z91.048 Other nonmedicinal substance allergy status
CPT/HCPCS: 82565; 84520; 71250; 74160; 36415; Q9967

== ENCOUNTER → 2021-03-04 | Outpatient (CLI) | payer MEDICARE ==
--- NOTE | 2021-03-04 14:34 | MM ---
Reason for exam: clinical finding. Last mammogram was performed 11 months ago. History: Patient is postmenopausal, has history of breast cancer at age 60, and previous chest radiation therapy. Lumpectomy of the right breast. Chemotherapy. Radiation therapy of the right breast. Took estrogen for 2 years beginning at age 57. Took progesterone for 2 years beginning at age 57. Physical Findings: Nurse did not find any significant physical abnormalities on exam. MG 3D Diag Mammo W/Cad EDVIN Bilateral CC and MLO view(s) were taken. Prior study comparison: April 18, 2020, bilateral MG 3d diag mammo w/cad EDVIN. April 03, 2019, bilateral MG 3d diag mammo w/cad EDVIN. There are scattered fibroglandular densities. Post surgical changes right breast. Pacemaker left breast. No significant new findings when compared with previous films. These results were verbally communicated with the patient and result sheet given to the patient on 03/04/21. ASSESSMENT: Benign, BI-RAD 2 RECOMMENDATION: Follow-up diagnostic mammogram of both breasts in 1 year. Manage patient on a clinical basis.
== END | disposition home or self-care (01) ==
LOC: RADMAMWWP 13:03
PROVIDERS: ATTEND Family Medicine
DX: R92.8 Other abnormal and inconclusive findings on diagnostic imaging of breast (principal); Z85.3 Personal history of malignant neoplasm of breast; Z78.0 Asymptomatic menopausal state
CPT/HCPCS: 77066; G0279; 77062

== ENCOUNTER 2021-03-12 11:34 | Day surgery (SDC) | payer MEDICARE ==
[2021-03-10 10:52] VITALS: BMI 31.1
[~2021-03-12 11:34] MED LIST: ALPRAZolam 0.25 MG TAB PO PRN; ASPIRIN 325 MG TAB PO STA; HEPARIN SODIUM,PORCINE 10,000 UNIT in SODIUM CHLORIDE 0.9% 1,000 ML IRRIGATION PRN; HEPARIN SODIUM,PORCINE 2,500 UNIT in SODIUM CHLORIDE 0.9% 250 ML IRRIGATION PRN; NITROGLYCERIN SL TABS 0.4 MG TAB SUBLINGUAL PRN; SODIUM CHLORIDE 0.9% 1,000 ML in EMPTY BAG 1 BAG IV ONE
[2021-03-12] MEDS ORDERED: ASPIRIN 81 MG ONE (12:23)
[2021-03-12] MEDS ORDERED: VERAPAMIL 2.5 MG/ML 2 ML AMP ONE (12:37)
[2021-03-12] MEDS ORDERED: LIDOCAINE 1% INJ 10MG/ML (20 ML MDV) ONE (12:37)
[2021-03-12 13:03] LABS: INR 1.1 (<1.2); Prothrombin Time 11.8 sec (9.0-12.0)
[2021-03-12] MEDS ORDERED: MIDAZOLAM 2 MG/2 ML VIAL IV ONE ×2 (13:10→13:37)
[2021-03-12] MEDS ORDERED: LIDOCAINE 1% INJ 10MG/ML (20 ML MDV) SQ ONE (13:13)
[2021-03-12] MEDS ORDERED: HYDROmorphone 1 MG/ML 1 ML SYRINGE IVP ONE (13:30)
[2021-03-12] MEDS ORDERED: NITROGLYCERIN 1000MCG/10ML SYRINGE INTRAARTER ONE (13:34)
[2021-03-12] MEDS ORDERED: IOPAMIDOL-370 125ML BTL INJ ONE (13:39)
[2021-03-12] MEDS ORDERED: RX INFO: IV CONTRAST WAS GIVEN 1 EACH MISC MISCELLANE PRN (14:00)
[2021-03-12] MEDS ORDERED: SODIUM CHLORIDE 0.9% 1,000 ML IV SCH (14:00)
[2021-03-12 14:27] VITALS: RESP 16
--- NOTE | 2021-03-12 14:32 | CC ---
CARDIAC CATHETERIZATION REPORT DATE OF SERVICE: 03/12/2021 PERFORMING PHYSICIAN: Stepan Betancourt MD. PROCEDURE PERFORMED: 1. Selective right and left coronary angiogram. 2. ESTRELLA to LAD angiogram. 3. Left heart catheterization. INDICATION: This is a 81-year-old female patient who sees Dr. Santo in the office with history of coronary artery disease and prior single-vessel bypass with ESTRELLA to LAD, who was experiencing symptoms of paroxysmal atrial fibrillation. Dr. Santo had a concern about severe underlying coronary artery disease and because of that, a heart catheterization was advised. APPROACH: Right common femoral artery. COMPLICATION: None. LEVEL OF SEDATION: Moderate with sedation length of 30 minutes. PROCEDURE DESCRIPTION: After obtaining informed consent, the patient was brought to the cardiac laborer cutting tool. The right common femoral artery was cannulated using micropuncture technique and a micropuncture wire passed easily then I placed a 6-Maltese sheath at the right common femoral artery. Selective right and left coronary angiogram performed with JR4 and JL4 catheters. Subsequently I did do ESTRELLA to LAD angiogram using an IM catheter. After that left heart catheterization was performed using 5-Maltese pigtail catheter. The procedure was completed without any complication. SELECTIVE CORONARY ANGIOGRAM: 1. The left main is angiographically normal and it bifurcates into LCX and LAD. 2. The LCX is a large caliber vessel, it is a nondominant vessel. The LCX is angiographically normal. It gives rise into first and second obtuse marginal branches and both appeared to be angiographically normal. 3. The LAD: The LAD is a moderate caliber vessel. The LAD proximally has a lesion that appeared to be in the range of 50% to 60%. The LAD in the mid and distal portion becomes a medium caliber vessel without any obstructive disease. The LAD gives rise into a diagonal branch and appeared to be angiographically normal. 4. The RCA is a large caliber vessel. The RCA is angiographically normal. 5. The ESTRELLA to LAD is atrophic. HEMODYNAMICS: The LVEDP was about 10 to 12 mmHg without significant gradient across the aortic valve. CONCLUSION: 1. Intermediate to severe lesion involving the proximal LAD appeared to be in the range of 50% to 60%. The ESTRELLA to LAD is atrophic because the LAD has good flow in it. 2. Normal left circumflex coronary artery. 3. Normal left main coronary artery. 4. Normal right coronary artery. 5. Normal filling pressure. POSTPROCEDURE MANAGEMENT: 1. Consider medical treatment. 2. If the patient is symptomatic, she might benefit from possible FFR of the LAD with PCI if the FFR is ischemic. NOHEMY / SRIRAMN: [id number] /
[2021-03-12 21:07] VITALS: BP 99/65; PULSE 61; TEMP 97.7
== END 2021-03-12 20:20 | disposition home or self-care (01) ==
LOC: CATHCVL 11:34 → 6NMEDSUR 13:44 → CATHCVL 20:20
PROVIDERS: ATTEND Internal Medicine Interventional Cardiology
DX: I25.110 Atherosclerotic heart disease of native coronary artery with unstable angina pectoris (principal); Q24.5 Malformation of coronary vessels; I48.0 Paroxysmal atrial fibrillation; I10 Essential (primary) hypertension; E78.00 Pure hypercholesterolemia, unspecified; Z95.0 Presence of cardiac pacemaker; Z95.1 Presence of aortocoronary bypass graft; Z20.822 Contact with and (suspected) exposure to COVID-19; Z79.01 Long term (current) use of anticoagulants; E78.5 Hyperlipidemia, unspecified; Z82.49 Family history of ischemic heart disease and other diseases of the circulatory system; Z88.2 Allergy status to sulfonamides; Z79.82 Long term (current) use of aspirin; Z79.890 Hormone replacement therapy; Z79.899 Other long term (current) drug therapy
CPT/HCPCS: 93459; 85610; 87635; C1769 ×3; C1894; J2250; J2001; J1170; Q9967

== ENCOUNTER 2021-04-29 19:44 | Observation (INO) | payer MEDICARE ==
[2021-04-29] MEDS ORDERED: SODIUM CHLORIDE 0.9% 500 ML 500 ML IV STA (19:55)
--- NOTE | 2021-04-29 19:55 | ED ---
Chest Pain HPI - General Chief Complaint: Chest Pain Stated Complaint: Chest pain Time Seen by Provider: 04/29/21 19:54 Source: patient Mode of arrival: ambulatory Limitations: no limitations - History of Present Illness Initial Comments: Gila is a 81-year-old female who presents to the ER today for evaluation of chest pain. Patient has a history of coronary artery disease with a single Vessel CABG in the past. Patient had a recent cardiac cath uncertain of what her results were but states that she was told was nothing critical. Patient is currently not taking her Coumadin because she was supposed to have a colonoscopy on of this week. Patient states that around dinnertime tonight she developed tightness around her chest that she describes as being feeling like her bra was on too tight and then heaviness in the retrosternal area. She denies any significant shortness of breath. No recent illness no fevers chills nausea or vomiting. Patient took 2 nitro as well as some PPIs at home with no relief from pain and aside from the hospital for further evaluation. - Related Data Home Medications Medication Instructions Recorded Confirmed Fish Oil/Dha/Epa [Fish Oil 1,200 1 cap PO DAILY 07/10/15 04/29/21 mg Fish Oil] Nitroglycerin Sl Tabs [Nitrostat] 0.4 mg SUBLINGUAL Q5M PRN 07/10/15 04/29/21 Spironolactone [Aldactone] 25 mg PO BID 07/10/15 04/29/21 Atorvastatin [Lipitor] 80 mg PO HS 08/11/16 04/29/21 Omeprazole 40 mg PO BID 08/11/16 04/29/21 atenoloL [Tenormin] 25 mg PO QAM 08/11/16 04/29/21 Aspirin EC [Ecotrin Low Dose] 81 mg PO BID 06/11/20 04/29/21 Ezetimibe [Zetia] 10 mg PO HS 06/11/20 04/29/21 Levothyroxine Sodium [Synthroid] 88 mcg PO HS 06/11/20 04/29/21 Loratadine [Claritin] 10 mg PO HS 06/11/20 04/29/21 Cimetidine 200 mg PO AC-BID 09/23/20 04/29/21 Dicyclomine [Bentyl] 20 mg PO AC-BID 09/23/20 04/29/21 Calcium Carbonate [Calcium] 600 mg PO DAILY 03/10/21 04/29/21 Cholecalciferol [Vitamin D3 (25 50 mcg PO DAILY 03/10/21 04/29/21 Mcg = 1000 Iu)] Furosemide [Lasix] 40 mg PO BID 03/10/21 04/29/21 Multivitamins, Thera [Multivitamin 1 tab PO DAILY 03/10/21 04/29/21 (formulary)] Famotidine [Pepcid] 20 mg PO DAILY PRN 03/12/21 04/29/21 Melatonin 5 mg PO HS 04/29/21 04/29/21 Warfarin [Coumadin] 5 mg PO SUMOWETHSA 04/29/21 04/29/21 Warfarin [Coumadin] 6 mg PO TUFR 04/29/21 04/29/21 Allergies Allergy/AdvReac Type Severity Reaction Status Date / Time adhesive Allergy Rash/Hives Verified 04/29/21 19:48 aspirin Allergy Unknown Verified 04/29/21 19:48 Sulfa (Sulfonamide Allergy Rash/Hives Verified 04/29/21 19:48 Antibiotics) elastic bandage Allergy skin gets Uncoded 04/29/21 19:48 red and itchy Review of Systems ROS Statement: Those systems with pertinent positive or pertinent negative responses have been documented in the HPI. ROS Other: All systems not noted in ROS Statement are negative. EKG Findings - EKG Comments: EKG Findings:: EKG was obtained due to complaint of chest pain, EKG was obtained at 1954 rate is 66 rhythm is narrow complex irregularly irregular consistent with an atrial fibrillation there are no acute ST elevations or depressions no evidence of acute infarction. Past Medical History Past Medical History: Atrial Fibrillation, Cancer, Chest Pain / Angina, Hyperlipidemia, Thyroid Disorder Additional Past Medical History / Comment(s): BREAST CANCER with lymph removal on right side, IBS History of Any Multi-Drug Resistant Organisms: None Reported Past Surgical History: Coronary Bypass/CABG, Heart Catheterization, Hernia Repair, Hysterectomy, Orthopedic Surgery, Pacemaker Additional Past Surgical History / Comment(s): yanelis hip replacements, CABG 2003, yanelis cataracts Past Anesthesia/Blood Transfusion Reactions: Family History of Problems w/ Anesthesia Additional Past Anesthesia/Blood Transfusion Reaction / Comment(s): father got a red rash Type of Cardiac Device: Permanent Pacemaker Device Placement Date:: 2015 Past Psychological History: No Psychological Hx Reported Smoking Status: Never smoker - Past Family History Father Family Medical History: Cancer Mother Family Medical History: Blood Disorder Additional Family Medical History / Comment(s): "too thick or thin blood" General Exam - General Exam Comments Initial Comments: Physical Exam GENERAL: Patient is well-developed and well-nourished. Patient is nontoxic and well- hydrated and is in no distress. HENT: Normocephalic, Atraumatic. EYES: PERRL, EOMI PULMONARY: Unlabored respirations. No audible rales rhonchi or wheezing was noted. CARDIOVASCULAR: There is a regular rate and rhythm without any murmurs gallops or rubs. ABDOMEN: Soft and nontender with normal bowel sounds. SKIN: Skin is clear with no lesions or rashes and otherwise unremarkable. : Deferred NEUROLOGIC: Patient is alert and oriented x3. Moving all extremities spontaneously MUSCULOSKELETAL: Normal extremities with adequate strength and full range of motion. No lower extremity swelling or edema. No calf tenderness. PSYCHIATRIC: Normal psychiatric evaluation. Limitations: no limitations Course Vital Signs 04/29/21 19:45 Temperature 97.7 F Pulse Rate 65 Respiratory 18 Rate Blood Pressure 99/59 O2 Sat by Pulse 97 Oximetry Chest Pain MDM - Differential Diagnosis ACS - MDM Patient was seen and evaluated history was obtained from patient is an 81-year-old female with known coronary artery disease history of presenting today with pain in the chest, pressure-like in nature concerning for acute coronary syndrome Initial EKG is nonischemic, initial troponin is not elevated BNP is mildly elevated indicating some degree of heart failure Patient is currently subtherapeutic on her Coumadin therefore heparin was ordered Patient care was discussed with Dr. Arce who accepts the patient will be consult cardiology Disposition Clinical Impression: Unstable angina Disposition: ADMITTED IP TO THIS HOSP Condition: Stable Referrals: Yaritza Sutton MD [Primary Care Provider] - 1-2 days
[2021-04-29 20:10] LABS: Basophils # (A) 0.1 k/uL (0-0.2); Basophils % (A) 1 %; Eosinophils # (A) 0.3 k/uL (0-0.7); Eosinophils % (A) 3 %; HCT 40.1 % (34.0-46.0); HGB 13.4 gm/dL (11.4-16.0); Lymphocytes # (A) 3.7 k/uL (1.0-4.8); Lymphocytes % (A) 34 %; MCH 29.5 pg (25.0-35.0); MCHC 33.4 g/dL (31.0-37.0); MCV 88.5 fL (80.0-100.0); Mean Platelet Volume 7.8; Monocytes # (A) 0.6 k/uL (0-1.0); Monocytes % (A) 6 %; Neutrophils # (A) 5.8 k/uL (1.3-7.7); Neutrophils % (A) 54 %; Platelet Count 231 k/uL (150-450); RBC 4.53 m/uL (3.80-5.40); RDW 14.6 % (11.5-15.5); WBC 10.7 k/uL (3.8-10.6)
[2021-04-29 20:20] LABS: Albumin 3.8 g/dL (3.5-5.0); Calcium 9.1 mg/dL (8.4-10.2); Magnesium 2.1 mg/dL (1.6-2.3); Total Bilirubin 0.4 mg/dL (0.2-1.3); Total Protein 6.3 g/dL (6.3-8.2)
[2021-04-29 20:26] LABS: INR 1.3 (<1.2); Partial Thromboplastin Time 25.7 sec (22.0-30.0); Prothrombin Time 12.9 sec (9.0-12.0)
--- NOTE | 2021-04-29 20:27 | XR ---
EXAMINATION TYPE: XR chest 2V DATE OF EXAM: 04/29/2021 COMPARISON: 09/23/2020. HISTORY: Chest pain. TECHNIQUE: Frontal and lateral views of the chest are obtained. FINDINGS: There is no focal air space opacity, pleural effusion, or pneumothorax seen. The cardiac silhouette size is within normal limits. Prior cardiothoracic postsurgical changes and right axillar y tan dissection noted. The osseous structures are intact. IMPRESSION: No acute cardiopulmonary process.
[2021-04-29] MEDS ORDERED: NITROGLYCERIN SL TABS 0.4 MG TAB SUBLINGUAL PRN (22:04)
[2021-04-29] MEDS ORDERED: HEPARIN SODIUM 1,000 UN/ML (10ML VL) IV PRN (22:12)
[2021-04-29] MEDS ORDERED: HEPARIN SODIUM 1,000 UN/ML (10ML VL) IV ONE (22:12)
[2021-04-29] MEDS ORDERED: WARFARIN 1 MG TAB PO SCH (22:15)
[2021-04-29] MEDS ORDERED: HEPARIN SOD,PORK IN 0.45% NACL 25,000 UNIT in 0.45% NACL 1 250ML.BAG IV SCH (22:15)
[2021-04-29] MEDS ORDERED: FAMOTIDINE 20 MG TAB PO PRN (22:38)
[2021-04-29] MEDS ORDERED: ACETAMINOPHEN TAB 500 MG TAB PO STA (22:39)
[2021-04-29] MEDS ORDERED: MELATONIN 5 MG TABLET PO SCH (22:45)
[2021-04-29] MEDS ORDERED: ATORVASTATIN 80 MG TAB PO SCH (22:45)
[2021-04-29] MEDS ORDERED: LEVOTHYROXINE 88 MCG TAB PO SCH (22:45)
[2021-04-29] MEDS: FUROSEMIDE 40 MG TAB PO SCH (22:57)
[2021-04-29] MEDS ORDERED: EZETIMIBE 10 MG TAB PO SCH (23:00)
[2021-04-30 04:06] LABS: Basophils % (A) 0 %; Eosinophils # (A) 0.4 k/uL (0-0.7); Eosinophils % (A) 4 %; HCT 35.9 % (34.0-46.0); HGB 12.5 gm/dL (11.4-16.0); Lymphocytes # (A) 3.3 k/uL (1.0-4.8); Lymphocytes % (A) 33 %; MCH 30.5 pg (25.0-35.0); MCHC 34.9 g/dL (31.0-37.0); MCV 87.3 fL (80.0-100.0); Mean Platelet Volume 8.5; Monocytes # (A) 0.5 k/uL (0-1.0); Monocytes % (A) 5 %; Neutrophils # (A) 5.5 k/uL (1.3-7.7); Neutrophils % (A) 56 %; Platelet Count 206 k/uL (150-450); RBC 4.11 m/uL (3.80-5.40); RDW 14.2 % (11.5-15.5)
[2021-04-30 04:27] LABS: INR 1.2 (<1.2); Partial Thromboplastin Time 97.6 sec (22.0-30.0); Prothrombin Time 12.6 sec (9.0-12.0)
[2021-04-30 07:28] VITALS: RESP 18; TEMP 97.8
[2021-04-30] MEDS ORDERED: FAMOTIDINE 20 MG TAB PO SCH (07:30)
[2021-04-30] MEDS ORDERED: DICYCLOMINE 20 MG TAB PO SCH (07:30)
[2021-04-30] MEDS ORDERED: ACETAMINOPHEN TAB 325 MG TAB PO STA (08:07)
[2021-04-30] MEDS ORDERED: ACETAMINOPHEN TAB 500 MG TAB PO PRN (08:14)
[2021-04-30] MEDS ORDERED: atenoloL 25 MG TAB PO SCH (09:00)
[2021-04-30] MEDS: FUROSEMIDE 40 MG TAB PO SCH (09:55)
--- NOTE | 2021-04-30 11:07 | P.HPIM ---
History of Present Illness H&P Date: 04/30/21 Chief Complaint: Shortness of breath This is a 81-year-old female patient of Dr. Sutton. Patient presented with complaints of chest pain. Patient reports that the chest pain started yesterday and was described as tightness and heaviness across chest. Patient denies any associated nausea vomiting or shortness of breath. Patient does have a significant history for coronary artery disease with single-vessel CABG. Patient also currently maintained on Coumadin for atrial fibrillation. Patient reports his Coumadin has been on hold with plans of colonoscopy for tomorrow. Patient denies any recent illness or fever. Additional medical history includes breast cancer, chest pain, hyperlipidemia and thyroid disorder. Patient does have a permanent pacemaker in 2016. Chest x-ray was performed showing no acute cardiopulmonary process. EKG showing atrial fibrillation nonspecific ST-T wave abnormality probable digitalis effect. Troponins negative 3. BNP 1890. COV ID-19 was negative. Cardiology services have been consulted. D-dimer negative. Patient was started on heparin drip. At this time patient denies chest pain or shortness breath. Patient denies nausea vomiting or diarrhea. Patient denies any urinary burning or frequency Review of Systems Please refer to HPI otherwise unremarkable Past Medical History Past Medical History: Atrial Fibrillation, Coronary Artery Disease (CAD), Ca ncer, Chest Pain / Angina, GERD/Reflux, Hyperlipidemia, Osteoarthritis (OA), Pneumonia, Thyroid Disorder Additional Past Medical History / Comment(s): "Borderline diabetes", paroxysmal Afib, murmur, tachy/jessica/sinus pauses with pacemaker, small hole between ventricles, CPap used for Afib, low blood pressure, R breast cancer with lumpectomies /13 lymph nodes removed/received chemo and radiatin and wears sleeve R arm, IBS, colitis, diverticular disease, PUD/scar tissue present, chronic low back pain, sinus problems, bilateral lower leg edema/lasix, hypothyroid History of Any Multi-Drug Resistant Organisms: None Reported Past Surgical History: Coronary Bypass/CABG, Heart Catheterization, Hernia Repair, Hysterectomy, Orthopedic Surgery, Pacemaker Additional Past Surgical History / Comment(s): Multiple cardiac caths with one recently on 03/12/21, 2003 CABG ([place] to LAD), pacemaker, R breast lumpectomies x2/13 R side lymph nodes removed, bilateral inguinal hernia repairs with L side done twice, bilateral total hip arthroplasties, colonoscopies, bilateral cataract removals/lens implants, bilateral blepharoplasties. Past Anesthesia/Blood Transfusion Reactions: Family History of Problems w/ Anesthesia Additional Past Anesthesia/Blood Transfusion Reaction / Comment(s): father got a red rash Type of Cardiac Device: Permanent Pacemaker Device Placement Date:: 2014 Smoking Status: Never smoker - Past Family History Father Family Medical History: Cancer Additional Family Medical History / Comment(s): Father from metastatic cancer at the age of 79yrs. Mother Family Medical History: Blood Disorder Additional Family Medical History / Comment(s): Mother had "too many RBCs" She lived to be 94 yrs old. Medications and Allergies Home Medications Medication Instructions Recorded Confirmed Type Fish Oil/Dha/Epa [Fish Oil 1,200 1 cap PO DAILY 07/10/15 04/29/21 History mg Fish Oil] Nitroglycerin Sl Tabs [Nitrostat] 0.4 mg SUBLINGUAL Q5M PRN 07/10/15 04/29/21 History Spironolactone [Aldactone] 25 mg PO BID 07/10/15 04/29/21 History Atorvastatin [Lipitor] 80 mg PO HS 08/11/16 04/29/21 History Omeprazole 40 mg PO BID 08/11/16 04/29/21 History atenoloL [Tenormin] 25 mg PO QAM 08/11/16 04/29/21 History Aspirin EC [Ecotrin Low Dose] 81 mg PO DIRECTED 06/11/20 04/29/21 History Ezetimibe [Zetia] 10 mg PO HS 06/11/20 04/29/21 History Levothyroxine Sodium [Synthroid] 88 mcg PO HS 06/11/20 04/29/21 History Loratadine [Claritin] 10 mg PO HS 06/11/20 04/29/21 History Cimetidine 200 mg PO AC-BID 09/23/20 04/29/21 History Dicyclomine [Bentyl] 20 mg PO AC-BID 09/23/20 04/29/21 History Calcium Carbonate [Calcium] 600 mg PO DAILY 03/10/21 04/29/21 History Cholecalciferol [Vitamin D3 (25 50 mcg PO DAILY 03/10/21 04/29/21 History Mcg = 1000 Iu)] Furosemide [Lasix] 40 mg PO BID 03/10/21 04/29/21 History Multivitamins, Thera [Multivitamin 1 tab PO DAILY 03/10/21 04/29/21 History (formulary)] Famotidine [Pepcid] 20 mg PO DAILY PRN 03/12/21 04/29/21 History Melatonin 5 mg PO HS 04/29/21 04/29/21 History Warfarin [Coumadin] 5 mg PO DIRECTED 04/29/21 04/29/21 History Warfarin [Coumadin] 6 mg PO DIRECTED 04/29/21 04/29/21 History Allergies Allergy/AdvReac Type Severity Reaction Status Date / Time adhesive Allergy Rash/Hives Verified 04/29/21 19:48 aspirin Allergy Unknown Verified 04/29/21 19:48 Sulfa (Sulfonamide Allergy Rash/Hives Verified 04/29/21 19:48 Antibiotics) elastic bandage Allergy skin gets Uncoded 04/29/21 19:48 red and itchy Physical Exam Vitals: Vital Signs Temp Pulse Resp BP Pulse Ox 04/30/21 07:23 97.8 F 64 18 113/60 94 L 04/30/21 03:59 97.6 F 63 16 97/59 96 04/29/21 23:16 64 16 100/70 98 04/29/21 22:44 70 16 96 04/29/21 19:45 97.7 F 65 18 99/59 97 Intake and Output 04/29/21 04/30/21 04/30/21 22:59 06:59 14:59 Intake Total 65.167 Balance 65.167 Intake: Intake, IV Titration 65.167 Amount Heparin Sod,Pork in 0.45% 65.167 NaCl 25,000 unit In 0.45 % NaCl 1 250ml.bag @ 11. 1345 UNITS/KG/HR 10 mls/ hr IV .Q24H [facility] Rx#: [id number] Other: Weight 89.811 kg 89.811 kg Head normocephalic Neck supple Lungs clear to auscultation bilaterally no wheezing or crackles Heart irregular rate known atrial fibrillation Abdomen is soft nontender nondistended positive bowel sounds no hepatosplenomegaly Extremities no edema Neuro alert and orientated to 3 Results CBC & Chem 7: 04/30/21 03:42 04/29/21 19:55 Labs: Abnormal Lab Results - Last 24 Hours (Table) 04/29/21 04/29/21 04/29/21 Range/Units 19:55 19:55 19:55 WBC 10.7 H (3.8-10.6) k/uL PT 12.9 H (9.0-12.0) sec INR 1.3 H (<1.2) APTT (22.0-30.0) sec Sodium 133 L (137-145) mmol/L Chloride 97 L (98-107) mmol/L BUN 24 H (7-17) mg/dL Creatinine 1.22 H (0.52-1.04) mg/dL Glucose 111 H (74-99) mg/dL 04/30/21 Range/Units 03:42 WBC (3.8-10.6) k/uL PT 12.6 H (9.0-12.0) sec INR 1.2 H (<1.2) APTT 97.6 H (22.0-30.0) sec Sodium (137-145) mmol/L Chloride (98-107) mmol/L BUN (7-17) mg/dL Creatinine (0.52-1.04) mg/dL Glucose (74-99) mg/dL Thrombosis Risk Factor Assmnt - Choose All That Apply Any of the Below Risk Factors Present?: Yes Each Factor Represents 1 point: Obesity (BMI >25) Other Risk Factors: Yes Each Risk Factor Represents 2 Points: Malignancy Each Risk Factor Represents 3 Points: Age 75 years or older Other congenital or acquired thrombophilia - If yes, enter type in comment: No Thrombosis Risk Factor Assessment Total Risk Factor Score: 6 Thrombosis Risk Factor Assessment Level: High Risk Assessment and Plan Assessment: 1. Chest pain. Troponins negative 3. D-dimer negative. Cardiology services have been consulted 2. History of paroxysmal atrial fibrillation currently maintained on Coumadin. Per patient Coumadin has been on hold plans for colonoscopy tomorrow outpatient 3. History of coronary artery disease with history of coronary artery bypass graft surgery. Patient also has multiple stents last stent in March 2021 4. History of breast cancer 5. History of hyperlipidemia. Maintained on statin 6. History of hypothyroidism. Maintained on Synthroid 7. History of pacemaker 2016 Time with Patient: Greater than 30 (Greater than 60% of the total time spent in counseling and coordination of care)
--- NOTE | 2021-04-30 11:11 | P.CRDCN ---
History of Present Illness History of present illness: HISTORY OF PRESENTING ILLNESS This is a pleasant 80-year-old female past medical history significant for coronary artery disease status post single-vessel bypass in 2003, sick sinus syndrome status post permanent pacemaker implantation, paroxysmal atrial fibrillation on long-term anticoagulation, hypertension and dyslipidemia. She follows in the office with Dr. Santo. We have been asked to see in consultation for chest pain. Patient states that her chest pain started yeste rday around 4pm. Located around her torso, she states it was along her "bra line". Her pain started in her back and radiated to the front. She describes as a tightness. She had associated shortness of breath. She states that she has had this pain before and cannot tell the difference between her if it is her heart or her acid reflux. She states it lasted all day. No relieving or aggravating factors. The pain comes and goes. The pain is nonexertional. She denies palpitations, lightheadedness, dizziness, syncope, symptoms of orthopnea or PND. She does have some leg swelling she states that this is not new for her. She is a nonsmoker and nondiabetic. denies alcohol or illicit drug use. She states at home she took nitroglycerin, Pepcid, and in the hospital she was given IV heparin and none of these medications helped relieve her pain. Her pain relieved on its own. She's currently holding her Coumadin due to a planned colonoscopy tomorrow . Current home cardiac medications include Coumadin, aspirin 81 mg daily, when necessary nitroglycerin, Zestril he had 10 mg nightly, atorvastatin 80 mg nightly, atenolol 25 mg daily, spironolactone 25 mg twice a day, Lasix 40 mg twice a day. Patient was seen in the office on 02/26/2021, patient underwent echocardiogram which revealed ejection fraction of 55%, mild mitral regurgitation, moderate tricuspid regurgitation. Patient states that she underwent a stress test however going over the office records no Lexiscan stress test performed. Patient did have her pacemaker interrogated early March, but these records are not available in the office at this time. Patient underwent cardiac catheterization with Dr. Betancourt on 03/12/2021, which revealed intermediate severe disease involving the proximal LAD appear to be in the range of 50-60%, medical management was advised. If the patient is a dramatic she might benefit from possible FFR of the LAD with PCI with a far as ischemic. Patient was not symptomatic at that time and medical management was advised. DIAGNOSTICS EKG reveals atrial fibrillation, heart rate 66, nonspecific STT wave abnormalities. Prior EKG in the office on 02/26/2021 patient was in sinus rhythm with first- degree AV block, incomplete right bundle-branch block Telemetry tracings indicate patient in atrial fibrillation with ventricular controlled rates. Chest xray no acute cardiopulmonary process. Laboratory reviewed, troponin negative 3, proBNP 1890, CBC unremarkable, d- dimer negative, sodium 133, potassium 4.0, serum creatinine 1.22, BUN 24, magnesium 2.1 REVIEW OF SYSTEMS At the time of my exam: CONSTITUTIONAL: Denies fever or chills. CARDIOVASCULAR: Positive chest pain, positive shortness of breath which has resolved. Denies orthopnea, PND or palpitations. RESPIRATORY: Denies cough. GASTROINTESTINAL: Denies abdominal pain, diarrhea, constipation, nausea or vomiting. MUSCULOSKELETAL: Denies myalgias. NEUROLOGIC: Denies numbness, tingling, headacbe or weakness. ENDOCRINE: Denies fatigue, weight change, polydipsia or polyurina. GENITOURINARY: Denies burning, hematuria or urgency with micturation. HEMATOLOGIC: Denies history of anemia or bleeding. PHYSICAL EXAMINATION Blood pressure 113/60 heart rate 64 afebrile and maintaining oxygen saturation 94% on room air CONSTITUTIONAL: No apparent distress. HEENT: Head is normocephalic. Pupils are equal, round. Sclerae anicteric. Mucous membranes of the mouth are moist. No JVD. No carotid bruit. CHEST EXAMINATION: Lungs are clear to auscultation. No chest wall tenderness is noted on palpation or with deep breathing. HEART EXAMINATION: Irregular rate and rhythm. S1, S2 heard. ABDOMEN: Soft, nontender. Positive bowel sounds. EXTREMITIES: 2+ peripheral pulses,mild bilateral lower extremity edema and no calf tenderness. SKIN: intact NEUROLOGIC EXAMINATION: Patient is awake, alert and oriented x3. ASSESSMENT Chest pain, atypical acute coronary syndrome has been ruled out Acute Kidney Injury Subtherapeutic INR- due to holding coumadin for a total of 5 days for colonoscopy tomorrow. Coronary artery disease status post single-vessel bypass in 2003 Sick sinus syndrome status post permanent pacemaker implantation Paroxysmal atrial fibrillation on long-term anticoagulation Hypertension Dyslipidemia PLAN An acute coronary event has been ruled out with no EKG evidence of ischemia and negative cardiac enzymes. From a cardiology perspective patient has had recent echocardiogram and cardiac catheterization. No further testing or cardiac workup at this time. Patient is stable from a cardiology perspective, and follow up with Dr. Santo in the office. We discussed with patient Coumadin versus DOAC agent. Patient states that she wants to continue with her Coumadin at this time Thank you kindly for this consultation. Nurse Practitioner note has been reviewed, I agree with a documented findings and plan of care. Patient was seen and examined. Past Medical History Past Medical History: Atrial Fibrillation, Cancer, Chest Pain / Angina, Hyperlipidemia, Thyroid Disorder Additional Past Medical History / Comment(s): BREAST CANCER with lymph removal on right side, IBS History of Any Multi-Drug Resistant Organisms: None Reported Past Surgical History: Coronary Bypass/CABG, Heart Catheterization, Hernia Repair, Hysterectomy, Orthopedic Surgery, Pacemaker Additional Past Surgical History / Comment(s): yanelis hip replacements, CABG 2003, yanelis cataracts Past Anesthesia/Blood Transfusion Reactions: Family History of Problems w/ Anesthesia Additional Past Anesthesia/Blood Transfusion Reaction / Comment(s): father got a red rash Type of Cardiac Device: Permanent Pacemaker Device Placement Date:: 2015 Past Psychological History: No Psychological Hx Reported Smoking Status: Never smoker - Past Family History Father Family Medical History: Cancer Mother Family Medical History: Blood Disorder Additional Family Medical History / Comment(s): "too thick or thin blood" Medications and Allergies Home Medications Medication Instructions Recorded Confirmed Type Fish Oil/Dha/Epa [Fish Oil 1,200 1 cap PO DAILY 07/10/15 04/29/21 History mg Fish Oil] Nitroglycerin Sl Tabs [Nitrostat] 0.4 mg SUBLINGUAL Q5M PRN 07/10/15 04/29/21 History Spironolactone [Aldactone] 25 mg PO BID 07/10/15 04/29/21 History Atorvastatin [Lipitor] 80 mg PO HS 08/11/16 04/29/21 History Omeprazole 40 mg PO BID 08/11/16 04/29/21 History atenoloL [Tenormin] 25 mg PO QAM 08/11/16 04/29/21 History Aspirin EC [Ecotrin Low Dose] 81 mg PO DIRECTED 06/11/20 04/29/21 History Ezetimibe [Zetia] 10 mg PO HS 06/11/20 04/29/21 History Levothyroxine Sodium [Synthroid] 88 mcg PO HS 06/11/20 04/29/21 History Loratadine [Claritin] 10 mg PO HS 06/11/20 04/29/21 History Cimetidine 200 mg PO AC-BID 09/23/20 04/29/21 History Dicyclomine [Bentyl] 20 mg PO AC-BID 09/23/20 04/29/21 History Calcium Carbonate [Calcium] 600 mg PO DAILY 03/10/21 04/29/21 History Cholecalciferol [Vitamin D3 (25 50 mcg PO DAILY 03/10/21 04/29/21 History Mcg = 1000 Iu)] Furosemide [Lasix] 40 mg PO BID 03/10/21 04/29/21 History Multivitamins, Thera [Multivitamin 1 tab PO DAILY 03/10/21 04/29/21 History (formulary)] Famotidine [Pepcid] 20 mg PO DAILY PRN 03/12/21 04/29/21 History Melatonin 5 mg PO HS 04/29/21 04/29/21 History Warfarin [Coumadin] 5 mg PO DIRECTED 04/29/21 04/29/21 History Warfarin [Coumadin] 6 mg PO DIRECTED 04/29/21 04/29/21 History Allergies Allergy/AdvReac Type Severity Reaction Status Date / Time adhesive Allergy Rash/Hives Verified 04/29/21 19:48 aspirin Allergy Unknown Verified 04/29/21 19:48 Sulfa (Sulfonamide Allergy Rash/Hives Verified 04/29/21 19:48 Antibiotics) elastic bandage Allergy skin gets Uncoded 04/29/21 19:48 red and itchy Physical Exam Vitals: Vital Signs Temp Pulse Resp BP Pulse Ox 04/30/21 03:59 97.6 F 63 16 97/59 96 04/29/21 23:16 64 16 100/70 98 04/29/21 22:44 70 16 96 04/29/21 19:45 97.7 F 65 18 99/59 97 Intake and Output 04/29/21 04/29/21 04/30/21 14:59 22:59 06:59 Intake Total 65.167 Balance 65.167 Intake: Intake, IV Titration 65.167 Amount Heparin Sod,Pork in 0.45% 65.167 NaCl 25,000 unit In 0.45 % NaCl 1 250ml.bag @ 11. 1345 UNITS/KG/HR 10 mls/ hr IV .Q24H [facility] Rx#: [id number] Other: Weight 89.811 kg Results 04/30/21 03:42 04/29/21 19:55 Cardiac Enzymes 04/29/21 04/29/21 04/29/21 Range/Units 19:55 19:55 23:14 AST 28 (14-36) U/L Troponin I <0.012 <0.012 (0.000-0.034) ng/mL 04/30/21 Range/Units 03:42 AST (14-36) U/L Troponin I <0.012 (0.000-0.034) ng/mL Coagulation 04/29/21 04/30/21 Range/Units 19:55 03:42 PT 12.9 H 12.6 H (9.0-12.0) sec APTT 25.7 97.6 H (22.0-30.0) sec CBC 04/29/21 04/30/21 Range/Units 19:55 03:42 WBC 10.7 H 10.0 (3.8-10.6) k/uL RBC 4.53 4.11 (3.80-5.40) m/uL Hgb 13.4 12.5 (11.4-16.0) gm/dL Hct 40.1 35.9 (34.0-46.0) % Plt Count 231 206 (150-450) k/uL Comprehensive Metabolic Panel 04/29/21 Range/Units 19:55 Sodium 133 L (137-145) mmol/L Potassium 4.0 (3.5-5.1) mmol/L Chloride 97 L (98-107) mmol/L Carbon Dioxide 26 (22-30) mmol/L BUN 24 H (7-17) mg/dL Creatinine 1.22 H (0.52-1.04) mg/dL Glucose 111 H (74-99) mg/dL Calcium 9.1 (8.4-10.2) mg/dL AST 28 (14-36) U/L ALT 21 (4-34) U/L Alkaline Phosphatase 87 (38-126) U/L Total Protein 6.3 (6.3-8.2) g/dL Albumin 3.8 (3.5-5.0) g/dL Current Medications Generic Name Dose Route Start Last Admin Trade Name Freq PRN Reason Stop Dose Admin Atenolol 25 mg 04/30/21 09:00 Atenolol 25 Mg Tab PO QAM [facility] Atorvastatin Calcium 80 mg 04/29/21 22:45 04/29/21 22:55 Atorvastatin 80 Mg Tab PO 80 mg HS [facility] Administration Dicyclomine HCl 20 mg 04/30/21 07:30 04/30/21 06:47 Dicyclomine 20 Mg Tab PO 20 mg AC-BID [facility] Administration Ezetimibe 10 mg 04/29/21 23:00 04/30/21 01:08 Ezetimibe 10 Mg Tab PO Not Given HS [facility] Famotidine 20 mg 04/30/21 07:30 04/30/21 06:47 Famotidine 20 Mg Tab PO 20 mg AC-BID [facility] Administration Famotidine 20 mg 04/29/21 22:38 Famotidine 20 Mg Tab PO DAILY PRN reflux Furosemide 40 mg 04/29/21 22:45 04/29/21 22:57 Furosemide 40 Mg Tab PO Not Given BID [facility] Heparin Sodium (Porcine) 0 unit 04/29/21 22:12 Heparin Sodium 1,000 Un/Ml (10ml Vl) IV PER PROTOCOL PRN Low PTT Protocol Heparin Sodium/Sodium Chloride 250 mls @ 10 mls/hr 04/29/21 22:15 04/30/21 06:15 25,000 unit/ Sodium Chloride IV 7.79 units/kg/hr .Q24H [facility] 6.996 mls/hr Titration Protocol 11.1345 UNITS/KG/HR Levothyroxine Sodium 88 mcg 04/29/21 22:45 04/29/21 22:55 Levothyroxine 88 Mcg Tab PO 88 mcg HS [facility] Administration Melatonin 5 mg 04/29/21 22:45 04/29/21 22:55 Melatonin 5 Mg Tablet PO 5 mg HS [facility] Administration Nitroglycerin 0.4 mg 04/29/21 22:04 Nitroglycerin Sl Tabs 0.4 Mg Tab SUBLINGUAL Q5M PRN Chest Pain Intake and Output 04/29/21 04/29/21 04/30/21 14:59 22:59 06:59 Intake Total 65.167 Balance 65.167 Intake: Intake, IV Titration 65.167 Amount Heparin Sod,Pork in 0.45% 65.167 NaCl 25,000 unit In 0.45 % NaCl 1 250ml.bag @ 11. 1345 UNITS/KG/HR 10 mls/ hr IV .Q24H [facility] Rx#: [id number] Other: Weight 89.811 kg Patient Weight 04/30/21 06:59 Weight 89.811 kg 04/30/21 03:42 04/29/21 19:55
[2021-04-30 11:43] LABS: Chol/HDL Ratio 2.76; LDL Cholesterol,Calculated 53.4 mg/dL (0.0-131.0); VLDL Calculation 18.6 mg/dL (5.00-40.00)
--- NOTE | 2021-04-30 12:19 | P.DS ---
Providers Date of admission: 04/29/21 22:04 Expected date of discharge: 04/30/21 Attending physician: Olimpia Arce Consults: 04/29/21 22:04 Consult Physician Urgent Consulting Provider: Griffin Santo Consult Reason/Comments: chest pain, known paitient Do you want consulting provider notified?: Yes, Notify in am Primary care physician: Yaritza Sutton Hospital Course: Hospital course 1. Chest pain. Troponins negative 3. D-dimer negative. Cardiology services have been consulted. D-dimer negative. Per cardiology atypical chest pain, acute coronary syndrome has been ruled out 2. History of paroxysmal atrial fibrillation currently maintained on Coumadin. Per patient Coumadin has been on hold plans for colonoscopy tomorrow outpatient 3. History of coronary artery disease with history of coronary artery bypass graft surgery. Patient also has multiple stents last stent in March 2021 4. History of breast cancer 5. History of hyperlipidemia. Maintained on statin 6. History of hypothyroidism. Maintained on Synthroid 7. History of pacemaker 2016 Discharge diagnosis This is a 81-year-old female patient of Dr. Sutton. Patient presented with complaints of chest pain. Patient reports that the chest pain started yesterday and was described as tightness and heaviness across chest. Patient denies any associated nausea vomiting or shortness of breath. Patient does have a significant history for coronary artery disease with single-vessel CABG. Patient also currently maintained on Coumadin for atrial fibrillation. Patient reports his Coumadin has been on hold with plans of colonoscopy for tomorrow. Patient denies any recent illness or fever. Additional medical history includes breast cancer, chest pain, hyperlipidemia and thyroid disorder. Patient does have a permanent pacemaker in 2016. Chest x-ray was performed showing no acute cardiopulmonary process. EKG showing atrial fibrillation nonspecific ST-T wave abnormality probable digitalis effect. Troponins negative 3. BNP 1890. COVID-19 was negative. Cardiology services have been consulted. D-dimer negative. Patient was started on heparin drip. At this time patient denies chest pain or shortness breath. Patient denies nausea vomiting or diarrhea. Patient denies any urinary burning or frequency On 04/30/2021 patient resources that she is eager to go home. Cardiology has cleared patient for discharge from acute coronary event has been ruled out with no EKG evidence of ischemia. Patient had recent 2-D echo and cardiac catheterization no further testing or cardiac workup at this time. Patient will follow up with cardiology services in 1 week. At this time patient denies chest pain or shortness breath. Patient denies nausea vomiting or diarrhea. Patient denies any urinary burning or frequency Patient Condition at Discharge: Stable Plan - Discharge Summary Discharge Rx Participant: No New Discharge Prescriptions: Continue Nitroglycerin Sl Tabs [Nitrostat] 0.4 mg SUBLINGUAL Q5M PRN PRN Reason: Chest Pain Spironolactone [Aldactone] 25 mg PO BID Fish Oil/Dha/Epa [Fish Oil 1,200 mg Fish Oil] 1 cap PO DAILY Atorvastatin [Lipitor] 80 mg PO HS Omeprazole 40 mg PO BID atenoloL [Tenormin] 25 mg PO QAM Aspirin EC [Ecotrin Low Dose] 81 mg PO DIRECTED Ezetimibe [Zetia] 10 mg PO HS Levothyroxine Sodium [Synthroid] 88 mcg PO HS Loratadine [Claritin] 10 mg PO HS Dicyclomine [Bentyl] 20 mg PO AC-BID Cimetidine 200 mg PO AC-BID Calcium Carbonate [Calcium] 600 mg PO DAILY Famotidine [Pepcid] 20 mg PO DAILY PRN PRN Reason: reflux Melatonin 5 mg PO HS Cholecalciferol [Vitamin D3 (25 Mcg = 1000 Iu)] 50 mcg PO DAILY Furosemide [Lasix] 40 mg PO BID Multivitamins, Thera [Multivitamin (formulary)] 1 tab PO DAILY Warfarin [Coumadin] 6 mg PO DIRECTED Warfarin [Coumadin] 5 mg PO DIRECTED Discharge Medication List Fish Oil/Dha/Epa [Fish Oil 1,200 mg Fish Oil] 1 cap PO DAILY 07/10/15 [History] Nitroglycerin Sl Tabs [Nitrostat] 0.4 mg SUBLINGUAL Q5M PRN 07/10/15 [History] Spironolactone [Aldactone] 25 mg PO BID 07/10/15 [History] Atorvastatin [Lipitor] 80 mg PO HS 08/11/16 [History] Omeprazole 40 mg PO BID 08/11/16 [History] atenoloL [Tenormin] 25 mg PO QAM 08/11/16 [History] Aspirin EC [Ecotrin Low Dose] 81 mg PO DIRECTED 06/11/20 [History] Ezetimibe [Zetia] 10 mg PO HS 06/11/20 [History] Levothyroxine Sodium [Synthroid] 88 mcg PO HS 06/11/20 [History] Loratadine [Claritin] 10 mg PO HS 06/11/20 [History] Cimetidine 200 mg PO AC-BID 09/23/20 [History] Dicyclomine [Bentyl] 20 mg PO AC-BID 09/23/20 [History] Calcium Carbonate [Calcium] 600 mg PO DAILY 03/10/21 [History] Cholecalciferol [Vitamin D3 (25 Mcg = 1000 Iu)] 50 mcg PO DAILY 03/10/21 [History] Furosemide [Lasix] 40 mg PO BID 03/10/21 [History] Multivitamins, Thera [Multivitamin (formulary)] 1 tab PO DAILY 03/10/21 [History] Famotidine [Pepcid] 20 mg PO DAILY PRN 03/12/21 [History] Melatonin 5 mg PO HS 04/29/21 [History] Warfarin [Coumadin] 5 mg PO DIRECTED 04/29/21 [History] Warfarin [Coumadin] 6 mg PO DIRECTED 04/29/21 [History] Follow up Appointment(s)/Referral(s): Griffin Santo MD [STAFF PHYSICIAN] - 1 Week Yaritza Sutton MD [Primary Care Provider] - 1-2 days
[2021-04-30 13:50] VITALS: BP 122/68; PULSE 75
[2021-04-30 18:53] LABS: African American GFR (CKD) 62.1 (60.0-200.0); Albumin 3.9 g/dL (3.80-4.90); Albumin/Globulin Ratio 1.95 (1.60-3.17); Anion Gap 10.3 mmol/L (4.00-12.00); Calcium 8.7 mg/dL (8.7-10.3); Carbon Dioxide 19.7 mmol/L (21.6-31.8); Non-African American GFR(CKD) 53.5 (60.0-200.0); Potassium 4.3 mmol/L (3.5-5.5); Total Bilirubin 0.5 mg/dL (0.2-1.2); Total Protein 5.9 g/dL (6.2-8.2)
[2021-05-01] MEDS ORDERED: FAMOTIDINE 20 MG TAB PO SCH (07:30)
== END 2021-04-30 13:39 | disposition home or self-care (01) ==
LOC: EC 19:44 → 6NMEDSUR 22:04
PROVIDERS: ADMIT Internal Medicine; ATTEND Internal Medicine
DX: R07.89 Other chest pain (principal); I48.0 Paroxysmal atrial fibrillation; I25.10 Atherosclerotic heart disease of native coronary artery without angina pectoris; E78.5 Hyperlipidemia, unspecified; E03.9 Hypothyroidism, unspecified; I10 Essential (primary) hypertension; I49.5 Sick sinus syndrome; Z20.822 Contact with and (suspected) exposure to COVID-19; M19.90 Unspecified osteoarthritis, unspecified site; K21.9 Gastro-esophageal reflux disease without esophagitis; I45.10 Unspecified right bundle-branch block; I44.30 Unspecified atrioventricular block; I08.1 Rheumatic disorders of both mitral and tricuspid valves; R01.1 Cardiac murmur, unspecified; G89.29 Other chronic pain; M54.5 Low back pain; K57.90 Diverticulosis of intestine, part unspecified, without perforation or abscess without bleeding; K58.9 Irritable bowel syndrome, unspecified; M79.89 Other specified soft tissue disorders; Z79.01 Long term (current) use of anticoagulants; Z79.82 Long term (current) use of aspirin; Z79.890 Hormone replacement therapy; Z79.899 Other long term (current) drug therapy; Z91.048 Other nonmedicinal substance allergy status; Z88.2 Allergy status to sulfonamides; Z88.6 Allergy status to analgesic agent; Z90.710 Acquired absence of both cervix and uterus; Z98.41 Cataract extraction status, right eye; Z98.42 Cataract extraction status, left eye; Z96.1 Presence of intraocular lens; Z95.0 Presence of cardiac pacemaker; Z95.1 Presence of aortocoronary bypass graft; Z87.01 Personal history of pneumonia (recurrent); Z96.643 Presence of artificial hip joint, bilateral; Z85.3 Personal history of malignant neoplasm of breast; Z87.19 Personal history of other diseases of the digestive system; Z80.9 Family history of malignant neoplasm, unspecified
CPT/HCPCS: 93005 ×2; 96365; 96366; 99285; 36415; 85379; 83880; 80061; 80053 ×2; 83690; 83735; 84484 ×2; 85025 ×2; 85610 ×2; 85730 ×2; 87635; 71046; G0378 ×2; J1644 ×2

== ENCOUNTER 2021-09-05 11:58 | Day surgery (SDC) | payer MEDICARE ==
[2021-09-03 11:21] VITALS: BMI 31.3
[~2021-09-05 11:58] MED LIST changes: -ALPRAZolam 0.25 MG TAB PO PRN; -ASPIRIN 325 MG TAB PO STA; -HEPARIN SODIUM,PORCINE 10,000 UNIT in SODIUM CHLORIDE 0.9% 1,000 ML IRRIGATION PRN; -HEPARIN SODIUM,PORCINE 2,500 UNIT in SODIUM CHLORIDE 0.9% 250 ML IRRIGATION PRN; +LACTATED RINGERS 1,000 ML IV SCH; +LIDOCAINE 1% (10MG/ML) FOR IV START INTRADERMA PRN; -NITROGLYCERIN SL TABS 0.4 MG TAB SUBLINGUAL PRN; -SODIUM CHLORIDE 0.9% 1,000 ML in EMPTY BAG 1 BAG IV ONE
[2021-09-05 13:05] VITALS: TEMP 98.3
[2021-09-05] MEDS ORDERED: PROPOFOL 10 MG/ML 20 ML VIAL IV ONE (14:08)
--- NOTE | 2021-09-05 14:33 | P.PCN ---
Date of Procedure: 09/05/21 Procedure(s) Performed: BRIEF HISTORY: Patient is a 81-year-old pleasant white female scheduled for an elective colonoscopy as a part of screening for colorectal neoplasia. PROCEDURE PERFORMED: Colonoscopy. PREOPERATIVE DIAGNOSIS: Screening for colon cancer. IV sedation per Anesthesia. PROCEDURE: After informed consent was obtained, the patient, was brought into the endoscopy unit. IV sedation was administered by Anesthesia under continuous monitoring. Digital rectal examination was normal. Initially the Olympus CF-160 flexible video colonoscope was then inserted in the rectum, gradually advanced into the cecum without any difficulty. Careful examination was performed as the scope was gradually being withdrawn. Ileocecal valve and the appendiceal orifice were visualized and appeared normal. Prep was excellent. Mucosa of the cecum, ascending colon, transverse colon, descending colon, sigmoid colon, and rectum appeared normal. In particular seen. Retroflexion was performed in the rectum and no lesions were seen. The patient tolerated the procedure well. IMPRESSION: Normal-appearing colon from rectum to cecum with no evidence of colorectal neoplasia. Moderate size hiatal hernia RECOMMENDATIONS: Findings of this examination were discussed with the patient as well as her family. She was advised to be a high-fiber diet and fiber supplements a regular basis.
[2021-09-05 14:45] VITALS: RESP 16
[2021-09-05 14:57] VITALS: BP 130/71; PULSE 55
== END 2021-09-05 15:15 | disposition home or self-care (01) ==
LOC: ORWHC2ENDO 11:58
PROVIDERS: ATTEND Internal Medicine Gastroenterology
DX: Z12.11 Encounter for screening for malignant neoplasm of colon (principal); K44.9 Diaphragmatic hernia without obstruction or gangrene; I48.91 Unspecified atrial fibrillation; Z79.01 Long term (current) use of anticoagulants; I25.10 Atherosclerotic heart disease of native coronary artery without angina pectoris; Z95.1 Presence of aortocoronary bypass graft; Z95.0 Presence of cardiac pacemaker; K58.9 Irritable bowel syndrome, unspecified; Z79.899 Other long term (current) drug therapy; Z79.82 Long term (current) use of aspirin; Z85.3 Personal history of malignant neoplasm of breast; E78.5 Hyperlipidemia, unspecified; Z96.643 Presence of artificial hip joint, bilateral; E07.9 Disorder of thyroid, unspecified
CPT/HCPCS: J2704; G0121; 45378

== ENCOUNTER → 2022-03-06 | Outpatient (CLI) | payer MEDICARE ==
--- NOTE | 2022-03-06 11:28 | MM ---
Reason for exam: additional evaluation requested from prior study. Last mammogram was performed 1 year ago. History: Patient is postmenopausal, has history of breast cancer at age 60, and previous chest radiation therapy. Lumpectomy of the right breast, 1999. Chemotherapy, 1999. Radiation therapy of the right breast, 1999. Took estrogen for 2 years beginning at age 57. Took progesterone for 2 years beginning at age 57. Physical Findings: A clinical breast exam by your physician is recommended on an annual basis and results should be correlated with mammographic findings. MG 3D Diag Mammo W/Cad EDVIN Bilateral CC and MLO view(s) were taken. XCCL view(s) were taken of the left breast. Prior study comparison: March 04, 2021, bilateral MG 3d diag mammo w/cad EDVIN. April 18, 2020, bilateral MG 3d diag mammo w/cad EDVIN. The breast tissue is heterogeneously dense. This may lower the sensitivity of mammography. Stable benign calcifications. Stable lumpectomy changes right breast. No significant new findings when compared with previous films. Results were given to the patient verbally at the time of the exam. ASSESSMENT: Benign, BI-RAD 2 RECOMMENDATION: Follow-up diagnostic mammogram of both breasts in 1 year.
== END | disposition home or self-care (01) ==
LOC: RADMAMWWP 10:49
PROVIDERS: ATTEND Family Medicine
DX: R92.1 Mammographic calcification found on diagnostic imaging of breast (principal); Z78.0 Asymptomatic menopausal state; Z85.3 Personal history of malignant neoplasm of breast; Z92.3 Personal history of irradiation
CPT/HCPCS: 77066; G0279; 77062

== ENCOUNTER 2022-07-01 12:50 | Emergency (ER) | payer MEDICARE ==
[2022-07-01 13:03] VITALS: TEMP 98.1
--- NOTE | 2022-07-01 14:38 | ED ---
General Adult HPI - General Chief complaint: Extremity Injury, Lower Stated complaint: rt leg bruise Time Seen by Provider: 07/01/22 13:33 Source: patient, RN notes reviewed Mode of arrival: ambulatory Limitations: no limitations - History of Present Illness Initial comments: 82-year-old female presents emergency Department chief complaint of bruising to her right leg. Patient states started pain in her right lower leg. Patient states that she is on Coumadin and was told that it was elevated 2 days ago at 4.2. Patient states she has not taken it since. Patient denies any trauma difficulty walking no paresthesias. Denies any bowel, bladder incontinence or retention of saddle anesthesias. She denies any other areas of bleeding denies any oral bleeding no epistaxis, no rectal bleeding no hematuria no abdominal pain. - Related Data Home Medications Medication Instructions Recorded Confirmed Nitroglycerin Sl Tabs [Nitrostat] 0.4 mg SUBLINGUAL Q5M PRN 07/10/15 09/03/21 Spironolactone [Aldactone] 25 mg PO BID 07/10/15 09/05/21 Atorvastatin [Lipitor] 80 mg PO HS 08/11/16 09/03/21 Omeprazole 40 mg PO BID 08/11/16 09/05/21 atenoloL [Tenormin] 25 mg PO BID 08/11/16 09/03/21 Aspirin EC [Ecotrin Low Dose] 81 mg PO DAILY 06/11/20 09/03/21 Loratadine [Claritin] 10 mg PO HS 06/11/20 09/03/21 Dicyclomine [Bentyl] 20 mg PO QID 09/23/20 09/05/21 Calcium Carbonate [Calcium] 600 mg PO DAILY 03/10/21 09/05/21 Cholecalciferol [Vitamin D3 (25 50 mcg PO DAILY 03/10/21 09/05/21 Mcg = 1000 Iu)] Furosemide [Lasix] 40 mg PO BID 03/10/21 09/05/21 Multivitamins, Thera [Multivitamin 1 tab PO HS 03/10/21 09/03/21 (formulary)] Famotidine [Pepcid] 40 mg PO DAILY PRN 03/12/21 09/05/21 Melatonin 5 mg PO HS 04/29/21 09/03/21 Warfarin [Coumadin] 5 mg PO SUMOWETHSA 04/29/21 09/03/21 Warfarin [Coumadin] 6 mg PO THFR 04/29/21 09/03/21 Ezetimibe [Zetia] 10 mg PO DAILY 09/03/21 09/05/21 Levothyroxine Sodium [Synthroid] 88 mcg PO HS 09/03/21 09/03/21 Allergies Allergy/AdvReac Type Severity Reaction Status Date / Time adhesive Allergy Rash/Hives Verified 07/01/22 13:03 aspirin Allergy Unknown Verified 07/01/22 13:03 Sulfa (Sulfonamide Allergy Rash/Hives Verified 07/01/22 13:03 Antibiotics) elastic bandage Allergy skin gets Uncoded 07/01/22 13:03 red and itchy Review of Systems ROS Statement: Those systems with pertinent positive or pertinent negative responses have been documented in the HPI. ROS Other: All systems not noted in ROS Statement are negative. Past Medical History Past Medical History: Atrial Fibrillation, Cancer, Chest Pain / Angina, Hyperlipidemia, Thyroid Disorder Additional Past Medical History / Comment(s): BREAST CANCER with lymph removal on right side, IBS History of Any Multi-Drug Resistant Organisms: None Reported Past Surgical History: Coronary Bypass/CABG, Heart Catheterization, Hernia Repair, Hysterectomy, Joint Replacement, Pacemaker Additional Past Surgical History / Comment(s): yanelis hip replacements, CABG 2003, yanelis cataracts Past Anesthesia/Blood Transfusion Reactions: No Reported Reaction Additional Past Anesthesia/Blood Transfusion Reaction / Comment(s): father got a red rash Type of Cardiac Device: Permanent Pacemaker Device Placement Date:: 2015 Past Psychological History: No Psychological Hx Reported Smoking Status: Never smoker Past Alcohol Use History: None Reported Past Drug Use History: None Reported - Past Family History Father Family Medical History: Cancer Additional Family Medical History / Comment(s): father experienced rash rash after iodine solution applied to skin Mother Family Medical History: Blood Disorder Additional Family Medical History / Comment(s): "too thick or thin blood" General Exam Limitations: no limitations General appearance: alert, in no apparent distress Head exam: Present: atraumatic, normocephalic, normal inspection Eye exam: Present: normal appearance, PERRL, EOMI. Absent: scleral icterus, conjunctival injection, periorbital swelling Neck exam: Present: normal inspection, full ROM. Absent: tenderness, meningismus, lymphadenopathy Respiratory exam: Present: normal lung sounds bilaterally. Absent: respiratory distress, wheezes, rales, rhonchi, stridor Cardiovascular Exam: Present: regular rate, normal rhythm, normal heart sounds. Absent: systolic murmur, diastolic murmur, rubs, gallop, clicks GI/Abdominal exam: Present: soft, normal bowel sounds. Absent: distended, tenderness, guarding, rebound, rigid Extremities exam: Present: other (Right lower extremity distal tib-fib anterior surface there is small ecchymotic area approximately 1 cm in diameter with minimal surrounding bruising. It is tender with palpation, pedal pulses equal bilaterally, no calf tenderness) Skin exam: Present: warm, dry, intact, normal color. Absent: rash Course Vital Signs 07/01/22 07/01/22 13:01 15:09 Temperature 98.1 F Pulse Rate 65 60 Respiratory 20 18 Rate Blood Pressure 93/50 110/58 O2 Sat by Pulse 96 94 L Oximetry Medical Decision Making - Medical Decision Making 82-year-old presented for right leg hematoma patient has a very small hematoma INR was checked 2.0. Patient did have elevated INR 2 days ago. Patient is neurovascularly intact we did discuss return parameters. Patient agrees to plan discharge no other signs bleeding. - Lab Data Result diagrams: 07/01/22 14:27 Lab Results 07/01/22 07/01/22 Range/Units 14:27 14:27 WBC 9.4 (3.8-10.6) k/uL RBC 4.35 (3.80-5.40) m/uL Hgb 13.4 (11.4-16.0) gm/dL Hct 40.0 (34.0-46.0) % MCV 91.8 (80.0-100.0) fL MCH 30.7 (25.0-35.0) pg MCHC 33.5 (31.0-37.0) g/dL RDW 14.7 (11.5-15.5) % Plt Count 236 (150-450) k/uL MPV 8.2 Neutrophils % 64 % Lymphocytes % 25 % Monocytes % 5 % Eosinophils % 4 % Basophils % 1 % Neutrophils # 6.0 (1.3-7.7) k/uL Lymphocytes # 2.4 (1.0-4.8) k/uL Monocytes # 0.5 (0-1.0) k/uL Eosinophils # 0.4 (0-0.7) k/uL Basophils # 0.1 (0-0.2) k/uL PT 20.4 H (9.0-12.0) sec INR 2.0 H (<1.2) Disposition Clinical Impression: Hematoma of right lower leg Disposition: HOME SELF-CARE Condition: Stable Instructions (If sedation given, give patient instructions): Hematoma (ED) Additional Instructions: Please return to the Emergency Department if symptoms worsen or any other concerns. Is patient prescribed a controlled substance at d/c from ED?: No Referrals: Yaritza Sutton MD [Primary Care Provider] - 1-2 days Time of Disposition: 15:21
[2022-07-01 14:49] LABS: Basophils # (A) 0.1 k/uL (0-0.2); Basophils % (A) 1 %; Eosinophils # (A) 0.4 k/uL (0-0.7); Eosinophils % (A) 4 %; HGB 13.4 gm/dL (11.4-16.0); Lymphocytes # (A) 2.4 k/uL (1.0-4.8); Lymphocytes % (A) 25 %; MCH 30.7 pg (25.0-35.0); MCHC 33.5 g/dL (31.0-37.0); MCV 91.8 fL (80.0-100.0); Mean Platelet Volume 8.2; Monocytes # (A) 0.5 k/uL (0-1.0); Monocytes % (A) 5 %; Neutrophils % (A) 64 %; Platelet Count 236 k/uL (150-450); RBC 4.35 m/uL (3.80-5.40); RDW 14.7 % (11.5-15.5); WBC 9.4 k/uL (3.8-10.6)
[2022-07-01 15:09] VITALS: BP 110/58; PULSE 60; RESP 18
[2022-07-01 15:10] LABS: Prothrombin Time 20.4 sec (9.0-12.0)
== END 2022-07-01 15:41 | disposition home or self-care (01) ==
LOC: EC 12:50
DX: S80.11XA Contusion of right lower leg, initial encounter (principal); E78.5 Hyperlipidemia, unspecified; E07.9 Disorder of thyroid, unspecified; I48.91 Unspecified atrial fibrillation; Z91.048 Other nonmedicinal substance allergy status; Z88.6 Allergy status to analgesic agent; Z88.2 Allergy status to sulfonamides; Z79.01 Long term (current) use of anticoagulants; Z85.3 Personal history of malignant neoplasm of breast; Z79.82 Long term (current) use of aspirin; Z79.890 Hormone replacement therapy; X58.XXXA Exposure to other specified factors, initial encounter
CPT/HCPCS: 36415; 85025; 85610; 99283

== ENCOUNTER → 2022-07-01 | Outpatient (CLI) | payer MEDICARE ==
--- NOTE | 2022-07-01 12:17 | P.SLEEP ---
History of Present Illness DATE: 07/01/2022 CONSULTATION/NEW PATIENT EVALUATION HISTORY OF PRESENT ILLNESS/SLEEP-WAKE EVALUATION: 82 year old lady had been evaluated in the sleep center for obstructive sleep apnea hypopnea syndrome. Patient has been diagnosed with the borderline obstructive sleep apnea-hypopnea syndrome by results of home sleep apnea test which was done in another institution 5 years ago. At that time patient was recommended to use CPAP therapy but she did not use it. Recently because of developing atrial fibrillation and recommendations from bleach boiler filler to treat obstructive sleep apnea hypopnea syndrome patient tried to restart CPAP treatment, but feel uncomfortable and doesn't use CPAP therapy. SLEEP SCHEDULE: Usually sleep schedule from 2 am until 10 AM. FALLING ASLEEP: Patient does have problems with falling asleep, although no TV in bedroom. DURING SLEEP: Patient usually sleeps on the side position with snoring and awakenings from sleep once with nocturia. Positive history of awakenings with dry mouth. No history of hypnogogical hallucinations, sleep paralysis, or cataplexy. DURING THE DAY/WAKE STATE: Patient may feel some sleepiness during the day. [place] sleepiness scale is 8. She usually take 1 nap after lunch time. PAST MEDICAL HISTORY: Paroxysmal lateral fibrillation, coronary artery di sease, interventricular window, hyperlipidemia, hypothyroidism, right breast CA 22 years ago, finger arthritis. PAST SURGICAL HISTORY: CABG, lumpectomy from breast on the right side. MEDICATIONS: Atorvastatin 40 mg 2 tablets a day, levothyroxine 88 g once a day, atenolol 25 mg twice a day, warfarin, omeprazole 40 mg once a day, atenolol 25 mg once a day, aspirin 81 mg once a day, Nitrostat as needed, melatonin 5 mg once a day, ezetimibe 10 mg once a day. SOCIAL HISTORY: Negative for smoking, alcohol consumption occasional. FAMILY HISTORY: Hypertension, heart problems, lung problems, snoring. REVIEW OF SYSTEMS: Snoring, episodes of daytime sleepiness. No fevers. No double vision. No recent chest pain. No shortness of breath. No abdominal pain. No bleeding episodes. No blood in urine. No seizure episodes. PHYSICAL EXAMINATION: GENERAL: A pleasant patient without any distress. VITAL SIGNS: BP 97/61 , HR 62 , RR 20 , weight 201.2 pounds, height 5 foot 4 inches, body mass index 34.5 . HEENT: PITER, EOMI. Evaluation of oropharynx showed tongue protrudes midline, low position of soft palate Mallampati 4. NECK: Supple. No JVD. Thyroid is not palpable. 15-3/4 inches in circumference. LUNGS: Clear to percussion and to auscultation. Good air exchange. No wheezing or rhonchi. HEART: S1, S2 regular. ABDOMEN: Soft and nontender. Bowel sounds are present. No organomegaly appr eciated. EXTREMITIES: No clubbing or cyanosis. Bruise about 2 cm in diameter in the low part of R leg. THERAPEUTIC SALES SPECIALIST: Awake, alert, and oriented x3. Cranial nerves 2 to 7 intact. There is no fasciculation or atrophy noted. No focal deficits observed. ASSESSMENT: 1. Snoring, awakenings from sleep with nocturia. History of obstructive sleep apnea hypopnea syndrome in the past. Small oropharyngeal air space Mallampati 4. Obstructive sleep apnea hypopnea syndrome. 2. Bruise on the right lower leg. 3 history of atrial fibrillation on treatment with warfarin. 4. History of small interventricular window. 5 status post permanent pacemaker insertion. 6. Hyperlipidemia. 7. Hypothyroidism. 8. History of anxiety. 9. Coronary artery disease status post CABG. 10. History of breast CA on the right side treated by lumpectomy, radiation, chemotherapy 22 years ago. 11. Mild obesity. 12 finger arthritis. PLAN: 1. Polysomnography for evaluation of patient's breathing during sleep. 2. CPAP/BiPAP titration if sleep study confirms obstructive sleep apnea- hypopnea syndrome. 3. Preferable position during sleep on the side. 4. No driving if patient feels any sleepiness. Patient is aware of civil and criminal liability for unsafe driving. 5. Sleep hygiene with regular sleep time for at least 7.5-8 hours. 6. Watching weight. 7. Patient was recommended to be checked in the ER for bruise on right ankle to exclude DVT, although it most probably secondary to usage of anticoagulant. Thank you very much for referring this patient for consultation. Sincerely, Arnulfo Kuhn MD, PhD, FAASM. Diplomat of [place] [employer], Sleep Medicine Board by [place] [employer] [place] [employer] [facility] Associate of [facility] [place] Past Medical History Past Medical History: Atrial Fibrillation, Cancer, Chest Pain / Angina, Hyperlipidemia, Thyroid Disorder Additional Past Medical History / Comment(s): BREAST CANCER with lymph removal on right side, IBS History of Any Multi-Drug Resistant Organisms: None Reported Past Surgical History: Coronary Bypass/CABG, Heart Catheterization, Hernia Repair, Hysterectomy, Joint Replacement, Pacemaker Additional Past Surgical History / Comment(s): yanelis hip replacements, CABG 2003, yanelis cataracts Past Anesthesia/Blood Transfusion Reactions: No Reported Reaction Additional Past Anesthesia/Blood Transfusion Reaction / Comment(s): father got a red rash Type of Cardiac Device: Permanent Pacemaker Device Placement Date:: 2015 Smoking Status: Never smoker - Past Family History Father Family Medical History: Cancer Additional Family Medical History / Comment(s): father experienced rash rash after iodine solution applied to skin Mother Family Medical History: Blood Disorder Additional Family Medical History / Comment(s): "too thick or thin blood" Medications and Allergies Home Medications Medication Instructions Recorded Confirmed Type Nitroglycerin Sl Tabs [Nitrostat] 0.4 mg SUBLINGUAL Q5M PRN 07/10/15 09/03/21 History Spironolactone [Aldactone] 25 mg PO BID 07/10/15 09/05/21 History Atorvastatin [Lipitor] 80 mg PO HS 08/11/16 09/03/21 History Omeprazole 40 mg PO BID 08/11/16 09/05/21 History atenoloL [Tenormin] 25 mg PO BID 08/11/16 09/03/21 History Aspirin EC [Ecotrin Low Dose] 81 mg PO DAILY 06/11/20 09/03/21 History Loratadine [Claritin] 10 mg PO HS 06/11/20 09/03/21 History Dicyclomine [Bentyl] 20 mg PO QID 09/23/20 09/05/21 History Calcium Carbonate [Calcium] 600 mg PO DAILY 03/10/21 09/05/21 History Cholecalciferol [Vitamin D3 (25 50 mcg PO DAILY 03/10/21 09/05/21 History Mcg = 1000 Iu)] Furosemide [Lasix] 40 mg PO BID 03/10/21 09/05/21 History Multivitamins, Thera [Multivitamin 1 tab PO HS 03/10/21 09/03/21 History (formulary)] Famotidine [Pepcid] 40 mg PO DAILY PRN 03/12/21 09/05/21 History Melatonin 5 mg PO HS 04/29/21 09/03/21 History Warfarin [Coumadin] 5 mg PO SUMOWETHSA 04/29/21 09/03/21 History Warfarin [Coumadin] 6 mg PO THFR 04/29/21 09/03/21 History Ezetimibe [Zetia] 10 mg PO DAILY 09/03/21 09/05/21 History Levothyroxine Sodium [Synthroid] 88 mcg PO HS 09/03/21 09/03/21 History Allergies Allergy/AdvReac Type Severity Reaction Status Date / Time adhesive Allergy Rash/Hives Verified 09/03/21 11:02 aspirin Allergy Unknown Verified 09/03/21 11:02 Sulfa (Sulfonamide Allergy Rash/Hives Verified 09/03/21 11:02 Antibiotics) elastic bandage Allergy skin gets Uncoded 09/03/21 11:02 red and itchy Sleep Note - Sleep Note Sleep Note: Temperature: Pulse Rate: Respiratory Rate: Blood Pressure: SpO2: Height: Weight: BMI: Neck Circumference:
== END ==
LOC: SLEEP 10:58
PROVIDERS: ATTEND Internal Medicine
DX: G47.33 Obstructive sleep apnea (adult) (pediatric) (principal); I48.91 Unspecified atrial fibrillation; Z79.01 Long term (current) use of anticoagulants; S80.11XA Contusion of right lower leg, initial encounter; Z95.0 Presence of cardiac pacemaker; E78.5 Hyperlipidemia, unspecified; E03.9 Hypothyroidism, unspecified; F41.9 Anxiety disorder, unspecified; I25.10 Atherosclerotic heart disease of native coronary artery without angina pectoris; Z95.1 Presence of aortocoronary bypass graft; Z85.3 Personal history of malignant neoplasm of breast; E66.9 Obesity, unspecified; M19.049 Primary osteoarthritis, unspecified hand; Z68.34 Body mass index [BMI] 34.0-34.9, adult; Z91.048 Other nonmedicinal substance allergy status; Z88.6 Allergy status to analgesic agent; Z88.2 Allergy status to sulfonamides
CPT/HCPCS: 99211

== ENCOUNTER → 2023-03-08 | Outpatient (CLI) | payer MEDICARE ==
--- NOTE | 2023-03-08 14:28 | MM ---
Reason for Exam: Hx of breast cancer, conservation therapy. Last screening mammogram was performed 12 month(s) ago. Patient History: Menarche at age 12. First Full-Term at age 30. Left ovary removed at age 52. Right ovary removed at age 37. Hysterectomy at age 52. Postmenopausal. Patient has history of breast feeding. Breast cancer, right, age 60. Previous chest radiation therapy. Estrogen for 2 years from age 57 until age 59. Progesterone for 2 years from age 57 until age 59. 1999, Lumpectomy on the Right side. 1999, Chemotherapy. 1999, Radiation Therapy on the right side. Prior Study Comparison: 04/03/2019 Bilateral Diagnostic Mammogram, [facility]. 04/18/2020 Bilateral Diagnostic Mammogram, [facility]. 03/04/2021 Bilateral Diagnostic Mammogram, [facility]. 03/06/2022 Bilateral Diagnostic Mammogram, [facility]. Tissue Density: There are scattered fibroglandular densities. Findings: Analyzed By CAD. Generator device projecting over the left pectoralis major. Surgical posttreatment change redemonstrated right breast. Scattered benign secretory, oil cyst, and vascular calcifications are again demonstrated. No significant change from prior exams. Overall Assessment: Benign, BI-RAD 2 Management: Screening Mammogram of both breasts in 1 year. . Results were given to the patient verbally at the time of exam. Patient should continue monthly self-breast exams. A clinical breast exam by your physician is recommended on an annual basis. This exam should not preclude additional follow-up of suspicious palpable abnormalities. Note on Kelly scores and lifetime risk: 1. A Kelly score greater than 3% is considered moderate risk. If this is the case, consider specialist referral to assess eligibility for a risk reducing agent. 2. If overall lifetime risk for the development of breast cancer is 20% or higher, the patient may qualify for future screening with alternating mammogram and breast MRI. Electronically signed and approved by: Judy Hawley M.D. Radiologist
== END | disposition home or self-care (01) ==
LOC: RADMAMWWP 13:51
PROVIDERS: ATTEND Family Medicine
DX: R92.8 Other abnormal and inconclusive findings on diagnostic imaging of breast (principal); Z78.0 Asymptomatic menopausal state; Z92.3 Personal history of irradiation; Z85.3 Personal history of malignant neoplasm of breast
CPT/HCPCS: 77066; G0279; 77062

== ENCOUNTER 2023-05-05 14:49 | Observation (INO) | payer MEDICARE ==
[2023-05-05 16:16] LABS: Basophils % (A) 0 %; Eosinophils # (A) 0.2 k/uL (0-0.7); Eosinophils % (A) 2 %; HCT 39.3 % (34.0-46.0); HGB 13.1 gm/dL (11.4-16.0); Lymphocytes # (A) 3.2 k/uL (1.0-4.8); Lymphocytes % (A) 33 %; MCH 29.6 pg (25.0-35.0); MCHC 33.5 g/dL (31.0-37.0); MCV 88.2 fL (80.0-100.0); Mean Platelet Volume 8.3; Monocytes # (A) 0.5 k/uL (0-1.0); Monocytes % (A) 5 %; Neutrophils # (A) 5.5 k/uL (1.3-7.7); Neutrophils % (A) 57 %; Platelet Count 237 k/uL (150-450); RBC 4.45 m/uL (3.80-5.40); RDW 15.2 % (11.5-15.5); WBC 9.6 k/uL (3.8-10.6)
[2023-05-05 16:25] LABS: INR 1.7 (<1.2); Partial Thromboplastin Time 28.8 sec (22.0-30.0)
[2023-05-05 16:49] LABS: ALT 28 U/L (4-34); AST 27 U/L (14-36); African American GFR (CKD) 82 (>60 ml/min/1.73 sqM); Albumin 3.9 g/dL (3.5-5.0); Alkaline Phosphatase 90 U/L (38-126); Anion Gap 7 mmol/L; Blood Urea Nitrogen 20 mg/dL (7-17); Carbon Dioxide 27 mmol/L (22-30); Chloride 99 mmol/L (98-107); Glucose 107 mg/dL (74-99); Non-African American GFR(CKD) 71 (>60 ml/min/1.73 sqM); Potassium 4.5 mmol/L (3.5-5.1); Sodium 133 mmol/L (137-145); Total Bilirubin 0.6 mg/dL (0.2-1.3); Total Protein 6.6 g/dL (6.3-8.2)
--- NOTE | 2023-05-05 18:14 | ED ---
Chest Pain HPI - General Chief Complaint: Chest Pain Stated Complaint: chest pain Source: patient Mode of arrival: wheelchair Limitations: no limitations - History of Present Illness Initial Comments: A 83-year-old female with past medical history significant for A. fib on thinners with ICD presents to the ED with a chief complaint of chest pain. Patient states after waking this morning she has had chest pain in the middle of her chest described as a feeling as if someone is "sitting on her chest". Patient states pain is 8 out of 10 in severity. Patient states pain is constant in nature. No associated alleviating or aggravating factors. Patient states that she took nitro for the pain which states that she did not experience relief with this. Patient states that she has shortness of breath however notes that the shortness of breath is chronic. Patient states that shortness of breath is not worse than usual. Denies abdominal pain, nausea, vomiting, diarrhea. No other complaints. - Related Data Home Medications Medication Instructions Recorded Confirmed Nitroglycerin Sl Tabs [Nitrostat] 0.4 mg SUBLINGUAL Q5M PRN 07/10/15 09/03/21 Spironolactone [Aldactone] 25 mg PO BID 07/10/15 09/05/21 Atorvastatin [Lipitor] 80 mg PO HS 08/11/16 09/03/21 Omeprazole 40 mg PO BID 08/11/16 09/05/21 atenoloL [Tenormin] 25 mg PO BID 08/11/16 09/03/21 Aspirin EC [Ecotrin Low Dose] 81 mg PO DAILY 06/11/20 09/03/21 Loratadine [Claritin] 10 mg PO HS 06/11/20 09/03/21 Dicyclomine [Bentyl] 20 mg PO QID 09/23/20 09/05/21 Calcium Carbonate [Calcium] 600 mg PO DAILY 03/10/21 09/05/21 Cholecalciferol [Vitamin D3 (25 50 mcg PO DAILY 03/10/21 09/05/21 Mcg = 1000 Iu)] Furosemide [Lasix] 40 mg PO BID 03/10/21 09/05/21 Multivitamins, Thera [Multivitamin 1 tab PO HS 03/10/21 09/03/21 (formulary)] Famotidine [Pepcid] 40 mg PO DAILY PRN 03/12/21 09/05/21 Melatonin 5 mg PO HS 04/29/21 09/03/21 Warfarin [Coumadin] 5 mg PO SUMOWETHSA 04/29/21 09/03/21 Warfarin [Coumadin] 6 mg PO THFR 04/29/21 09/03/21 Ezetimibe [Zetia] 10 mg PO DAILY 09/03/21 09/05/21 Levothyroxine Sodium [Synthroid] 88 mcg PO HS 09/03/21 09/03/21 Allergies Allergy/AdvReac Type Severity Reaction Status Date / Time adhesive Allergy Rash/Hives Verified 05/05/23 15:07 aspirin Allergy Unknown Verified 05/05/23 15:07 Sulfa (Sulfonamide Allergy Rash/Hives Verified 05/05/23 15:07 Antibiotics) elastic bandage Allergy skin gets Uncoded 05/05/23 15:07 red and itchy Review of Systems ROS Statement: Those systems with pertinent positive or pertinent negative responses have been documented in the HPI. ROS Other: All systems not noted in ROS Statement are negative. Past Medical History Past Medical History: Atrial Fibrillation, Cancer, Chest Pain / Angina, Hyperli pidemia, Thyroid Disorder Additional Past Medical History / Comment(s): BREAST CANCER with lymph removal on right side, IBS History of Any Multi-Drug Resistant Organisms: None Reported Past Surgical History: Coronary Bypass/CABG, Heart Catheterization, Hernia Repair, Hysterectomy, Joint Replacement, Pacemaker Additional Past Surgical History / Comment(s): yanelis hip replacements, CABG 2003, yanelis cataracts Past Anesthesia/Blood Transfusion Reactions: No Reported Reaction Additional Past Anesthesia/Blood Transfusion Reaction / Comment(s): father got a red rash Type of Cardiac Device: Permanent Pacemaker Device Placement Date:: 2015 Past Psychological History: No Psychological Hx Reported Smoking Status: Never smoker Past Alcohol Use History: None Reported Past Drug Use History: None Reported - Past Family History Father Family Medical History: Cancer Additional Family Medical History / Comment(s): father experienced rash rash after iodine solution applied to skin Mother Family Medical History: Blood Disorder Additional Family Medical History / Comment(s): "too thick or thin blood" General Exam Limitations: no limitations General appearance: alert, in no apparent distress Head exam: Present: atraumatic, normocephalic Respiratory exam: Present: normal lung sounds bilaterally, other (No Respiratory distress. No accessory muscle use.) Cardiovascular Exam: Present: regular rate, irregular rhythm GI/Abdominal exam: Present: soft (No tenderness to palpation. No rebound guarding or rigidity.) Neurological exam: Present: alert, oriented X3 Psychiatric exam: Present: normal affect, normal mood Skin exam: Present: warm, dry Course Vital Signs 05/05/23 15:07 Temperature 97.9 F Pulse Rate 78 Respiratory 16 Rate Blood Pressure 97/50 O2 Sat by Pulse 95 Oximetry Chest Pain MDM - MDM Was pt. sent in by a medical professional or institution (, PA, IMPROVEMENT LEADER, urgent care, hospital, or fci...) When possible be specific @ -No Did you speak to anyone other than the patient for history (EMS, parent, family, police, friend...)? What history was obtained from this source @ -No Did you review nursing and triage notes (agree or disagree)? Why? @ -I reviewed and agree with nursing and triage notes Were old charts reviewed (outside hosp., previous admission, EMS record, old EKG, old radiological studies, urgent care reports/EKG's, fci records)? Report findings @ -Charts reviewed showing history of A. fib on Coumadin. Differential Diagnosis (chest pain, altered mental status, abdominal pain women, abdominal pain men, vaginal bleeding, weakness, fever, dyspnea, syncope, headache, dizziness, GI bleed, back pain, seizure, CVA, palpatations, mental health, musculoskeletal)? @ -Differential Chest Pain: Stable Angina, Unstable Angina, STEMI, NSTEMI Aortic Dissection, Pneumothorax, Musculoskeletal, Esophageal Spasm GERD, Cholecystitis, Pancreatitis, Zoster, this is not meant to be an all-inclusive list. EKG interpreted by me (3pts min.). @ -EKG shows A. fib with a rate of [address]-T wave changes. QRS 100, QT/QTc 417/49 X-rays interpreted by me (1pt min.). @ -At time of disposition x-ray ordered however not completed. CT interpreted by me (1pt min.). @ -None done U/S interpreted by me (1pt. min.). @ -None done What testing was considered but not performed or refused? (CT, X-rays, U/S, labs)? Why? @ -CT PE was considered however at this time patient notes that no worsening of chronic shortness of breath. Patient is not in significant respiratory distress on exam. Patient is not tachycardic. Additionally patient is on blood thinners. What meds were considered but not given or refused? Why? @ -None Did you discuss the management of the patient with other professionals (professionals i.e. , PA, IMPROVEMENT LEADER, lab, RT, psych nurse, dialysis social worker, second operator, teacher, sales and service officer, rehabilitation caseworker)? Give summary @ -Spoke to Dr. Arce who accepts admission. Was smoking cessation discussed for >3mins.? @ -No Was critical care preformed (if so, how long)? @ -No Were there social determinants of health that impacted care today? How? (Homelessness, low income, unemployed, alcoholism, drug addiction, transportation, low edu. Level, literacy, decrease access to med. care, group home, rehab)? @ -No Was there de-escalation of care discussed even if they declined (Discuss DNR or withdrawal of care, Hospice)? DNR status @ -No What co-morbidities impacted this encounter? (DM, HTN, Smoking, COPD, CAD, Cancer, CVA, ARF, Chemo, Hep., AIDS, mental health diagnosis, sleep apnea, morbid obesity)? @ -A. fib Was patient admitted / discharged? Hospital course, mention meds given and route, prescriptions, significant lab abnormalities, going to OR and other pertinent info. @ -Admitted. At this time initial troponin negative. Labs did show hyponatremia at 133 however review of old charts shows that this is somewhat chronic in nature. Patient will be admitted to observation with consult to cardiology. Respiratory patient who is in agreement. Undiagnosed new problem with uncertain prognosis? @ -No Drug Therapy requiring intensive monitoring for toxicity (Heparin, Nitro, Insulin, Cardizem)? @ -No Were any procedures done? @ -No Diagnosis/symptom? @ -Chest pain Acute, or Chronic, or Acute on Chronic? @ -Acute Uncomplicated (without systemic symptoms) or Complicated (systemic symptoms)? @ -Uncomplicated Side effects of treatment? @ -No Exacerbation, Progression, or Severe Exacerbation? @ -No Poses a threat to life or bodily function? How? (Chest pain, [place], OR, pneumonia, PE, COPD, DKA, ARF, appy, cholecystitis, CVA, Diverticulitis, Homicidal, Suicidal, threat to staff... and all critical care pts) @ -Yes, chest pain Disposition Clinical Impression: Chest pain Disposition: ADMITTED IP TO THIS HOSP Condition: Good Referrals: Yaritza Sutton MD [Primary Care Provider] - 1-2 days Time of Disposition: 18:12
[2023-05-05] MEDS ORDERED: NALOXONE 0.4 MG/ML 1 ML VIAL IV PRN (18:21)
--- NOTE | 2023-05-05 18:47 | XR ---
EXAMINATION TYPE: XR chest 2V DATE OF EXAM: 05/05/2023 6:39 PM COMPARISON: Chest radiographs from 04/29/2021 TECHNIQUE: XR chest 2V Frontal and lateral views of the chest. CLINICAL INDICATION:Female, 83 years old with history of Chest pain; FINDINGS: Lungs/Pleura: There is no evidence of pleural effusion, focal consolidation, or pneumothorax. Chronic senescent parenchymal change. Pulmonary vascularity: Unremarkable. Heart/mediastinum: Cardiomediastinal silhouette is unremarkable. Atherosclerotic calcifications are seen in the aorta. Two lead cardiac conduction device overlying the left hemithorax with lead tips pr ojecting over the right ventricle and right atrium. Musculoskeletal: No acute osseous pathology. Midline sternotomy wires are noted and stable. Other findings: Surgical clips within the right axilla. IMPRESSION: No acute cardiopulmonary disease/process.
[2023-05-05] MEDS: SODIUM CHLORIDE 0.9% 1,000 ML IV SCH (18:53)
[2023-05-05] MEDS ORDERED: FAMOTIDINE 20 MG TAB PO PRN (23:09)
[2023-05-05] MEDS ORDERED: ALPRAZolam 0.25 MG TAB PO PRN (23:09)
[2023-05-05] MEDS ORDERED: DICYCLOMINE 20 MG TAB PO PRN (23:09)
[2023-05-05] MEDS ORDERED: NITROGLYCERIN SL TABS 0.4 MG TAB SUBLINGUAL PRN (23:09)
[2023-05-05] MEDS ORDERED: WARFARIN 5 MG TAB PO SCH (23:30)
[2023-05-05] MEDS: MELATONIN 5 MG TABLET PO SCH (23:37)
[2023-05-05] MEDS: ATORVASTATIN 40 MG TAB PO SCH (23:39)
[2023-05-06] MEDS: LEVOTHYROXINE 88 MCG TAB PO SCH (06:08)
[2023-05-06 08:07] LABS: INR 1.6 (<1.2); Prothrombin Time 15.6 sec (9.0-12.0)
--- NOTE | 2023-05-06 08:56 | P.HPIM ---
History of Present Illness H&P Date: 05/06/23 Gila Eduardo, is an 83-year-old female who presented to [facility] emergency room with a chief complaint of chest pain She was evaluated in the emergency room vital examination on presentation revealed a temperature of 97.6 pulse 61 respirations 16 blood pressure 112/69 pulse ox 94% on room air Laboratory data revealed a white blood count of 9.6 hemoglobin 13.1 platelet count 237 INR 1.7 sodium 133 potassium 4.5 chloride 99 BUN 20 creatinine 0.79 troponin level less than 0.012 Testing in the emergency room revealed EKG done in the emergency room revealed atrial fibrillation with incomplete right bundle branch block, chest x-ray done in the emergency room revealed no acute cardiopulmonary disease. Patient was admitted to medical floor for further evaluation and treatment Past medical history is significant for history of coronary artery disease with history of single-vessel coronary artery bypass graft surgery in 2003, patient had multiple cardiac catheterization but no stent placements in the past per patient there is history of hypertension, hyperlipidemia, history of atrial fibrillation, history of diverticulosis, history of breast cancer history of osteoarthritis with bilateral hip replacement and history of pacemaker placement. On review of systems patient is alert and oriented 3 in no apparent distress there is no fever or chills no headache or dizziness no chest pain at this time no shortness of breath no cough no nausea or vomiting no abdominal pain no diarrhea no blood in the stools no burning with urination no frequency or urgency and no hematuria there is no weakness or numbness in any of the extremities there is no change in vision speech or gait Past Medical History Past Medical History: Atrial Fibrillation, Cancer, Chest Pain / Angina, Hyperlipidemia, Thyroid Disorder Additional Past Medical History / Comment(s): BREAST CANCER with lymph removal on right side, IBS History of Any Multi-Drug Resistant Organisms: None Reported Past Surgical History: Coronary Bypass/CABG, Heart Catheterization, Hernia Repair, Hysterectomy, Joint Replacement, Pacemaker Additional Past Surgical History / Comment(s): yanelis hip replacements, CABG 2003, yanelis cataracts Past Anesthesia/Blood Transfusion Reactions: No Reported Reaction Additional Past Anesthesia/Blood Transfusion Reaction / Comment(s): father got a red rash Type of Cardiac Device: Permanent Pacemaker Device Placement Date:: 2015 Past Psychological History: No Psychological Hx Reported Additional Psychological History / Comment(s): Pt resides with her spouse. She uses a cane. She is independent. Smoking Status: Never smoker Past Alcohol Use History: None Reported Past Drug Use History: None Reported - Past Family History Father Family Medical History: Cancer Additional Family Medical History / Comment(s): father experienced rash rash after iodine solution applied to skin Mother Family Medical History: Blood Disorder Additional Family Medical History / Comment(s): "too thick or thin blood" Medications and Allergies Home Medications Medication Instructions Recorded Confirmed Type Nitroglycerin Sl Tabs [Nitrostat] 0.4 mg SL Q5M PRN 07/10/15 05/05/23 History Spironolactone [Aldactone] 25 mg PO BID 07/10/15 05/05/23 History Atorvastatin [Lipitor] 80 mg PO HS 08/11/16 05/05/23 History Omeprazole 40 mg PO BID 08/11/16 05/05/23 History atenoloL [Tenormin] 25 mg PO BID 08/11/16 05/05/23 History Aspirin EC [Ecotrin Low Dose] 81 mg PO DAILY 06/11/20 05/05/23 History Loratadine [Claritin] 10 mg PO DAILY 06/11/20 05/05/23 History Dicyclomine [Bentyl] 20 mg PO QID PRN 09/23/20 05/05/23 History Furosemide [Lasix] 40 mg PO BID 03/10/21 05/05/23 History Melatonin 5 mg PO HS 04/29/21 05/05/23 History Warfarin [Coumadin] 2.5 mg PO MOTH@1800 04/29/21 05/05/23 History Warfarin [Coumadin] 5 mg PO SUTUWEFRSA@1800 04/29/21 05/05/23 History Ezetimibe [Zetia] 10 mg PO DAILY 09/03/21 05/05/23 History Levothyroxine Sodium [Synthroid] 88 mcg PO DAILY 09/03/21 05/05/23 History ALPRAZolam [Xanax] 0.25 mg PO Q6H PRN 05/05/23 05/05/23 History Calcium Citrate/Vitamin D3 1 tab PO DAILY 05/05/23 05/05/23 History [Citracal + D Maximum Caplet] Cholecalciferol (Vitamin D3) 125 mcg PO DAILY 05/05/23 05/05/23 History [Vitamin D3 (125 MCG = 5,000 IU)] Famotidine 40 mg PO BID PRN 05/05/23 05/05/23 History Apixaban [Eliquis] 5 mg PO BID #60 tab 05/06/23 Rx Allergies Allergy/AdvReac Type Severity Reaction Status Date / Time adhesive Allergy Rash/Hives Verified 05/05/23 21:18 aspirin Allergy Unknown Verified 05/05/23 21:18 Sulfa (Sulfonamide Allergy Rash/Hives Verified 05/05/23 21:28 Antibiotics) elastic bandage Allergy skin gets Uncoded 05/05/23 21:18 red and itchy Physical Exam Vitals: Vital Signs Temp Pulse Pulse Resp BP BP Pulse Ox 05/06/23 06:55 97.6 F 61 16 112/69 94 L 05/06/23 01:55 97.2 F L 67 14 94/61 95 05/05/23 22:25 98.0 F 57 L 16 116/71 95 05/05/23 21:11 74 18 124/74 100 05/05/23 18:30 65 18 101/62 98 05/05/23 18:20 68 18 101/62 97 05/05/23 18:10 64 18 105/61 97 05/05/23 18:00 66 18 108/66 96 05/05/23 17:40 60 18 112/64 96 05/05/23 17:34 71 18 125/64 92 L 05/05/23 15:07 97.9 F 78 16 97/50 95 Intake and Output 05/05/23 05/06/23 05/06/23 22:59 06:59 14:59 Other: # Voids 2 Weight 89.358 kg In general patient is alert and oriented x 3 in no distress HEENT head normocephalic and atraumatic Neck is supple no JVD no goiter no lymphadenopathy no carotid bruit Chest examination is clear to auscultation no crackles no wheezing Cardiac exam reveals regular heart sounds S1 and S2 no gallops, there is 2/6 systolic murmur in the left sternal border Abdomen is soft nontender no organomegaly with normal bowel sounds Extremity exam reveals no edema no cyanosis or clubbing Neurological examination reveals no gross focal deficits Results CBC & Chem 7: 05/05/23 15:50 05/05/23 15:50 Labs: Abnormal Lab Results - Last 24 Hours (Table) 05/05/23 05/05/23 05/06/23 Range/Units 15:50 15:50 07:14 PT 17.0 H 15.6 H (9.0-12.0) sec INR 1.7 H 1.6 H (<1.2) Sodium 133 L (137-145) mmol/L BUN 20 H (7-17) mg/dL Glucose 107 H (74-99) mg/dL Assessment and Plan Plan: Episode of chest pain Underlying history of coronary artery disease with previous history of coronary artery bypass graft surgery Underlying history of atrial fibrillation Underlying history of hypertension Underlying history of hyperlipidemia History of hypothyroidism History of cardiac arrhythmia with history of pacemaker placement History of diverticulosis History of irritable bowel disease History of breast cancer History of osteoarthritis At this time patient is admitted to telemetry floor Home medications reviewed and reordered Serial EKG and cardiac enzymes ordered Cardiology consultation requested Will follow closely
[2023-05-06] MEDS ORDERED: NON FORMULARY DRUG (Calcium Citrate/Vitamin D3 [Citracal + D Maximum Caplet] 1 EACH Tablet PO SCH (09:00)
[2023-05-06] MEDS ORDERED: HEPARIN SODIUM 1,000 UN/ML (10ML VL) IV PRN (09:40)
[2023-05-06] MEDS: SODIUM CHLORIDE 0.9% 1,000 ML IV SCH (10:11)
[2023-05-06] MEDS: HEPARIN SOD,PORK IN 0.45% NACL 25,000 UNIT in 0.45% NACL 1 250ML.BAG IV SCH (10:27)
[2023-05-06] MEDS: LORATADINE 10 MG TAB PO SCH (10:40)
[2023-05-06] MEDS: ASPIRIN 81 MG PO SCH (10:40)
[2023-05-06] MEDS: SPIRONOLACTONE 25 MG TAB PO SCH ×2 (10:40→20:12)
[2023-05-06] MEDS: atenoloL 25 MG TAB PO SCH ×2 (10:40→20:11)
[2023-05-06] MEDS: EZETIMIBE 10 MG TAB PO SCH (10:40)
[2023-05-06] MEDS: CHOLECALCIFEROL 125 MCG (5000 IU) TABLET PO SCH (10:40)
[2023-05-06] MEDS: PANTOPRAZOLE 40 MG TABLET PO SCH ×2 (10:40→20:11)
[2023-05-06] MEDS: FUROSEMIDE 40 MG TAB PO SCH ×2 (10:40→20:11)
[2023-05-06] MEDS ORDERED: ALPRAZolam 0.25 MG TAB PO PRN (10:46)
[2023-05-06] MEDS ORDERED: NITROGLYCERIN SL TABS 0.4 MG TAB SUBLINGUAL PRN (10:46)
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
[2023-05-06 11:40] LABS: Chol/HDL Ratio 2.13 Ratio; LDL Cholesterol,Calculated 49.6 mg/dL (0.0-131.0); VLDL Calculation 15.64 mg/dL (5.00-40.00)
[2023-05-06] MEDS: ALPRAZolam 0.5 MG TAB PO PRN ×3 (12:05→23:54)
[2023-05-06 12:13] LABS: Basophils % (A) 0 %; Eosinophils # (A) 0.2 k/uL (0-0.7); Eosinophils % (A) 2 %; HCT 37.5 % (34.0-46.0); HGB 12.1 gm/dL (11.4-16.0); Lymphocytes # (A) 2.6 k/uL (1.0-4.8); Lymphocytes % (A) 28 %; MCHC 32.3 g/dL (31.0-37.0); MCV 89.6 fL (80.0-100.0); Mean Platelet Volume 8.6; Monocytes # (A) 0.5 k/uL (0-1.0); Monocytes % (A) 5 %; Neutrophils # (A) 5.7 k/uL (1.3-7.7); Neutrophils % (A) 62 %; Platelet Count 207 k/uL (150-450); RBC 4.19 m/uL (3.80-5.40); RDW 15.2 % (11.5-15.5); WBC 9.3 k/uL (3.8-10.6)
--- NOTE | 2023-05-06 15:44 | CA ---
Transthoracic Echo Report Name: Gila Eduardo Age: 83 Gender: F : 1940 Exam Date: 05/06/2023 11:36 Exam Location: [facility] Ht (in): 66 Wt (lb): 197 Ordering Physician: Nai Shultz Attending/Referring Phys: [id number], Carrington Matrix Inspector Cooper Ann Procedure CPT: Indications: LV function Cardiac Hx: Technical Quality: Fair Contrast 1: Total Dose (mL): Contrast 2: Total Dose (mL): MEASUREMENTS (Male / Female) Normal Values 2D ECHO LV Diastolic Diameter PLAX 4.3 cm 4.2 - 5.9 / 3.9 - 5.3 cm LV Systolic Diameter PLAX 2.8 cm IVS Diastolic Thickness 1.0 cm 0.6 - 1.0 / 0.6 - 0.9 cm LVPW Diastolic Thickness 1.0 cm 0.6 - 1.0 / 0.6 - 0.9 cm LV Relative Wall Thickness 0.5 RV Internal Dim ED PLAX 3.7 cm LVOT Diameter 2.0 cm Aortic Root Diameter 3.1 cm LA Systolic Diameter LX 2.8 cm 3.0 - 4.0 / 2.7 - 3.8 cm LV Diastolic Volume MOD BP 43.0 cm??? 67 - 155 / 56 - 104 cm??? LV Systolic Volume MOD BP 22.6 cm??? 22 - 58 / 19 - 49 cm??? LV Ejection Fraction MOD BP 47.5 % >= 55 % LV Diastolic Volume MOD 4C 43.7 cm??? LV Systolic Volume MOD 4C 19.7 cm??? LV Ejection Fraction MOD 4C 54.8 % LV Diastolic Length 4C 5.7 cm LV Systolic Length 4C 4.9 cm LV Diastolic Volume MOD 2C 38.2 cm??? LV Systolic Volume MOD 2C 16.9 cm??? LV Ejection Fraction MOD 2C 55.8 % LV Diastolic Length 2C 6.1 cm LV Systolic Length 2C 5.7 cm LA Volume 42.7 cm??? 18 - 58 / 22 - 52 cm??? Ascending Aorta Diameter 2.9 cm DOPPLER AV Peak Velocity 115.3 cm/s AV Peak Gradient 5.3 mmHg LVOT Peak Velocity 86.7 cm/s LVOT Peak Gradient 3.0 mmHg AV Area Cont Eq pk 2.3 cm??? MV Peak Velocity 125.7 cm/s MV Peak Gradient 6.3 mmHg MV Mean Velocity 50.6 cm/s MV Mean Gradient 1.4 mmHg MV Velocity Time Integral 30.1 cm MR Peak Velocity 203.5 cm/s MR Peak Gradient 16.6 mmHg Mitral E Point Velocity 115.0 cm/s Mitral A Point Velocity 37.8 cm/s Mitral E to A Ratio 3.0 MV Deceleration Time 198.3 ms MV E' Velocity 11.0 cm/s Mitral E to MV E' Ratio 10.5 TR Peak Velocity 231.8 cm/s TR Peak Gradient 21.5 mmHg Right Ventricular Systolic Press 26.7 mmHg PV Peak Velocity 67.1 cm/s PV Peak Gradient 1.8 mmHg FINDINGS Left Ventricle Mildly increased septal wall thickness. Mildly increased posterior wall thickness. Left ventricular ejection fraction is estimated at 50 %. Right Ventricle Normal right ventricular size. RVSP= 30mmhg. Right Atrium Normal right atrial size. Left Atrium Normal left atrial size. Mitral Valve Structurally normal mitral valve. Trace MR. Aortic Valve Trileaflet aortic valve. No aortic valve stenosis or regurgitation. Tricuspid Valve Structurally normal tricuspid valve. Moderate TR. Pulmonic Valve Structurally normal pulmonic valve. Moderate PI. Pericardium Normal pericardium. Aorta Normal size aortic root and proximal ascending aorta. CONCLUSIONS Left ventricle systolic function of the lower limits of normal with subtle septal hypokinesis Mildly dilated right ventricle with tricuspid regurgitation, moderate Lead noted in right ventricle Previewed by: Dr. Griffin Santo MD (Electronically Signed) Final Date: 06 May 2023 15:43
[2023-05-06] MEDS ORDERED: WARFARIN 2.5 MG TAB PO SCH (18:00)
[2023-05-06] MEDS ORDERED: WARFARIN 7.5 MG TAB PO ONE (18:00)
[2023-05-06] MEDS: MELATONIN 5 MG TABLET PO SCH (20:11)
[2023-05-06] MEDS: ATORVASTATIN 40 MG TAB PO SCH (20:12)
[2023-05-06] MEDS ORDERED: MELATONIN 5 MG TABLET PO SCH (21:00)
[2023-05-06] MEDS: SODIUM CHLORIDE 0.9% 1,000 ML in EMPTY BAG 1 BAG IV SCH (22:21)
[2023-05-07] MEDS: PANTOPRAZOLE 40 MG TABLET PO SCH ×2 (04:34→19:36)
[2023-05-07] MEDS: EZETIMIBE 10 MG TAB PO SCH (04:34)
[2023-05-07] MEDS: LORATADINE 10 MG TAB PO SCH (04:34)
[2023-05-07] MEDS: ASPIRIN 81 MG PO SCH (04:35)
[2023-05-07] MEDS: SPIRONOLACTONE 25 MG TAB PO SCH ×2 (04:35→19:36)
[2023-05-07] MEDS: CHOLECALCIFEROL 125 MCG (5000 IU) TABLET PO SCH (04:35)
[2023-05-07] MEDS: atenoloL 25 MG TAB PO SCH ×2 (04:35→19:36)
[2023-05-07] MEDS: LEVOTHYROXINE 88 MCG TAB PO SCH (04:35)
[2023-05-07] MEDS: FUROSEMIDE 40 MG TAB PO SCH ×2 (04:38→19:36)
[2023-05-07 04:44] LABS: Glucose,Whole Blood 119 mg/dL (70-110)
[2023-05-07] MEDS ORDERED: ASPIRIN 325 MG TAB PO ONE (05:00)
[2023-05-07] MEDS ORDERED: ATORVASTATIN 80 MG TAB PO ONE (05:00)
[2023-05-07 06:30] LABS: INR 2.1 (<1.2); Prothrombin Time 20.2 sec (9.0-12.0)
[2023-05-07] MEDS ORDERED: HEPARIN SODIUM,PORCINE 2,500 UNIT in SODIUM CHLORIDE 0.9% 250 ML IRRIGATION PRN (07:00)
[2023-05-07] MEDS ORDERED: HEPARIN SODIUM,PORCINE 10,000 UNIT in SODIUM CHLORIDE 0.9% 1,000 ML IRRIGATION PRN (07:00)
[2023-05-07 08:53] LABS: Basophils # (A) 0.02 X 10*3/uL (0.00-0.10); Basophils % (A) 0.2 %; Eosinophils # (A) 0.27 X 10*3/uL (0.04-0.35); Eosinophils % (A) 2.7 %; HGB 12.9 d/dL (12.0-15.0); Lymphocytes # (A) 1.33 X 10*3/uL (0.90-5.00); Lymphocytes % (A) 13.1 %; MCH 29.7 pg (27.0-32.0); MCHC 32.3 d/dL (32.0-37.0); Mean Platelet Volume 11.5 FL (9.5-12.2); Monocytes # (A) 0.84 X 10*3/uL (0.20-1.00); Monocytes % (A) 8.3 %; NRBC Per 100 WBC 0 X 10*3/uL (0.00-0.01); Neutrophils # (A) 7.65 X 10*3/uL (1.80-7.70); Neutrophils % (A) 75.3 %; Platelet Count 190 X 10*3/uL (140-440); RBC 4.35 X 10*6/uL (4.10-5.20); RDW 16.4 % (11.5-14.5); WBC 10.15 X 10*3/uL (4.50-10.00)
--- NOTE | 2023-05-07 09:56 | P.PN ---
Subjective Progress Note Date: 05/07/23 Gila Eduardo, is an 83-year-old female who presented to [facility] emergency room with a chief complaint of chest pain She was evaluated in the emergency room vital examination on presentation revealed a temperature of 97.6 pulse 61 respirations 16 blood pressure 112/69 pulse ox 94% on room air Laboratory data revealed a white blood count of 9.6 hemoglobin 13.1 platelet count 237 INR 1.7 sodium 133 potassium 4.5 chloride 99 BUN 20 creatinine 0.79 troponin level less than 0.012 Testing in the emergency room revealed EKG done in the emergency room revealed atrial fibrillation with incomplete right bundle branch block, chest x-ray done in the emergency room revealed no acute cardiopulmonary disease. Patient was admitted to medical floor for further evaluation and treatment Past medical history is significant for history of coronary artery disease with history of single-vessel coronary artery bypass graft surgery in 2003, patient had multiple cardiac catheterization but no stent placements in the past per patient there is history of hypertension, hyperlipidemia, history of atrial fibrillation, history of diverticulosis, history of breast cancer history of osteoarthritis with bilateral hip replacement and history of pacemaker placement. On review of systems patient is alert and oriented 3 in no apparent distress there is no fever or chills no headache or dizziness no chest pain at this time no shortness of breath no cough no nausea or vomiting no abdominal pain no diarrhea no blood in the stools no burning with urination no frequency or urgency and no hematuria there is no weakness or numbness in any of the extremities there is no change in vision speech or gait On 05/07/2023 patient is alert and oriented 3. Patient undergoing cardiac cath today . Current vital signs temp 98.2, heart rate 64, respiratory rate 17, blood pressure 119/71 with pulse ox 97%. This time patient denies chest pain or shortness breath. Patient denies nausea vomiting or diarrhea. Patient denies any urinary burning or frequency . Objective - Vital Signs Vital signs: Vital Signs Temp 98.2 F 05/07/23 00:30 Pulse 64 05/07/23 00:30 Resp 17 05/07/23 00:30 BP 119/71 05/07/23 00:30 Pulse Ox 97 05/07/23 00:30 FiO2 Intake & Output 05/06/23 05/07/23 05/07/23 18:59 06:59 18:59 Intake Total 55.828 157.984 Balance 55.828 157.984 Intake: Intake, IV Titration 55.828 157.984 Amount Heparin Sod,Pork in 0.45% 55.828 157.984 NaCl 25,000 unit In 0.45 % NaCl 1 250ml.bag @ 11. 19 UNITS/KG/HR 9.999 mls/ hr IV .Q24H COUNT INCLUDES THE [facility] Rx#: [id number] Other: Voiding Method Toilet Toilet Toilet # Voids 2 1 - Exam In general patient is alert and oriented x 3 in no distress HEENT head normocephalic and atraumatic Neck is supple no JVD no goiter no lymphadenopathy no carotid bruit Chest examination is clear to auscultation no crackles no wheezing Cardiac exam reveals regular heart sounds S1 and S2 no gallops, there is 2/6 systolic murmur in the left sternal border Abdomen is soft nontender no organomegaly with normal bowel sounds Extremity exam reveals no edema no cyanosis or clubbing Neurological examination reveals no gross focal deficits - Labs CBC & Chem 7: 05/07/23 05:01 05/05/23 15:50 Labs: Abnormal Lab Results - Last 24 Hours (Table) 05/05/23 05/06/23 05/06/23 Range/Units 15:50 09:40 15:25 WBC (4.50-10.00) X 10*3/uL RDW (11.5-14.5) % PT (9.0-12.0) sec INR (<1.2) APTT 47.4 H (22.0-30.0) sec POC Glucose (mg/dL) (70-110) mg/dL Hemoglobin A1c 6.4 H (<=6.0) % Stool Occult Blood Positive H (Negative) 05/07/23 05/07/23 05/07/23 Range/Units 04:43 05:01 05:01 WBC 10.15 H (4.50-10.00) X 10*3/uL RDW 16.4 H (11.5-14.5) % PT 20.2 H (9.0-12.0) sec INR 2.1 H (<1.2) APTT (22.0-30.0) sec POC Glucose (mg/dL) 119 H (70-110) mg/dL Hemoglobin A1c (<=6.0) % Stool Occult Blood (Negative) 05/07/23 Range/Units 07:18 WBC (4.50-10.00) X 10*3/uL RDW (11.5-14.5) % PT (9.0-12.0) sec INR (<1.2) APTT 61.7 H (22.0-30.0) sec POC Glucose (mg/dL) (70-110) mg/dL Hemoglobin A1c (<=6.0) % Stool Occult Blood (Negative) Assessment and Plan Plan: Episode of chest pain Underlying history of coronary artery disease with previous history of coronary artery bypass graft surgery Underlying history of atrial fibrillation Underlying history of hypertension Underlying history of hyperlipidemia History of hypothyroidism History of cardiac arrhythmia with history of pacemaker placement History of diverticulosis History of irritable bowel disease History of breast cancer History of osteoarthritis At this time patient is admitted to telemetry floor Home medications reviewed and reordered Serial EKG and cardiac enzymes ordered Cardiology consultation requested Plans for cardiac catheterization 05/07/2023 Will follow closely
[2023-05-07] MEDS: HEPARIN SOD,PORK IN 0.45% NACL 25,000 UNIT in 0.45% NACL 1 250ML.BAG IV SCH (09:59)
[2023-05-07] MEDS: ONDANSETRON 4 MG/2 ML VIAL IVP PRN (10:46)
[2023-05-07] MEDS: SODIUM CHLORIDE 0.9% 1,000 ML in EMPTY BAG 1 BAG IV SCH ×2 (10:47→17:36)
[2023-05-07] MEDS ORDERED: VERAPAMIL 2.5 MG/ML 2 ML AMP ONE (12:01)
[2023-05-07] MEDS ORDERED: HEPARIN SODIUM 1,000 UN/ML (10ML VL) ONE (12:19)
[2023-05-07] MEDS ORDERED: LIDOCAINE 1% INJ 10MG/ML (20 ML MDV) ONE (12:20)
[2023-05-07] MEDS: ONDANSETRON 4 MG/2 ML VIAL IVP ONE ×2 (12:25→13:01)
[2023-05-07] MEDS: MIDAZOLAM 2 MG/2 ML VIAL IVP ONE ×2 (12:25→12:39)
[2023-05-07] MEDS ORDERED: ONDANSETRON 4 MG/2 ML VIAL ONE (12:25)
[2023-05-07] MEDS ORDERED: LIDOCAINE 1% INJ 10MG/ML (30 ML VIAL-PF) SQ ONE (12:26)
[2023-05-07] MEDS ORDERED: IV FLUID CONTINUATION 1,000 ML IV ONE (12:33)
[2023-05-07] MEDS ORDERED: fentaNYL (PF) 50 MCG/ML 2 ML AMP ONE (12:37)
[2023-05-07] MEDS ORDERED: fentaNYL (PF) 50 MCG/1 ML VIAL IVP ONE (12:39)
[2023-05-07] MEDS ORDERED: MIDAZOLAM 2 MG/2 ML VIAL IVP ONE (12:46)
[2023-05-07] MEDS ORDERED: HEPARIN SODIUM 1,000 UN/ML (10ML VL) IV ONE (12:47)
[2023-05-07] MEDS ORDERED: IOPAMIDOL-370 100ML BTL INJ ONE ×2 (12:55→13:34)
[2023-05-07] MEDS ORDERED: CLOPIDOGREL 75 MG TAB ONE (13:01)
[2023-05-07] MEDS ORDERED: CLOPIDOGREL 75 MG TAB PO ONE (13:01)
[2023-05-07] MEDS ORDERED: MORPHINE SULFATE 4 MG/ML SYRINGE ONE (13:17)
[2023-05-07] MEDS ORDERED: MORPHINE SULFATE 4 MG/ML SYRINGE IVP ONE (13:19)
[2023-05-07] MEDS ORDERED: MAG HYDROX/AL HYDROX/SIMETH 30 ML CUP PO PRN (13:26)
[2023-05-07] MEDS ORDERED: ATROPINE SULFATE 0.1 MG/ML 10ML SYRINGE IV PRN (13:26)
[2023-05-07] MEDS ORDERED: ZOLPIDEM 5 MG TAB PO PRN (13:26)
[2023-05-07] MEDS ORDERED: RX INFO: IV CONTRAST WAS GIVEN 1 EACH MISC MISCELLANE PRN (13:26)
[2023-05-07] MEDS ORDERED: NITROGLYCERIN SL TABS 0.4 MG TAB SUBLINGUAL PRN (13:26)
[2023-05-07] MEDS ORDERED: SODIUM CHLORIDE 0.9% 1,000 ML in EMPTY BAG 1 BAG IV SCH (13:30)
--- NOTE | 2023-05-07 13:34 | P.PCN ---
Date of Procedure: 05/07/23 Operative Findings: CARDIAC CATHETERIZATION AND PERCUTANEOUS CORONARY INTERVENTION PERFORMING PHYSICIAN: Stepan Betancourt MD, [facility] PROCEDURE PERFORMED: 1. Selective right and left coronary angiogram 2. Left heart catheterization 3. Successful stenting of proximal LAD using 3.0 x 28 Xience LEOLA which was postdilated using 3.5 mm balloon with an excellent angiographic results 4. Adjunctive use off FFR as well as intravascular ultrasound 5. Ultrasound-guided access of the right common femoral artery and right common femoral artery angiogram INDICATION: Unstable angina COMPLICATION: None APPROACH: Right common femoral artery LEVEL OF SEDATION: Moderate with the sedation time off 55 minutes PROCEDURE DESCRIPTION: After obtaining an informed consent the patient was brought to the cardiac cork slabs sawyer. The right common femoral artery was cannulated using micropuncture technique under ultrasound guidance and the micropuncture wire passed easily then I placed a 6-Algerian sheath and 11 cm. After that I did selective right and left coronary angiogram using JR4 and JL 4 catheters. After that I did intervene on the left anterior descending artery after FFR was performed. After that I did selective right common femoral artery angiogram. The procedure was completed was no complication SELECTIVE CORONARY ANGIOGRAM: The right coronary artery: Large caliber vessel and a dominant vessel. The RCA is angiographically normal. Distally bifurcates into PDA and PLV branches and both appeared to be angiographically normal. Left main: It is angiographically normal. Bifurcates into left circumflex and LAD. The left circumflex: Large caliber vessel nondominant vessel. The LCx is angiographically normal. Gives rises into a large OM which appeared to be angiographically normal. The left anterior descending artery: Large caliber vessel. The proximal LAD appeared to have a lesion in the range of 60-70%. The ostial LAD also has another lesion appears to be in the range of 60-70%. The mid and distal LAD appears to have I disease only. PCI OF THE LAD: Initially we decided to do one FFR of the LAD. At that point after zeroing the Doppler wire and equalizing between the Doppler wire and guiding catheter which was JL4 guiding catheter I did engage the left main and subsequently wire the LAD. We did iFR and that came in to be ischemic an 0.85. Subsequently I did wire the left circumflex using a whisper wire. Then I did intravascular ultrasound which showed a diameter of the LAD in the proximal portion appears to be about 3.5 mm and in the midportion appears to be around 3.0 mm. I predilated using 2.5 mm balloon before I deployed 3.0 x 28 mm stent where the stent was positioned under fluoroscopy guidance and deployed under fluoroscopy guidance. Postdilatation was performed using 3.5 mm balloon. Final angiogram was performed and showed an excellent angiographic results and the procedure was completed was no complication CONCLUSION: Severe disease involving the ostial and proximal LAD. Confirmed to be flow limiting by iFR. I performed successful stenting of the ostial and proximal LAD Mild disease involving the left circumflex coronary system Mild disease involving the RCA POSTPROCEDURE MANAGEMENT: 1. Dual antiplatelet therapy using aspirin and Plavix for 12 month 2. Aggressive cholesterol control 3. Follow-up with the patient
[2023-05-07 16:14] LABS: Glucose,Whole Blood 82 mg/dL (70-110)
[2023-05-07 16:23] VITALS: BMI 31.8
[2023-05-07] MEDS: HYDROmorphone 1 MG/ML 1 ML SYRINGE IVP PRN (19:29)
[2023-05-07] MEDS: MELATONIN 5 MG TABLET PO SCH (19:36)
[2023-05-07] MEDS: ATORVASTATIN 40 MG TAB PO SCH (19:36)
[2023-05-08] MEDS: LEVOTHYROXINE 88 MCG TAB PO SCH (05:53)
--- NOTE | 2023-05-08 06:10 | P.PN ---
Subjective Progress Note Date: 05/08/23 Principal diagnosis: Coronary artery disease The patient is an 83-year-old female patient with CAD as well as paroxysmal atrial fibrillation as well as hypertension and dyslipidemia who was admitted to the hospital with chest discomfort and underwent heart catheterization yesterday and stenting of the ostial and proximal LAD with a good angiographic results and reduction of stenosis from 80% to 0%. May [id number] She was seen and evaluated this morning. She is asymptomatic and hemodynamically stable. The right groin is soft and nontender with no bruises. She is currently on anticoagulation with AND she is on antiplatelet. From the cardiovascular standpoint of view, the patient can be discharged home with Plavix and low-dose a course. She needs to see Dr. Taylor in as an outpatient. Assessment CAD and status post PCI of the LAD as described above Paroxysmal atrial fibrillation Hypertension Dyslipidemia Plan Continue the current medical regimen The patient potentially can be discharged home in the next 24 hours. Objective - Vital Signs Vital signs: Vital Signs Temp 98.4 F 05/07/23 20:00 Pulse 79 05/08/23 02:00 Resp 18 05/08/23 02:00 BP 118/66 05/08/23 02:00 Pulse Ox 92 L 05/08/23 02:00 FiO2 Intake & Output 05/07/23 05/07/23 05/08/23 06:59 18:59 06:59 Intake Total 539.480 840 Output Total 600 Balance 539.480 240 Weight 89.358 kg Intake: IV 100 Intake, IV Titration 199.480 360 Amount Heparin Sod,Pork in 0.45% 199.480 NaCl 25,000 unit In 0.45 % NaCl 1 250ml.bag @ 11. 19 UNITS/KG/HR 9.999 mls/ hr IV .Q24H [facility] Rx#: [id number] Sodium Chloride 0.9% 1, 360 000 ml In Empty Bag 1 bag @ 75 mls/hr IV .[id number] [facility] Rx#:[id number] Oral 240 480 Output: Urine 600 Other: Voiding Method Toilet Toilet Toilet # Voids 1 1 1 - Labs CBC & Chem 7: 05/07/23 05:01 05/05/23 15:50 Labs: Abnormal Lab Results - Last 24 Hours (Table) 05/07/23 05/07/23 05/07/23 Range/Units 05:01 05:01 07:18 WBC 10.15 H (4.50-10.00) X 10*3/uL RDW 16.4 H (11.5-14.5) % PT 20.2 H (9.0-12.0) sec INR 2.1 H (<1.2) APTT 61.7 H (22.0-30.0) sec
[2023-05-08] MEDS: CLOPIDOGREL 75 MG TAB PO SCH (08:54)
[2023-05-08] MEDS: LORATADINE 10 MG TAB PO SCH (08:54)
[2023-05-08] MEDS: EZETIMIBE 10 MG TAB PO SCH (08:54)
[2023-05-08] MEDS: FUROSEMIDE 40 MG TAB PO SCH ×2 (08:54→20:03)
[2023-05-08] MEDS: atenoloL 25 MG TAB PO SCH ×2 (08:54→20:03)
[2023-05-08] MEDS: ASPIRIN 81 MG PO SCH (08:54)
[2023-05-08] MEDS: PANTOPRAZOLE 40 MG TABLET PO SCH ×2 (08:54→20:03)
[2023-05-08] MEDS: APIXABAN 2.5 MG TABLET PO SCH ×2 (08:54→20:03)
[2023-05-08] MEDS: CHOLECALCIFEROL 125 MCG (5000 IU) TABLET PO SCH (08:54)
[2023-05-08] MEDS ORDERED: APIXABAN 5 MG TAB PO SCH (09:00)
[2023-05-08] MEDS: ACETAMINOPHEN TAB 325 MG TAB PO PRN (09:38)
[2023-05-08] MEDS: SPIRONOLACTONE 25 MG TAB PO SCH ×2 (09:40→20:03)
[2023-05-08 09:48] LABS: Basophils % (A) 0 %; Eosinophils # (A) 0.2 k/uL (0-0.7); Eosinophils % (A) 3 %; HCT 37.3 % (34.0-46.0); Lymphocytes # (A) 1.5 k/uL (1.0-4.8); Lymphocytes % (A) 20 %; MCH 29.4 pg (25.0-35.0); MCHC 32.2 g/dL (31.0-37.0); MCV 91.1 fL (80.0-100.0); Mean Platelet Volume 8.6; Monocytes # (A) 0.4 k/uL (0-1.0); Monocytes % (A) 6 %; Neutrophils # (A) 4.9 k/uL (1.3-7.7); Neutrophils % (A) 68 %; Platelet Count 172 k/uL (150-450); RBC 4.09 m/uL (3.80-5.40); RDW 15.3 % (11.5-15.5); WBC 7.2 k/uL (3.8-10.6)
[2023-05-08 10:12] LABS: ALT 25 U/L (4-34); AST 27 U/L (14-36); African American GFR (CKD) >90 (>60 ml/min/1.73 sqM); Albumin 3.2 g/dL (3.5-5.0); Alkaline Phosphatase 50 U/L (38-126); Anion Gap 9 mmol/L; Blood Urea Nitrogen 11 mg/dL (7-17); Calcium 8.2 mg/dL (8.4-10.2); Carbon Dioxide 23 mmol/L (22-30); Chloride 104 mmol/L (98-107); Glucose 91 mg/dL (74-99); Non-African American GFR(CKD) 84 (>60 ml/min/1.73 sqM); Sodium 136 mmol/L (137-145); Total Bilirubin 0.7 mg/dL (0.2-1.3); Total Protein 5.8 g/dL (6.3-8.2)
[2023-05-08 10:19] LABS: Potassium 4.1 mmol/L (3.5-5.1)
[2023-05-08] MEDS: ONDANSETRON 4 MG/2 ML VIAL IVP PRN ×2 (11:37→22:11)
[2023-05-08] MEDS: HYDROmorphone 0.5 MG/0.5 ML SYRINGE IVP PRN ×2 (11:37→16:35)
--- NOTE | 2023-05-08 15:37 | P.PN ---
Subjective Progress Note Date: 05/08/23 iGla Eduardo, is an 83-year-old female who presented to [facility] emergency room with a chief complaint of chest pain She was evaluated in the emergency room vital examination on presentation revealed a temperature of 97.6 pulse 61 respirations 16 blood pressure 112/69 pulse ox 94% on room air Laboratory data revealed a white blood count of 9.6 hemoglobin 13.1 platelet count 237 INR 1.7 sodium 133 potassium 4.5 chloride 99 BUN 20 creatinine 0.79 troponin level less than 0.012 Testing in the emergency room revealed EKG done in the emergency room revealed atrial fibrillation with incomplete right bundle branch block, chest x-ray done in the emergency room revealed no acute cardiopulmonary disease. Patient was admitted to medical floor for further evaluation and treatment Past medical history is significant for history of coronary artery disease with history of single-vessel coronary artery bypass graft surgery in 2003, patient had multiple cardiac catheterization but no stent placements in the past per patient there is history of hypertension, hyperlipidemia, history of atrial fibrillation, history of diverticulosis, history of breast cancer history of osteoarthritis with bilateral hip replacement and history of pacemaker placement. On review of systems patient is alert and oriented 3 in no apparent distress there is no fever or chills no headache or dizziness no chest pain at this time no shortness of breath no cough no nausea or vomiting no abdominal pain no diarrhea no blood in the stools no burning with urination no frequency or urgency and no hematuria there is no weakness or numbness in any of the extremities there is no change in vision speech or gait On 05/07/2023 patient is alert and oriented 3. Patient undergoing cardiac cath today . Current vital signs temp 98.2, heart rate 64, respiratory rate 17, blood pressure 119/71 with pulse ox 97%. This time patient denies chest pain or shortness breath. Patient denies nausea vomiting or diarrhea. Patient denies any urinary burning or frequency . On 05/08/2023 patient was seen and examined on the medical floor she is alert and oriented 3 in no apparent distress she is complaining of headache and nausea otherwise she denies any complaints there is no fever or chills no dizziness no chest pain no shortness of breath no cough no vomiting no abdominal pain no diarrhea and no urinary symptoms. Patient underwent cardiac catheterization with stent placement yesterday. She is not feeling well today and not ready for discharge. Objective - Vital Signs Vital signs: Vital Signs Temp 98.6 F 05/08/23 08:00 Pulse 74 05/08/23 08:00 Resp 18 05/08/23 08:00 BP 104/65 05/08/23 08:00 Pulse Ox 95 05/08/23 12:17 FiO2 Intake & Output 05/07/23 05/08/23 05/08/23 18:59 06:59 18:59 Intake Total 539.480 840 180 Output Total 600 Balance 539.480 240 180 Weight 89.358 kg Intake: IV 100 Intake, IV Titration 199.480 360 Amount Heparin Sod,Pork in 0.45% 199.480 NaCl 25,000 unit In 0.45 % NaCl 1 250ml.bag @ 11. 19 UNITS/KG/HR 9.999 mls/ hr IV .Q24H [facility] Rx#: [id number] Sodium Chloride 0.9% 1, 360 000 ml In Empty Bag 1 bag @ 75 mls/hr IV .[id number] [facility] Rx#:[id number] Oral 240 480 180 Output: Urine 600 Other: Voiding Method Toilet Toilet Toilet # Voids 1 1 1 - Exam In general patient is alert and oriented x 3 in no distress HEENT head normocephalic and atraumatic Neck is supple no JVD no goiter no lymphadenopathy no carotid bruit Chest examination is clear to auscultation no crackles no wheezing Cardiac exam reveals regular heart sounds S1 and S2 no gallops, there is 2/6 systolic murmur in the left sternal border Abdomen is soft nontender no organomegaly with normal bowel sounds Extremity exam reveals no edema no cyanosis or clubbing Neurological examination reveals no gross focal deficits - Labs CBC & Chem 7: 05/08/23 09:19 05/08/23 09:19 Labs: Abnormal Lab Results - Last 24 Hours (Table) 05/08/23 Range/Units 09:19 Sodium 136 L (137-145) mmol/L Calcium 8.2 L (8.4-10.2) mg/dL Total Protein 5.8 L (6.3-8.2) g/dL Albumin 3.2 L (3.5-5.0) g/dL Assessment and Plan Plan: Episode of chest pain Underlying history of coronary artery disease with previous history of coronary artery bypass graft surgery Underlying history of atrial fibrillation Underlying history of hypertension Underlying history of hyperlipidemia History of hypothyroidism History of cardiac arrhythmia with history of pacemaker placement History of diverticulosis History of irritable bowel disease History of breast cancer History of osteoarthritis At this time patient is admitted to telemetry floor Home medications reviewed and reordered Serial EKG and cardiac enzymes ordered Cardiology consultation requested Plans for cardiac catheterization 05/07/2023 Will follow closely
[2023-05-08] MEDS: SODIUM CHLORIDE 0.9% 1,000 ML in EMPTY BAG 1 BAG IV SCH ×2 (16:15→20:02)
[2023-05-08] MEDS: ATORVASTATIN 40 MG TAB PO SCH (20:03)
[2023-05-08] MEDS: MELATONIN 5 MG TABLET PO SCH (20:03)
[2023-05-08] MEDS: HYDROmorphone 1 MG/ML 1 ML SYRINGE IVP PRN (22:08)
[2023-05-09] MEDS: HYDROmorphone 0.5 MG/0.5 ML SYRINGE IVP PRN (02:27)
[2023-05-09 05:37] VITALS: RESP 18
--- NOTE | 2023-05-09 05:55 | P.PN ---
Subjective Progress Note Date: 05/09/23 Principal diagnosis: Coronary artery disease The patient is an 83-year-old female patient with CAD as well as paroxysmal atrial fibrillation as well as hypertension and dyslipidemia who was admitted to the hospital with chest discomfort and underwent heart catheterization yesterday and stenting of the ostial and proximal LAD with a good angiographic results and reduction of stenosis from 80% to 0%. May 082022 She was seen and evaluated this morning. She is asymptomatic and hemodynamically stable. The right groin is soft and nontender with no bruises. She is currently on anticoagulation with AND she is on antiplatelet. From the cardiovascular standpoint of view, the patient can be discharged home with Plavix and low-dose a course. She needs to see Dr. Brandon olivas as an outpatient. May 092022 The patient was seen and evaluated this morning. She reports no pain in the chest no shortness of breath but she has been experiencing "wheezing". On examination she does have very mild bilateral expiratory wheezing. She has no lower extremity edema and she doesn't seems to be in any overt congestive heart failure. She is not hypoxic. The vitals are stable. She continues to be on low-dose aspirin as well as Plavix and low-dose of a course. I am going to give the patient a breathing treatment and if she is feeling better she potentially can be discharged home and follow-up with Dr. Hansa olivas as an outpatient. Assessment CAD and status post PCI of the LAD as described above Paroxysmal atrial fibrillation Hypertension Dyslipidemia Mild wheezing Plan The patient will be given a breathing treatment Continue the current medical regimen The patient potentially can be discharged home in the next 24 hours. Objective - Vital Signs Vital signs: Vital Signs Temp 97.9 F 05/09/23 04:00 Pulse 80 05/09/23 04:00 Resp 18 05/09/23 04:00 BP 132/66 05/09/23 04:00 Pulse Ox 93 L 05/09/23 04:00 FiO2 Intake & Output 05/08/23 05/08/23 05/09/23 06:59 18:59 06:59 Intake Total 840 180 300 Output Total 600 Balance 240 180 300 Intake: Intake, IV Titration 360 Amount Sodium Chloride 0.9% 1, 360 000 ml In Empty Bag 1 bag @ 75 mls/hr IV .[id number] [facility] Rx#:[id number] Oral 480 180 300 Output: Urine 600 Other: Voiding Method Toilet Toilet Toilet # Voids 1 1 1 - Labs CBC & Chem 7: 05/08/23 09:19 05/08/23 09:19 Labs: Abnormal Lab Results - Last 24 Hours (Table) 05/08/23 Range/Units 09:19 Sodium 136 L (137-145) mmol/L Calcium 8.2 L (8.4-10.2) mg/dL Total Protein 5.8 L (6.3-8.2) g/dL Albumin 3.2 L (3.5-5.0) g/dL
[2023-05-09] MEDS: LEVOTHYROXINE 88 MCG TAB PO SCH (06:02)
[2023-05-09] MEDS: SODIUM CHLORIDE 0.9% 1,000 ML in EMPTY BAG 1 BAG IV SCH (06:03)
[2023-05-09] MEDS: IPRATROPIUM-ALBUTEROL 3 ML NEB INHALATION SCH ×2 (07:47→11:11)
[2023-05-09] MEDS: CLOPIDOGREL 75 MG TAB PO SCH (09:12)
[2023-05-09] MEDS: EZETIMIBE 10 MG TAB PO SCH (09:12)
[2023-05-09] MEDS: PANTOPRAZOLE 40 MG TABLET PO SCH (09:12)
[2023-05-09] MEDS: FUROSEMIDE 40 MG TAB PO SCH (09:12)
[2023-05-09] MEDS: SPIRONOLACTONE 25 MG TAB PO SCH (09:12)
[2023-05-09] MEDS: LORATADINE 10 MG TAB PO SCH (09:12)
[2023-05-09] MEDS: atenoloL 25 MG TAB PO SCH (09:12)
[2023-05-09] MEDS: APIXABAN 2.5 MG TABLET PO SCH (09:12)
[2023-05-09] MEDS: ASPIRIN 81 MG PO SCH (09:12)
[2023-05-09] MEDS: CHOLECALCIFEROL 125 MCG (5000 IU) TABLET PO SCH (09:12)
[2023-05-09] MEDS: ACETAMINOPHEN TAB 325 MG TAB PO PRN (09:17)
--- NOTE | 2023-05-09 09:58 | P.DS ---
Providers Date of admission: 05/05/23 20:52 Expected date of discharge: 05/09/23 Attending physician: Olimpia Arce Consults: 05/05/23 18:21 Consult Physician Urgent Consulting Provider: Prieto Ayala Consult Reason/Comments: Chest pain Do you want consulting provider notified?: Yes 05/07/23 13:26 Consult Physician Routine Consulting Provider: Prieto Ayala Consult Reason/Comments: Post Interventional Patient Do you want consulting provider notified?: Already Contacted Primary care physician: Yaritza Sutton Hospital Course: Discharge diagnosis Episode of chest pain Underlying history of coronary artery disease with previous history of coronary artery bypass graft surgery Underlying history of atrial fibrillation Underlying history of hypertension Underlying history of hyperlipidemia History of hypothyroidism History of cardiac arrhythmia with history of pacemaker placement History of diverticulosis History of irritable bowel disease History of breast cancer History of osteoarthritis Hospital course Gila Eduardo, is an 83-year-old female who presented to [facility] emergency room with a chief complaint of chest pain She was evaluated in the emergency room vital examination on presentation revealed a temperature of 97.6 pulse 61 respirations 16 blood pressure 112/69 pulse ox 94% on room air Laboratory data revealed a white blood count of 9.6 hemoglobin 13.1 platelet count 237 INR 1.7 sodium 133 potassium 4.5 chloride 99 BUN 20 creatinine 0.79 troponin level less than 0.012 Testing in the emergency room revealed EKG done in the emergency room revealed atrial fibrillation with incomplete right bundle branch block, chest x-ray done in the emergency room revealed no acute cardiopulmonary disease. Patient was admitted to medical floor for further evaluation and treatment Past medical history is significant for history of coronary artery disease with history of single-vessel coronary artery bypass graft surgery in 2003, patient had multiple cardiac catheterization but no stent placements in the past per patient there is history of hypertension, hyperlipidemia, history of atrial fibrillation, history of diverticulosis, history of breast cancer history of osteoarthritis with bilateral hip replacement and history of pacemaker placement. On review of systems patient is alert and oriented 3 in no apparent distress there is no fever or chills no headache or dizziness no chest pain at this time no shortness of breath no cough no nausea or vomiting no abdominal pain no diarrhea no blood in the stools no burning with urination no frequency or urgency and no hematuria there is no weakness or numbness in any of the extremities there is no change in vision speech or gait On 05/07/2023 patient is alert and oriented 3. Patient undergoing cardiac cath today . Current vital signs temp 98.2, heart rate 64, respiratory rate 17, blood pressure 119/71 with pulse ox 97%. This time patient denies chest pain or shortness breath. Patient denies nausea vomiting or diarrhea. Patient denies any urinary burning or frequency . On 05/08/2023 patient was seen and examined on the medical floor she is alert and oriented 3 in no apparent distress she is complaining of headache and nausea otherwise she denies any complaints there is no fever or chills no dizziness no chest pain no shortness of breath no cough no vomiting no abdominal pain no diarrhea and no urinary symptoms. Patient underwent cardiac catheterization with stent placement yesterday. She is not feeling well today and not ready for discharge. On 05/09/2023 patient is alert and oriented times 3. Patient is very eager to be DC'd home. Discussed case with cardiology services patient cleared for discharge. Patient having some wheeziness upon auscultation with easy patient on albuterol inhaler and patient received albuterol treatment prior to discharge. Patient denies chest pain or shortness breath. Patient denies nausea vomiting or diarrhea. Patient denies any urinary burning or frequency. Per cardiology patient to continue low-dose aspirin Plavix and eliquis.. Patient will follow up with Dr. Santo outpatient for management Patient Condition at Discharge: Stable Plan - Discharge Summary New Discharge Prescriptions: New Clopidogrel [Plavix] 75 mg PO DAILY 30 Days #30 tab Apixaban [Eliquis] 5 mg PO BID #60 tab Albuterol Inhaler [Ventolin Hfa Inhaler] 1 - 2 puff INHALATION Q6H PRN #1 dispenser PRN Reason: wheezing Continue Nitroglycerin Sl Tabs [Nitrostat] 0.4 mg SL Q5M PRN PRN Reason: Chest Pain Spironolactone [Aldactone] 25 mg PO BID Atorvastatin [Lipitor] 80 mg PO HS Omeprazole 40 mg PO BID atenoloL [Tenormin] 25 mg PO BID Aspirin EC [Ecotrin Low Dose] 81 mg PO DAILY Loratadine [Claritin] 10 mg PO DAILY Dicyclomine [Bentyl] 20 mg PO QID PRN PRN Reason: IBS Melatonin 5 mg PO HS Cholecalciferol (Vitamin D3) [Vitamin D3 (125 MCG = 5,000 IU)] 125 mcg PO DAILY Calcium Citrate/Vitamin D3 [Citracal + D Maximum Caplet] 1 tab PO DAILY Famotidine 40 mg PO BID PRN PRN Reason: Heartburn Furosemide [Lasix] 40 mg PO BID Levothyroxine Sodium [Synthroid] 88 mcg PO DAILY Ezetimibe [Zetia] 10 mg PO DAILY ALPRAZolam [Xanax] 0.25 mg PO Q6H PRN PRN Reason: Anxiety Discontinued Warfarin [Coumadin] 2.5 mg PO MOTH@1800 Warfarin [Coumadin] 5 mg PO SUTUWEFRSA@1800 Discharge Medication List Nitroglycerin Sl Tabs [Nitrostat] 0.4 mg SL Q5M PRN 07/10/15 [History] Spironolactone [Aldactone] 25 mg PO BID 07/10/15 [History] Atorvastatin [Lipitor] 80 mg PO HS 08/11/16 [History] Omeprazole 40 mg PO BID 08/11/16 [History] atenoloL [Tenormin] 25 mg PO BID 08/11/16 [History] Aspirin EC [Ecotrin Low Dose] 81 mg PO DAILY 06/11/20 [History] Loratadine [Claritin] 10 mg PO DAILY 06/11/20 [History] Dicyclomine [Bentyl] 20 mg PO QID PRN 09/23/20 [History] Furosemide [Lasix] 40 mg PO BID 03/10/21 [History] Melatonin 5 mg PO HS 04/29/21 [History] Ezetimibe [Zetia] 10 mg PO DAILY 09/03/21 [History] Levothyroxine Sodium [Synthroid] 88 mcg PO DAILY 09/03/21 [History] ALPRAZolam [Xanax] 0.25 mg PO Q6H PRN 05/05/23 [History] Calcium Citrate/Vitamin D3 [Citracal + D Maximum Caplet] 1 tab PO DAILY 05/05/23 [History] Cholecalciferol (Vitamin D3) [Vitamin D3 (125 MCG = 5,000 IU)] 125 mcg PO DAILY 05/05/23 [History] Famotidine 40 mg PO BID PRN 05/05/23 [History] Apixaban [Eliquis] 5 mg PO BID #60 tab 05/06/23 [Rx] Albuterol Inhaler [Ventolin Hfa Inhaler] 1 - 2 puff INHALATION Q6H PRN #1 dispenser 05/09/23 [Rx] Clopidogrel [Plavix] 75 mg PO DAILY 30 Days #30 tab 05/09/23 [Rx] Follow up Appointment(s)/Referral(s): Yaritza Sutton MD [Primary Care Provider] - 1-2 days Stepan Betancourt MD [STAFF PHYSICIAN] - 1 Week
[2023-05-09 10:28] VITALS: BP 117/64; TEMP 98.6
[2023-05-09 11:14] VITALS: PULSE 76
== END 2023-05-09 13:38 | disposition home or self-care (01) ==
LOC: EC 14:49 → 6NMEDSUR 20:52 → INTOOBSV 20:52 → 6NMEDSUR 21:00 → 3SCARD 05-07 14:28
PROVIDERS: ADMIT Internal Medicine; ATTEND Internal Medicine
DX: R07.9 Chest pain, unspecified (principal); I25.10 Atherosclerotic heart disease of native coronary artery without angina pectoris; I48.91 Unspecified atrial fibrillation; I10 Essential (primary) hypertension; E78.5 Hyperlipidemia, unspecified; E03.9 Hypothyroidism, unspecified; Z95.1 Presence of aortocoronary bypass graft; Z95.0 Presence of cardiac pacemaker; Z87.19 Personal history of other diseases of the digestive system; K58.9 Irritable bowel syndrome, unspecified; Z85.3 Personal history of malignant neoplasm of breast; M19.90 Unspecified osteoarthritis, unspecified site; Z96.643 Presence of artificial hip joint, bilateral; Z90.710 Acquired absence of both cervix and uterus; Z98.890 Other specified postprocedural states; Z98.42 Cataract extraction status, left eye; Z98.41 Cataract extraction status, right eye; Z83.2 Family history of diseases of the blood and blood-forming organs and certain disorders involving the immune mechanism; Z79.01 Long term (current) use of anticoagulants; Z79.02 Long term (current) use of antithrombotics/antiplatelets; Z79.82 Long term (current) use of aspirin; Z79.890 Hormone replacement therapy; Z79.899 Other long term (current) drug therapy
CPT/HCPCS: 96374; 99285; 36415; 94640 ×2; 94760 ×2; 93005; 93306; 92978; 93454; 93799; 80061; 80053 ×2; 84484; 85025 ×4; 85610 ×3; 85730 ×3; 82272; 83036; 71046; G0378 ×6; C9600; C1887; C1769 ×4; C1725 ×2; C1894; C1753; C1874; J2250; J2270; J2405 ×2; J2001; J1644 ×3; J1170 ×4; Q9967; J3010

== ENCOUNTER 2024-03-04 11:55 | Observation (INO) | payer MEDICARE ==
--- NOTE | 2024-03-04 12:29 | ED ---
Chest Pain HPI - General Chief Complaint: Arrhythmia/Palpitations Stated Complaint: AFIB Time Seen by Provider: 03/04/24 12:15 Source: patient, RN notes reviewed Mode of arrival: ambulatory Limitations: no limitations - History of Present Illness Initial Comments: This is an 83 year old female who presents to the emergency department for chest pain. Symptoms started last night. States that this is in the center of her chest and described as a pressure sensation. Pain feels like prior cardiac issues. Currently follows with Dr. Santo, cardiology. Denies any shortness of breath. She does have mild nausea. Pain does not radiate. She has nitroglycerin at home but did not take any. Patient noted to be hypotensive on arrival. States that her pressure usually runs lower in the 100s systolically, but not this low. MD Complaint: chest pain - Related Data Home Medications Medication Instructions Recorded Confirmed Nitroglycerin Sl Tabs [Nitrostat] 0.4 mg SL Q5M PRN 07/10/15 03/04/24 Spironolactone [Aldactone] 50 mg PO DAILY 07/10/15 03/04/24 Atorvastatin [Lipitor] 80 mg PO HS 08/11/16 03/04/24 Omeprazole 40 mg PO BID 08/11/16 03/04/24 atenoloL [Tenormin] 25 mg PO BID 08/11/16 03/04/24 Loratadine [Claritin] 10 mg PO DAILY 06/11/20 03/04/24 Dicyclomine [Bentyl] 20 mg PO QID 09/23/20 03/04/24 Furosemide [Lasix] 80 mg PO DAILY 03/10/21 03/04/24 Melatonin 5 mg PO HS 04/29/21 03/04/24 Levothyroxine Sodium [Synthroid] 88 mcg PO DAILY 09/03/21 03/04/24 Calcium Citrate/Vitamin D3 1 tab PO DAILY 05/05/23 03/04/24 [Citracal + D Maximum Caplet] Cholecalciferol (Vitamin D3) 125 mcg PO DAILY 05/05/23 03/04/24 [Vitamin D3 (125 MCG = 5,000 IU)] Famotidine 40 mg PO BID PRN 05/05/23 03/04/24 Evolocumab [Repatha Syringe] 140 mg SQ Q14D 03/04/24 03/04/24 Previous Rx's Medication Instructions Recorded Apixaban [Eliquis] 5 mg PO BID #60 tab 05/06/23 Clopidogrel [Plavix] 75 mg PO DAILY 30 Days #30 tab 05/09/23 Allergies Allergy/AdvReac Type Severity Reaction Status Date / Time adhesive Allergy Rash/Hives Verified 03/04/24 13:12 Sulfa (Sulfonamide Allergy Rash/Hives Verified 03/04/24 13:12 Antibiotics) aspirin AdvReac has acid Verified 03/04/24 13:12 reflux that is agrivated by aspirin. elastic bandage Allergy skin gets Uncoded 03/04/24 13:12 red and itchy Review of Systems ROS Statement: Those systems with pertinent positive or pertinent negative responses have been documented in the HPI. ROS Other: All systems not noted in ROS Statement are negative. Past Medical History Past Medical History: Atrial Fibrillation, Cancer, Chest Pain / Angina, Hyperlipidemia, Thyroid Disorder Additional Past Medical History / Comment(s): BREAST CANCER with lymph removal on right side, IBS History of Any Multi-Drug Resistant Organisms: None Reported Past Surgical History: Coronary Bypass/CABG, Heart Catheterization, Hernia Repair, Hysterectomy, Joint Replacement, Pacemaker Additional Past Surgical History / Comment(s): yanelis hip replacements, CABG 2003, yanelis cataracts Past Anesthesia/Blood Transfusion Reactions: No Reported Reaction Additional Past Anesthesia/Blood Transfusion Reaction / Comment(s): father got a red rash Type of Cardiac Device: Permanent Pacemaker Device Placement Date:: 2015 Past Psychological History: No Psychological Hx Reported Smoking Status: Never smoker Past Alcohol Use History: None Reported Past Drug Use History: None Reported - Past Family History Father Family Medical History: Cancer Additional Family Medical History / Comment(s): father experienced rash rash after iodine solution applied to skin Mother Family Medical History: Blood Disorder Additional Family Medical History / Comment(s): "too thick or thin blood" General Exam Limitations: no limitations General appearance: alert, in no apparent distress Head exam: Present: atraumatic, normocephalic, normal inspection Respiratory exam: Present: normal lung sounds bilaterally. Absent: respiratory distress, wheezes, rales, rhonchi, stridor Cardiovascular Exam: Present: irregular rhythm GI/Abdominal exam: Present: soft, normal bowel sounds. Absent: distended, tenderness, guarding, rebound, rigid Neurological exam: Present: alert, oriented X3, CN II-XII intact Psychiatric exam: Present: normal affect, normal mood Skin exam: Present: warm, dry, intact, normal color. Absent: rash Course Vital Signs 03/04/24 03/04/24 03/04/24 12:09 12:11 12:52 Temperature 97.7 F Pulse Rate 61 60 57 L Pulse Rate [ Bilateral] Respiratory 20 18 18 Rate Blood Pressure 86/47 107/47 O2 Sat by Pulse 96 95 98 Oximetry 03/04/24 03/04/24 03/04/24 12:57 13:11 14:11 Temperature Pulse Rate 75 57 L Pulse Rate [ 62 Bilateral] Respiratory 20 16 Rate Blood Pressure 98/57 120/61 O2 Sat by Pulse 95 95 Oximetry 03/04/24 15:11 Temperature Pulse Rate 67 Pulse Rate [ Bilateral] Respiratory 18 Rate Blood Pressure 110/67 O2 Sat by Pulse 96 Oximetry Chest Pain MDM - MDM This is an 83 year old female who presents to the emergency department for chest pain. Was pt. sent in by a medical professional or institution? @ -No Did you speak to anyone other than the patient for history? @ -No Did you review nursing and triage notes? @ -Yes, and I agree, it is accurate with regards to the patient's symptoms. Were old charts reviewed? @ -No Differential Diagnosis? @ -Differential Chest Pain: Stable Angina, Unstable Angina, STEMI, NSTEMI Aortic Dissection, Pneumothorax, Musculoskeletal, Esophageal Spasm GERD, Cholecystitis, Pancreatitis, Zoster, this is not meant to be an all-inclusive list. EKG interpreted by me (3pts min.)? @ -EKG interpreted by me demonstrating the following: Atrial fibrillation. Ventricular rate 64 bpm, QRS duration 112 ms, QTc 441 ms. X-rays interpreted by me (1pt min.)? @ -Chest x-ray obtained, my interpretation identifies no localized consolidations or infiltrates. CT interpreted by me (1pt min.)? @ -Not obtained U/S interpreted by me (1pt. min.)? @ -Not obtained What testing was considered but not performed? (CT, X-rays, U/S, labs)? Why? @ -None What meds were considered but not given? Why? @ -None Did you discuss the management of the patient with other professionals? @ -Yes, Dr. Arce, who accepts the patient for admission. Did you reconcile home meds? @ -Yes Was smoking cessation discussed for >3mins.? @ -No Was critical care preformed (if so, how long)? @ -No Were there social determinants of health that impacted care today? How? (Homelessness, low income, unemployed, alcoholism, drug addiction, transportation, low edu. Level, literacy, decrease access to med. care, residential, rehab)? @ -No Was there de-escalation of care discussed even if they declined? (Discuss DNR or withdrawal of care, Hospice)? @ -No What co-morbidities impacted this encounter? (DM, HTN, Smoking, COPD, CAD, Cancer, CVA, Hep., AIDS, mental health diagnosis, sleep apnea, morbid obesity)? @ -A-fib, CAD, HLD Was patient admitted / discharged? @ -Admitted. Lab work demonstrates an elevated BNP of 2460 and was otherwise unremarkable. Troponin negative. Chest x-ray reveals no acute process. Patient initially hypotensive on arrival with a blood pressure of 86/47. This was corrected with IV fluids. Given the hypotension on arrival, nitroglycerin was avoided, however she states that it is not often effective for her regardless. Patient does have a substantial cardiac history including a CABG and stents. Given the description of the patient's symptoms with significant cardiac history, she was admitted to medicine for cardiac observation. Serial troponins ordered. Consult placed for cardiology. Undiagnosed new problem with uncertain prognosis? @ -None Drug Therapy requiring intensive monitoring for toxicity (Heparin, Nitro, Insulin, Cardizem)? @ -None Were any procedures done? @ -None Diagnosis/symptom? @ -Chest pain Acute, or Chronic, or Acute on Chronic? @ -Acute Uncomplicated (without systemic symptoms) or Complicated (systemic symptoms)? @ -Uncomplicated Side effects of treatment? @ -None Exacerbation, Progression, or Severe Exacerbation] @ -Not applicable Poses a threat to life or bodily function? @ -Potentially, this will depend on the cause This case was discussed in detail with the attending ED physician, Dr. Mathews. Presentation, findings, and treatment plan discussed in detail as well. Disposition Clinical Impression: Chest pain Disposition: ADMITTED IP TO THIS [facility] Time of Disposition: 14:54
[2024-03-04 13:36] LABS: Basophils % (A) 1 %; Eosinophils # (A) 0.3 k/uL (0-0.7); Eosinophils % (A) 3 %; HCT 41.5 % (34.0-46.0); HGB 13.3 gm/dL (11.4-16.0); Lymphocytes # (A) 2.3 k/uL (1.0-4.8); Lymphocytes % (A) 28 %; MCHC 32.1 g/dL (31.0-37.0); MCV 90.5 fL (80.0-100.0); Mean Platelet Volume 8.4; Monocytes # (A) 0.5 k/uL (0-1.0); Monocytes % (A) 6 %; Neutrophils % (A) 60 %; Platelet Count 248 k/uL (150-450); RBC 4.59 m/uL (3.80-5.40); WBC 8.3 k/uL (3.8-10.6)
[2024-03-04 13:51] LABS: Appearance,Urine Clear (Clear); Bilirubin,Urine Negative (Negative); Blood,Urine Negative (Negative); Color,Urine Colorless; Glucose,Urine (UA) Negative (Negative); Ketones,Urine Negative (Negative); Leukocyte Esterase,Urine Negative (Negative); Nitrite,Urine Negative (Negative); PH, Urine 6.5 (5.0-8.0); Protein,Urine Negative (Negative); Specific Gravity,Urine 1.002 (1.001-1.035); Urobilinogen,Urine <2.0 mg/dL (<2.0)
[2024-03-04 13:52] LABS: Partial Thromboplastin Time 25.9 sec (22.0-30.0); Prothrombin Time 10.8 sec (10.0-12.5)
[2024-03-04 14:02] LABS: ALT 20 U/L (4-34); AST 21 U/L (14-36); African American GFR (CKD) >90 (>60 ml/min/1.73 sqM); Albumin 3.6 g/dL (3.5-5.0); Alkaline Phosphatase 103 U/L (38-126); Anion Gap 9 mmol/L; Blood Urea Nitrogen 19 mg/dL (7-17); Calcium 9.2 mg/dL (8.4-10.2); Carbon Dioxide 24 mmol/L (22-30); Chloride 105 mmol/L (98-107); Glucose 113 mg/dL (74-99); Lipase 36 U/L (23-300); Magnesium 1.8 mg/dL (1.6-2.3); Non-African American GFR(CKD) 82 (>60 ml/min/1.73 sqM); Potassium 3.8 mmol/L (3.5-5.1); Sodium 138 mmol/L (137-145); Total Bilirubin 0.5 mg/dL (0.2-1.3); Total Protein 6.1 g/dL (6.3-8.2)
[2024-03-04 14:09] LABS: NT-Pro-B-Type Natriuretic Pept 2460 pg/mL
--- NOTE | 2024-03-04 14:37 | XR ---
EXAMINATION TYPE: XR chest 2V DATE OF EXAM: 03/04/2024 COMPARISON: 05/05/2023 INDICATION: Chest pain TECHNIQUE: Frontal and lateral views of the chest are obtained. FINDINGS: The heart size is normal. Asymmetric overlies left chest. Sternotomy wires are in the midline. Surgi krista clips are in the right axillary region. The pulmonary vasculature is normal. The lungs are clear. IMPRESSION: 1. No acute pulmonary process.
[2024-03-04] MEDS ORDERED: ONDANSETRON 4 MG/2 ML VIAL IVP PRN (14:56)
[2024-03-04] MEDS ORDERED: MORPHINE SULFATE 4 MG/ML SYRINGE IV PRN (14:56)
[2024-03-04] MEDS ORDERED: NALOXONE 0.4 MG/ML 1 ML VIAL IV PRN (14:56)
[2024-03-04] MEDS ORDERED: FAMOTIDINE 20 MG TAB PO PRN (14:57)
[2024-03-04] MEDS: ONDANSETRON 4 MG/2 ML VIAL IVP STA (15:22)
[2024-03-04] MEDS: DICYCLOMINE 20 MG TAB PO SCH (18:55)
[2024-03-04] MEDS: ACETAMINOPHEN TAB 325 MG TAB PO PRN (18:55)
[2024-03-04] MEDS: PANTOPRAZOLE 40 MG TABLET PO SCH (18:55)
[2024-03-04] MEDS: SODIUM CHLORIDE 0.9% 1,000 ML IV STA (20:05)
[2024-03-04] MEDS: atenoloL 25 MG TAB PO SCH (20:56)
[2024-03-04] MEDS: ATORVASTATIN 80 MG TAB PO SCH (20:57)
[2024-03-04] MEDS: MELATONIN 5 MG TABLET PO SCH (20:57)
[2024-03-04] MEDS: APIXABAN 5 MG TAB PO SCH (20:57)
[2024-03-05] MEDS: HYDROcodone/APAP 5-325MG 1 EACH TAB PO PRN (01:38)
[2024-03-05] MEDS: LEVOTHYROXINE 88 MCG TAB PO SCH (05:56)
[2024-03-05] MEDS: CLOPIDOGREL 75 MG TAB PO SCH (08:50)
[2024-03-05] MEDS: LORATADINE 10 MG TAB PO SCH (08:50)
[2024-03-05] MEDS: CHOLECALCIFEROL 125 MCG (5000 IU) TABLET PO SCH (08:50)
[2024-03-05] MEDS: CALCIUM CARB-VIT D 500 MG-5 MCG TAB PO SCH (08:50)
[2024-03-05] MEDS ORDERED: PANTOPRAZOLE 40 MG/10 ML VIAL IV SCH (09:00)
[2024-03-05] MEDS: FUROSEMIDE 80 MG TAB PO SCH (09:57)
--- NOTE | 2024-03-05 10:42 | P.HPIM ---
History of Present Illness H&P Date: 03/05/24 duane redmond is an 83-year-old female patient of Dr. Sutton who presented with complaints of chest pain. Patient reports the pain started yesterdayand was described as central chest pressure. Patient has past medical history of atrial fibrillation, breast cancer, chest pain, angina and thyroid disorder. Chest x-ray completed in ER showing no acute cardiopulmonary process. Patient's vital signs temp 97.4, heart rate 56, respiratory rate 15, blood pressure 107/70 with pulse ox 97% on room air. Troponins negative 3. BMP 2460. UA negative. White blood cell 8.3 hemoglobin 13.3. This time patient will be admitted cardiology services consulted. patient denies chest pain or shortness of breath at this time. Patient denies nausea vomiting or diarrhea. Patient denies any urinary burning or frequency Review of Systems please refer to HPI otherwise unremarkable Past Medical History Past Medical History: Atrial Fibrillation, Cancer, Chest Pain / Angina, Hyperlipidemia, Thyroid Disorder Additional Past Medical History / Comment(s): BREAST CANCER with lymph removal on right side, IBS History of Any Multi-Drug Resistant Organisms: None Reported Past Surgical History: Coronary Bypass/CABG, Heart Catheterization With Stent, Hernia Repair, Hysterectomy, Joint Replacement, Pacemaker Additional Past Surgical History / Comment(s): yanelis hip replacements, CABG 2003, yanelis cataracts Past Anesthesia/Blood Transfusion Reactions: No Reported Reaction Additional Past Anesthesia/Blood Transfusion Reaction / Comment(s): father got a red rash Date of Last Stent Placement:: 05/06/2023 Type of Cardiac Device: Permanent Pacemaker Device Placement Date:: 2015 Past Psychological History: No Psychological Hx Reported Additional Psychological History / Comment(s): Pt resides with her spouse. She uses a cane. She is independent. Smoking Status: Never smoker Past Alcohol Use History: None Reported Past Drug Use History: None Reported - Past Family History Father Family Medical History: Cancer Additional Family Medical History / Comment(s): father experienced rash rash after iodine solution applied to skin Mother Family Medical History: Blood Disorder Additional Family Medical History / Comment(s): "too thick or thin blood" Medications and Allergies Home Medications Medication Instructions Recorded Confirmed Type Nitroglycerin Sl Tabs [Nitrostat] 0.4 mg SL Q5M PRN 07/10/15 03/04/24 History Spironolactone [Aldactone] 50 mg PO DAILY 07/10/15 03/04/24 History Atorvastatin [Lipitor] 80 mg PO HS 08/11/16 03/04/24 History Omeprazole 40 mg PO BID 08/11/16 03/04/24 History atenoloL [Tenormin] 25 mg PO BID 08/11/16 03/04/24 History Loratadine [Claritin] 10 mg PO DAILY 06/11/20 03/04/24 History Dicyclomine [Bentyl] 20 mg PO QID 09/23/20 03/04/24 History Furosemide [Lasix] 80 mg PO DAILY 03/10/21 03/04/24 History Melatonin 5 mg PO HS 04/29/21 03/04/24 History Levothyroxine Sodium [Synthroid] 88 mcg PO DAILY 09/03/21 03/04/24 History Calcium Citrate/Vitamin D3 1 tab PO DAILY 05/05/23 03/04/24 History [Citracal + D Maximum Caplet] Cholecalciferol (Vitamin D3) 125 mcg PO DAILY 05/05/23 03/04/24 History [Vitamin D3 (125 MCG = 5,000 IU)] Famotidine 40 mg PO BID PRN 05/05/23 03/04/24 History Apixaban [Eliquis] 5 mg PO BID #60 tab 05/06/23 03/04/24 Rx Clopidogrel [Plavix] 75 mg PO DAILY 30 Days #30 tab 05/09/23 03/04/24 Rx Evolocumab [Repatha Syringe] 140 mg SQ Q14D 03/04/24 03/04/24 History Allergies Allergy/AdvReac Type Severity Reaction Status Date / Time adhesive Allergy Rash/Hives Verified 03/04/24 13:12 Sulfa (Sulfonamide Allergy Rash/Hives Verified 03/04/24 13:12 Antibiotics) aspirin AdvReac has acid Verified 03/04/24 13:12 reflux that is agrivated by aspirin. elastic bandage Allergy skin gets Uncoded 03/04/24 13:12 red and itchy Physical Exam Vitals: Vital Signs Temp Pulse Pulse Pulse Resp BP BP 03/05/24 07:00 97.4 F L 56 L 15 107/70 03/05/24 01:51 97.4 F L 56 L 15 103/57 03/04/24 23:33 98.1 F 55 L 15 96/54 03/04/24 22:08 56 L 18 91/56 03/04/24 20:06 54 L 18 96/55 03/04/24 19:00 52 L 20 105/60 03/04/24 15:11 67 18 110/67 03/04/24 14:11 57 L 16 120/61 03/04/24 13:11 75 20 98/57 03/04/24 12:57 62 03/04/24 12:52 57 L 18 107/47 03/04/24 12:11 60 18 03/04/24 12:09 97.7 F 61 20 86/47 Pulse Ox 03/05/24 07:00 97 03/05/24 01:51 96 03/04/24 23:33 94 L 03/04/24 22:08 96 03/04/24 20:06 94 L 03/04/24 19:00 95 03/04/24 15:11 96 03/04/24 14:11 95 03/04/24 13:11 95 03/04/24 12:57 03/04/24 12:52 98 03/04/24 12:11 95 03/04/24 12:09 96 Intake and Output 03/04/24 03/05/24 03/05/24 22:59 06:59 14:59 Other: Voiding Method Toilet Weight 85.729 kg thisHead normocephalic Neck supple Lungs clear to auscultation bilaterally no wheezing or crackles Heart regular rate and rhythm S1-S2, no rub or gallop Abdomen is soft nontender nondistended positive bowel sounds no hepatosplenomegaly Extremities no edema Neuro alert and orientated to 3 Results CBC & Chem 7: 03/04/24 13:29 03/04/24 13:29 Labs: Abnormal Lab Results - Last 24 Hours (Table) 03/04/24 Range/Units 13:29 BUN 19 H (7-17) mg/dL Glucose 113 H (74-99) mg/dL Total Protein 6.1 L (6.3-8.2) g/dL Thrombosis Risk Factor Assmnt - Choose All That Apply Any of the Below Risk Factors Present?: Yes Each Factor Represents 1 point: Obesity (BMI >25), Swollen legs (current) Each Risk Factor Represents 3 Points: Age 75 years or older Thrombosis Risk Factor Assessment Total Risk Factor Score: 5 Thrombosis Risk Factor Assessment Level: High Risk Assessment and Plan Assessment: 1. Chest pain. Troponins negative 3 2. History of coronary artery disease with previous history of coronary artery bypass Surgery 3. History of atrial fibrillation 4. History of essential hypertension 5. History of cardiac arrhythmia with history of permanent pacemaker placement 6. History of breast cancer 7. History of hyperlipidemia 8. History of irritable bowel disease 9. History of diverticulosis 7. History of osteoarthritis DVT prophylaxis eliquis. GI prophylaxis Protonix Cardiology services consulted repeat labs ordered Time with Patient: Greater than 30 (Greater than 60% of the total time spent in counseling and coordination of care)
[2024-03-05] MEDS: SPIRONOLACTONE 25 MG TAB PO SCH (11:10)
--- NOTE | 2024-03-05 12:07 | P.CRDCN ---
History of Present Illness Consult date: 03/05/24 Requesting physician: Olimpia Arce Reason for Consult (text): chest pain Chief complaint: chest heaviness, AFib History of present illness: This is an 83-year-old female patient who follows with Dr. Santo in the office. She has a history of paroxysmal atrial fibrillation, sick sinus syndrome, status post pacemaker implantation, CAD with prior one-vessel CABG and prior PCI of the LAD and May 2023 with known mild CAD in the circumflex and RCA, and hyperlipidemia. She presented with complaints of chest heaviness and being in atrial fibrillation. When she was hospitalized in May 2023 she had similar symptoms of a constant heaviness in her chest that she feels is related to the atrial fibrillation. She has had no change in her breathing. The pain does not vary with activity. She has had no orthopnea or PND. She has noticed normal swelling in her ankles. EKG on admission showed atrial fibrillation with controlled ventricular response. Troponins have been negative x 3. She remains in atrial fibrillation and continues to have heaviness in the chest. Blood pressure is on the low side but according to the patient typically runs low. She remains anticoagulated on Eliquis. Recent echocardiogram from May 2023 showed a low normal LV systolic function with an ejection fraction of 50% with moderate TR. Past Medical History Past Medical History: Atrial Fibrillation, Cancer, Chest Pain / Angina, Hyperlipidemia, Thyroid Disorder Additional Past Medical History / Comment(s): BREAST CANCER with lymph removal on right side, IBS History of Any Multi-Drug Resistant Organisms: None Reported Past Surgical History: Coronary Bypass/CABG, Heart Catheterization With Stent, Hernia Repair, Hysterectomy, Joint Replacement, Pacemaker Additional Past Surgical History / Comment(s): yanelis hip replacements, CABG 2003, yaenlis cataracts Past Anesthesia/Blood Transfusion Reactions: No Reported Reaction Additional Past Anesthesia/Blood Transfusion Reaction / Comment(s): father got a red rash Date of Last Stent Placement:: 05/06/2023 Type of Cardiac Device: Permanent Pacemaker Device Placement Date:: 2015 Past Psychological History: No Psychological Hx Reported Additional Psychological History / Comment(s): Pt resides with her spouse. She uses a cane. She is independent. Smoking Status: Never smoker Past Alcohol Use History: None Reported Past Drug Use History: None Reported - Past Family History Father Family Medical History: Cancer Additional Family Medical History / Comment(s): father experienced rash rash after iodine solution applied to skin Mother Family Medical History: Blood Disorder Additional Family Medical History / Comment(s): "too thick or thin blood" Medications and Allergies Home Medications Medication Instructions Recorded Confirmed Type Nitroglycerin Sl Tabs [Nitrostat] 0.4 mg SL Q5M PRN 07/10/15 03/04/24 History Spironolactone [Aldactone] 50 mg PO DAILY 07/10/15 03/04/24 History Atorvastatin [Lipitor] 80 mg PO HS 08/11/16 03/04/24 History Omeprazole 40 mg PO BID 08/11/16 03/04/24 History atenoloL [Tenormin] 25 mg PO BID 08/11/16 03/04/24 History Loratadine [Claritin] 10 mg PO DAILY 06/11/20 03/04/24 History Dicyclomine [Bentyl] 20 mg PO QID 09/23/20 03/04/24 History Furosemide [Lasix] 80 mg PO DAILY 03/10/21 03/04/24 History Melatonin 5 mg PO HS 04/29/21 03/04/24 History Levothyroxine Sodium [Synthroid] 88 mcg PO DAILY 09/03/21 03/04/24 History Calcium Citrate/Vitamin D3 1 tab PO DAILY 05/05/23 03/04/24 History [Citracal + D Maximum Caplet] Cholecalciferol (Vitamin D3) 125 mcg PO DAILY 05/05/23 03/04/24 History [Vitamin D3 (125 MCG = 5,000 IU)] Famotidine 40 mg PO BID PRN 05/05/23 03/04/24 History Apixaban [Eliquis] 5 mg PO BID #60 tab 05/06/23 03/04/24 Rx Clopidogrel [Plavix] 75 mg PO DAILY 30 Days #30 tab 05/09/23 03/04/24 Rx Evolocumab [Repatha Syringe] 140 mg SQ Q14D 03/04/24 03/04/24 History Allergies Allergy/AdvReac Type Severity Reaction Status Date / Time adhesive Allergy Rash/Hives Verified 03/04/24 13:12 Sulfa (Sulfonamide Allergy Rash/Hives Verified 03/04/24 13:12 Antibiotics) aspirin AdvReac has acid Verified 03/04/24 13:12 reflux that is agrivated by aspirin. elastic bandage Allergy skin gets Uncoded 03/04/24 13:12 red and itchy Physical Exam Vitals: Vital Signs Temp Pulse Pulse Pulse Resp BP BP 03/05/24 07:00 97.4 F L 56 L 15 107/70 03/05/24 01:51 97.4 F L 56 L 15 103/57 03/04/24 23:33 98.1 F 55 L 15 96/54 03/04/24 22:08 56 L 18 91/56 03/04/24 20:06 54 L 18 96/55 03/04/24 19:00 52 L 20 105/60 03/04/24 15:11 67 18 110/67 03/04/24 14:11 57 L 16 120/61 03/04/24 13:11 75 20 98/57 03/04/24 12:57 62 03/04/24 12:52 57 L 18 107/47 03/04/24 12:11 60 18 03/04/24 12:09 97.7 F 61 20 86/47 Pulse Ox 03/05/24 07:00 97 03/05/24 01:51 96 03/04/24 23:33 94 L 03/04/24 22:08 96 03/04/24 20:06 94 L 03/04/24 19:00 95 03/04/24 15:11 96 03/04/24 14:11 95 03/04/24 13:11 95 03/04/24 12:57 03/04/24 12:52 98 03/04/24 12:11 95 03/04/24 12:09 96 Intake and Output 03/04/24 03/05/24 03/05/24 22:59 06:59 14:59 Other: Voiding Method Toilet Weight 85.729 kg PHYSICAL EXAMINATION: This is a 83-year-old female in no apparent distress at the time of my examination. VITAL SIGNS: Reviewed. HEENT: Head is atraumatic, normocephalic. Pupils are equal, round. Sclerae anicteric. Conjunctivae are clear. Mucous membranes of the mouth are moist. Neck is supple. There is no elevated jugular venous pressure. No carotid bruit is heard. CHEST EXAMINATION: Clear to auscultation bilaterally. No wheezes rales or rhonchi. Respirations even and nonlabored. HEART EXAMINATION: Heart irregular rate and rhythm, positive S1 and S2. No S3. No S4. Salik murmur. ABDOMEN: Soft, nontender. Bowel sounds are heard. No organomegaly noted. EXTREMITIES: 2+ peripheral pulses with evidence of trace peripheral edema and no calf tenderness noted. NEUROLOGIC EXAMINATION: Patient is awake, alert and oriented x3. Results 03/04/24 13:29 03/04/24 13:29 Cardiac Enzymes 03/04/24 03/04/24 03/04/24 Range/Units 13:29 13:29 16:07 AST 21 (14-36) U/L Troponin I <0.012 <0.012 (0.000-0.034) ng/mL 03/04/24 Range/Units 19:27 AST (14-36) U/L Troponin I <0.012 (0.000-0.034) ng/mL Coagulation 03/04/24 Range/Units 13:29 PT 10.8 (10.0-12.5) sec APTT 25.9 (22.0-30.0) sec CBC 03/04/24 Range/Units 13:29 WBC 8.3 (3.8-10.6) k/uL RBC 4.59 (3.80-5.40) m/uL Hgb 13.3 (11.4-16.0) gm/dL Hct 41.5 (34.0-46.0) % Plt Count 248 (150-450) k/uL Comprehensive Metabolic Panel 03/04/24 Range/Units 13:29 Sodium 138 (137-145) mmol/L Potassium 3.8 (3.5-5.1) mmol/L Chloride 105 (98-107) mmol/L Carbon Dioxide 24 (22-30) mmol/L BUN 19 H (7-17) mg/dL Creatinine 0.68 (0.52-1.04) mg/dL Glucose 113 H (74-99) mg/dL Calcium 9.2 (8.4-10.2) mg/dL AST 21 (14-36) U/L ALT 20 (4-34) U/L Alkaline Phosphatase 103 (38-126) U/L Total Protein 6.1 L (6.3-8.2) g/dL Albumin 3.6 (3.5-5.0) g/dL Current Medications Generic Name Dose Route Start Last Admin Trade Name Freq PRN Reason Stop Dose Admin Acetaminophen 650 mg 03/04/24 14:56 03/04/24 18:55 Acetaminophen Tab 325 Mg Tab PO 650 mg Q6HR PRN Administration Mild Pain or Fever > 100.5 Hydrocodone Bitart/Acetaminophen 1 each 03/04/24 14:56 03/05/24 01:38 Hydrocodone/Apap 5-325mg 1 Each Tab PO 1 each Q4HR PRN Administration Moderate Pain (Scale 4 to 6) Apixaban 5 mg 03/04/24 21:00 03/05/24 08:50 Apixaban 5 Mg Tab PO 5 mg BID CHIOMA Administration Protocol Atenolol 25 mg 03/04/24 21:00 03/04/24 20:56 Atenolol 25 Mg Tab PO 25 mg BID CHIOMA Administration Atorvastatin Calcium 80 mg 03/04/24 21:00 03/04/24 20:57 Atorvastatin 80 Mg Tab PO 80 mg HS CHIOMA Administration Calcium Carbonate 1 each 03/05/24 09:00 03/05/24 08:50 Calcium Carb-Vit D 500 Mg-5 Mcg Tab PO 1 each DAILY CHIOMA Administration Cholecalciferol 125 mcg 03/05/24 09:00 03/05/24 08:50 Cholecalciferol 125 Mcg (5000 Iu) Tablet PO 125 mcg DAILY CHIOMA Administration Clopidogrel Bisulfate 75 mg 03/05/24 09:00 03/05/24 08:50 Clopidogrel 75 Mg Tab PO 75 mg DAILY CHIOMA Administration Dicyclomine HCl 20 mg 03/04/24 18:00 03/05/24 08:50 Dicyclomine 20 Mg Tab PO 20 mg QID CHIOMA Administration Famotidine 40 mg 03/04/24 14:57 Famotidine 20 Mg Tab PO BID PRN Heartburn Furosemide 80 mg 03/05/24 09:00 Furosemide 80 Mg Tab PO DAILY CHIOMA Levothyroxine Sodium 88 mcg 03/05/24 06:30 03/05/24 05:56 Levothyroxine 88 Mcg Tab PO 88 mcg DAILY@0630 CHIOMA Administration Loratadine 10 mg 03/05/24 09:00 03/05/24 08:50 Loratadine 10 Mg Tab PO 10 mg DAILY CHIOMA Administration Melatonin 5 mg 03/04/24 21:00 03/04/24 21:08 Melatonin 5 Mg Tablet PO 5 mg HS CHIOMA Administration Morphine Sulfate 4 mg 03/04/24 14:56 Morphine Sulfate 4 Mg/Ml Syringe IV Q4HR PRN Severe Pain (Scale 7 to 10) Naloxone HCl 0.2 mg 03/04/24 14:56 Naloxone 0.4 Mg/Ml 1 Ml Vial IV Q2M PRN Opioid Reversal Ondansetron HCl 4 mg 03/04/24 14:56 Ondansetron 4 Mg/2 Ml Vial IVP Q8HR PRN Nausea And Vomiting Pantoprazole Sodium 40 mg 03/04/24 17:30 03/05/24 05:56 Pantoprazole 40 Mg Tablet PO 40 mg AC-BID CHIOMA Administration Spironolactone 50 mg 03/05/24 09:00 Spironolactone 25 Mg Tab PO DAILY CHIOMA Intake and Output 03/04/24 03/05/24 03/05/24 22:59 06:59 14:59 Other: Voiding Method Toilet Weight 85.729 kg 03/04/24 13:29 03/04/24 13:29 Assessment and Plan Assessment: #1 symptoms of chest heaviness, acute coronary event has been ruled out #2 history of CAD with prior single-vessel CABG and subsequent PCI to the LAD in 2022 #3 paroxysmal atrial fibrillation, currently in atrial fibrillation with controlled ventricular response, anticoagulated on Eliquis #4 hyperlipidemia 5 sick sinus syndrome status post PPM Plan: From cardiology's perspective we will add amiodarone 200 mg p.o. twice daily. We will schedule the patient for an echocardiogram and a Lexiscan MPI to be done in the morning. We will continue to follow the patient and provide further recommendations accordingly. SCRAP CUTTER note has been reviewed, I agree with a documented findings and plan of care. Patient was seen and examined.
[2024-03-05] MEDS: AMIODARONE 200 MG TAB PO SCH (13:08)
[2024-03-05] MEDS: MELATONIN 5 MG TABLET PO SCH (20:40)
[2024-03-05] MEDS: NON FORMULARY DRUG (Evolocumab [Repatha Syringe] 140 MG/ML Each) SQ SCH (22:50)
[2024-03-06] MEDS ORDERED: REGADENOSON 0.4 MG/5 ML SYRINGE IV PRN (06:00)
[2024-03-06] MEDS ORDERED: AMINOPHYLLINE 500 MG/20 ML VIAL IV PRN (06:00)
--- NOTE | 2024-03-06 07:19 | P.PN ---
Subjective Progress Note Date: 03/06/24 Principal diagnosis: Chest pain The patient is an 83-year-old female patient with coronary artery disease status post CABG and PCI as well as paroxysmal atrial fibrillation and hypertension and dyslipidemia was admitted to the hospital with chest discomfort and ruled out for acute coronary event. March 06, 2024 The patient was seen and evaluated this morning. She is asymptomatic at this point. She seems to be in normal sinus mechanism at this point. She is on oral anticoagulation. She is scheduled to undergo a stress test and echocardiogram this morning. The examination is remarkable for stable vital signs with regular rhythm and soft systolic murmur and clear breathing sounds bilaterally Assessment Chest discomfort currently under investigation Coronary artery disease status post CABG and PCI Paroxysmal atrial fibrillation Multiple comorbid conditions Plan The patient is scheduled to undergo a stress test and echocardiogram we will follow-up with that Continue the current medical regimen Follow-up with the patient Objective - Vital Signs Vital signs: Vital Signs Temp 98.0 F 03/06/24 00:31 Pulse 65 03/06/24 00:31 Resp 15 03/06/24 00:31 BP 103/54 03/06/24 00:31 Pulse Ox 96 03/06/24 00:31 FiO2 Intake & Output 03/05/24 03/06/24 03/06/24 18:59 06:59 18:59 Other: Voiding Method Toilet # Voids 1 1 - Labs CBC & Chem 7: 03/04/24 13:29 03/04/24 13:29
[2024-03-06 11:03] LABS: Basophils # (A) 0.04 X 10*3/uL (0.00-0.10); Basophils % (A) 0.5 %; Eosinophils # (A) 0.35 X 10*3/uL (0.04-0.35); Eosinophils % (A) 4.1 %; HCT 38.1 % (37.2-46.3); HGB 12.4 g/dL (12.0-15.0); Lymphocytes # (A) 2.96 X 10*3/uL (0.90-5.00); MCH 29.5 pg (27.0-32.0); MCHC 32.5 g/dL (32.0-37.0); MCV 90.7 FL (80.0-97.0); Mean Platelet Volume 10.7 FL (9.5-12.2); Monocytes # (A) 0.72 X 10*3/uL (0.20-1.00); Monocytes % (A) 8.5 %; NRBC Per 100 WBC 0 X 10*3/uL (0.00-0.01); Neutrophils # (A) 4.36 X 10*3/uL (1.80-7.70); Neutrophils % (A) 51.5 %; Platelet Count 241 X 10*3/uL (140-440); RDW 15.4 % (11.5-14.5); WBC 8.46 X 10*3/uL (4.50-10.00)
[2024-03-06 11:27] LABS: ALT 15 U/L (8-44); AST 17 U/L (13-35); Albumin 3.7 g/dL (3.8-4.9); Albumin/Globulin Ratio 1.95 Ratio (1.60-3.17); Alkaline Phosphatase 86 U/L (41-126); BUN/Creat Ratio 22.12 Ratio (12.00-20.00); Blood Urea Nitrogen 17.7 mg/dL (9.0-27.0); Calcium 9.2 mg/dL (8.7-10.3); Carbon Dioxide 29.9 mmol/L (21.6-31.8); Chloride 103 mmol/L (96-109); Globulin 1.9 g/dL (1.6-3.3); Glucose 116 mg/dL (70-110); Potassium 3.9 mmol/L (3.5-5.5); Sodium 141 mmol/L (135-145); Total Bilirubin 0.3 mg/dL (0.3-1.2); Total Protein 5.6 g/dL (6.2-8.2)
--- NOTE | 2024-03-06 11:29 | CA ---
Lexiscan Nuclear Stress Test Report Name: Gila Eduardo Exam Date: 03/06/2024 09:58 Exam Location: [place] Stress Ht (in): 66 Wt (lb): 189 BSA: 1.95 Ordering Phys: Priscilla Vera Referring Phys: PEARL, Technologist: Dany Hays Age: 83 Gender: F : 1940 Procedure CPT: Indications: Reflex order-Stress test ICD-10 Codes: Patient History: Medications: SEE CHART Meds past 24 hrs: Pretest Chest Pain: STRESS TEST Lexiscan Protocol Exercise Duration (min:sec): 02:[address] Depressions (mm): Angina Score: Nails Score: Resting HR (bpm): 62 Peak HR (bpm): 78 Resting BP (mmHg): 140 / 65 Peak BP (mmHg): 127 / 62 MPHR: 139 Target HR: 118 % MPHR: 56 METS: 1.0 Total Dose: Peak Dose: Atropine: Double Product: 9906 BP Response: Stress Termination: PROTOCOL COMPLETE Stress Symptoms: NO SYMPTOMS Stress Summary: ECG ANALYSIS Resting ECG: Stress ECG: CONCLUSIONS Nondiagnostic stress test Dr. Stepan Betancourt MD (Electronically Signed) Final Date: 06 Mar 2024 11:28
[2024-03-06] MEDS ORDERED: CAFFEINE CITRATE 60 MG/3 ML VIAL IV PRN (12:05)
--- NOTE | 2024-03-06 12:14 | NM ---
EXAMINATION TYPE: NM stress lexiscan cardiolite DATE OF EXAM: 03/06/2024 COMPARISON: NONE CLINICAL INDICATION: Female, 83 years old with history of chest heaviness; TECHNIQUE: After the intravenous administration of 10.4 mCi Tc 99m Sestamibi - Cardiolite resting SP ECT images acquired 45 minutes post injection. The patient received 0.4mg Lexiscan, 25.7 mCi Tc 99m Sestamibi - Stress images obtained [address] injection FINDINGS: Review of stress and rest SPECT images demonstrates decreased perfusion along the mid to apical anter oseptal wall only on rest suggesting attenuation artifact. Some diminished perfusion on rest at the m id to basal inferolateral lateral wall as well suggesting attenuation artifact. No discrete reversibi lity is seen. Gated analysis shows normal wall motion with an estimated left ventricular ejection fra ction of 65 %. TID his calculated at 0.85, within normal limits. IMPRESSION: Scattered attenuation artifacts. No scintigraphic evidence for reversible ischemia.
[2024-03-06 15:23] VITALS: RESP 16
--- NOTE | 2024-03-06 18:25 | P.PN ---
Subjective Progress Note Date: 03/06/24 duane redmond is an 83-year-old female patient of Dr. Sutton who presented with complaints of chest pain. Patient reports the pain started yesterday and was described as central chest pressure. Patient has past medical history of atrial fibrillation, breast cancer, chest pain, angina and thyroid disorder. Chest x-ray completed in ER showing no acute cardiopulmonary process. Patient's vital signs temp 97.4, heart rate 56, respiratory rate 15, blood pressure 107/70 with pulse ox 97% on room air. Troponins negative 3. BMP 2460. UA negative. White blood cell 8.3 hemoglobin 13.3. This time patient will be admitted cardiology services consulted. patient denies chest pain or shortness of breath at this time. Patient denies nausea vomiting or diarrhea. Patient denies any urinary burning or frequency on 03/06/2024 patient was seen and examined on the medical floor she is alert and oriented 3 in no apparent distress she denies any complaints at this time, there is no fever or chills no headache or dizziness, no new episodes of chest pain no shortness of breath no cough no nausea or vomiting no abdominal pain no diarrhea and no urinary symptoms, patient was evaluated by cardiology and is scheduled for an echocardiogram and a stress test today, will continue to follow closely. Objective - Vital Signs Vital signs: Vital Signs Temp 98 F 03/06/24 14:33 Pulse 74 03/06/24 14:33 Resp 16 03/06/24 14:33 BP 120/73 03/06/24 14:33 Pulse Ox 96 03/06/24 14:33 FiO2 Intake & Output 03/05/24 03/06/24 03/06/24 18:59 06:59 18:59 Other: Voiding Method Toilet Toilet # Voids 1 1 3 - Labs CBC & Chem 7: 03/06/24 06:41 03/06/24 06:41 Labs: Abnormal Lab Results - Last 24 Hours (Table) 03/06/24 03/06/24 Range/Units 06:41 06:41 RDW 15.4 H (11.5-14.5) % BUN/Creatinine Ratio 22.12 H (12.00-20.00) Ratio Glucose 116 H (70-110) mg/dL Total Protein 5.6 L (6.2-8.2) g/dL Albumin 3.7 L (3.8-4.9) g/dL
[2024-03-07 09:01] VITALS: TEMP 97.5
--- NOTE | 2024-03-07 09:33 | P.PN ---
Subjective Progress Note Date: 03/07/24 Principal diagnosis: Chest pain The patient is an 83-year-old female patient with coronary artery disease status post CABG and PCI as well as paroxysmal atrial fibrillation and hypertension and dyslipidemia was admitted to the hospital with chest discomfort and ruled out for acute coronary event. March 06, 2024 The patient was seen and evaluated this morning. She is asymptomatic at this point. She seems to be in normal sinus mechanism at this point. She is on oral anticoagulation. She is scheduled to undergo a stress test and echocardiogram this morning. The examination is remarkable for stable vital signs with regular rhythm and soft systolic murmur and clear breathing sounds bilaterally March 07, 2024 The patient was seen and evaluated this morning which she is asymptomatic and she is hemodynamically stable. The examination is remarkable for soft systolic murmur at the right and left upper sternal border. She underwent myocardial perfusion imaging stress test came in to be unremarkable and echo still pending. Will follow-up with the results and if the echo is unremarkable the patient potentially can be discharged home Assessment Chest discomfort currently under investigation Coronary artery disease status post CABG and PCI Paroxysmal atrial fibrillation Multiple comorbid conditions Plan The stress test came in to be unremarkable Follow-up on the echo and possible discharge later on today Objective - Vital Signs Vital signs: Vital Signs Temp 97.5 F L 03/07/24 07:00 Pulse 56 L 03/07/24 07:00 Resp 16 03/07/24 07:00 BP 111/62 03/07/24 07:00 Pulse Ox 95 03/07/24 07:00 FiO2 Intake & Output 03/06/24 03/07/24 03/07/24 18:59 06:59 18:59 Intake Total 118 Balance 118 Intake: Oral 118 Other: Voiding Method Toilet Toilet # Voids 3 3 - Labs CBC & Chem 7: 03/06/24 06:41 03/06/24 06:41 Labs: Abnormal Lab Results - Last 24 Hours (Table) 03/06/24 03/06/24 Range/Units 06:41 06:41 RDW 15.4 H (11.5-14.5) % BUN/Creatinine Ratio 22.12 H (12.00-20.00) Ratio Glucose 116 H (70-110) mg/dL Total Protein 5.6 L (6.2-8.2) g/dL Albumin 3.7 L (3.8-4.9) g/dL
--- NOTE | 2024-03-07 09:54 | CA ---
Transthoracic Echo Report Name: Gila Eduardo Age: 83 Gender: F : 1940 Exam Date: 03/06/2024 15:42 Exam Location: [place] Echo Ht (in): 66 Wt (lb): 189 Ordering Physician: Priscilla Vera Attending/Referring Phys: [id number], Jody Donor Specialist Joanie Fox RDCS Procedure CPT: Indications: Chest heaviness Cardiac Hx: Technical Quality: Technically difficult study Contrast 1: Definity Total Dose (mL): 2 Contrast 2: Total Dose (mL): MEASUREMENTS (Male / Female) Normal Values 2D ECHO LV Diastolic Diameter PLAX 4.8 cm 4.2 - 5.9 / 3.9 - 5.3 cm LV Systolic Diameter PLAX 2.9 cm IVS Diastolic Thickness 1.1 cm 0.6 - 1.0 / 0.6 - 0.9 cm LVPW Diastolic Thickness 0.9 cm 0.6 - 1.0 / 0.6 - 0.9 cm LV Relative Wall Thickness 0.4 RV Internal Dim ED PLAX 3.2 cm LVOT Diameter 1.9 cm Aortic Root Diameter 3.5 cm LV Diastolic Volume MOD BP 77.9 cm??? 67 - 155 / 56 - 104 cm??? LV Systolic Volume MOD BP 33.1 cm??? 22 - 58 / 19 - 49 cm??? LV Ejection Fraction MOD BP 57.5 % >= 55 % LV Cardiac Index MOD BP 1416.6 cm???/min???m??? LV Diastolic Volume MOD 4C 84.1 cm??? LV Systolic Volume MOD 4C 40.9 cm??? LV Ejection Fraction MOD 4C 51.4 % LV Cardiac Index MOD 4C 1366.1 cm???/min???m??? LV Diastolic Length 4C 7.9 cm LV Systolic Length 4C 6.7 cm LV Diastolic Volume MOD 2C 66.7 cm??? LV Systolic Volume MOD 2C 23.5 cm??? LV Ejection Fraction MOD 2C 64.8 % LV Cardiac Index MOD 2C 1365.7 cm???/min???m??? LV Diastolic Length 2C 7.3 cm LV Systolic Length 2C 5.8 cm Ascending Aorta Diameter 3.5 cm DOPPLER AV Peak Velocity 110.8 cm/s AV Peak Gradient 4.9 mmHg AV Mean Velocity 71.0 cm/s AV Mean Gradient 2.3 mmHg AV Velocity Time Integral 23.9 cm LVOT Peak Velocity 101.2 cm/s LVOT Peak Gradient 4.1 mmHg LVOT Velocity Time Integral 22.2 cm LVOT Stroke Volume 66.1 cm??? LVOT Stroke Volume Index 33.8 ml/m??? LVOT Cardiac Index 2089.1 cm???/min???m??? AV Area Cont Eq vti 2.8 cm??? AV Area Cont Eq pk 2.7 cm??? Mitral E Point Velocity 67.4 cm/s Mitral A Point Velocity 78.7 cm/s Mitral E to A Ratio 0.9 MV Deceleration Time 241.3 ms MV E' Velocity 8.5 cm/s Mitral E to MV E' Ratio 7.9 TR Peak Velocity 242.3 cm/s TR Peak Gradient 23.5 mmHg Right Atrial Pressure 5.0 mmHg Pulmonary Artery Systolic Pressu 28.5 mmHg Right Ventricular Systolic Press 28.5 mmHg PV Peak Velocity 79.2 cm/s PV Peak Gradient 2.5 mmHg FINDINGS Left Ventricle Left ventricular ejection fraction is estimated at 50-55 %. Mildly increased septal wall thickness. Left ventricular cavity size normal. No obvious regional wall motion abnormalities. Right Ventricle Normal right ventricular size and function. Right Atrium Right atrium not well visualized. Left Atrium Normal left atrial size. Mitral Valve Structurally normal mitral valve. No evidence for mitral valve prolapse. No mitral stenosis. Trace mitral regurgitation. Aortic Valve Trileaflet aortic valve. No aortic valve stenosis or regurgitation. Tricuspid Valve Structurally normal tricuspid valve. No tricuspid stenosis. Mild to moderate tricuspid regurgitation. Pulmonic Valve Pulmonic valve not well visualized. No pulmonic stenosis. No pulmonic regurgitation. Pericardium No pericardial effusion. Aorta Normal size aortic root and proximal ascending aorta. CONCLUSIONS Normal LV systolic function Previewed by: Dr. Stepan Betancourt MD (Electronically Signed) Final Date: 07 Mar 2024 09:54
--- NOTE | 2024-03-07 10:39 | P.DS ---
Providers Date of admission: 03/04/24 14:49 Expected date of discharge: 03/07/24 Attending physician: Olimpia Arce Consults: 03/04/24 14:56 Consult Physician Urgent Consulting Provider: Mookie Lcok Consult Reason/Comments: chest pain Do you want consulting provider notified?: Yes Primary care physician: Yaritza Sutton Hospital Course: discharge diagnosis 1. Chest pain. Troponins negative 3 2. History of coronary artery disease with previous history of coronary artery bypass Surgery 3. History of atrial fibrillation 4. History of essential hypertension 5. History of cardiac arrhythmia with history of permanent pacemaker placement 6. History of breast cancer 7. History of hyperlipidemia 8. History of irritable bowel disease 9. History of diverticulosis 7. History of osteoarthritis Hospital course duane redmond is an 83-year-old female patient of Dr. Sutton who presented with complaints of chest pain. Patient reports the pain started yesterday and was described as central chest pressure. Patient has past medical history of atrial fibrillation, breast cancer, chest pain, angina and thyroid disorder. Chest x-ray completed in ER showing no acute cardiopulmonary process. Patient's vital signs temp 97.4, heart rate 56, respiratory rate 15, blood pressure 107/70 with pulse ox 97% on room air. Troponins negative 3. BMP 2460. UA negative. White blood cell 8.3 hemoglobin 13.3. This time patient will be admitted cardiology services consulted. patient denies chest pain or shortness of breath at this time. Patient denies nausea vomiting or diarrhea. Patient denies any urinary burning or frequency on 03/06/2024 patient was seen and examined on the medical floor she is alert and oriented 3 in no apparent distress she denies any complaints at this time, there is no fever or chills no headache or dizziness, no new episodes of chest pain no shortness of breath no cough no nausea or vomiting no abdominal pain no diarrhea and no urinary symptoms, patient was evaluated by cardiology and is scheduled for an echocardiogram and a stress test today, will continue to follow closely. On 03/07/2024 patient is alert and oriented 3. Patient has been cleared for discharge from cardiology standpoint.patient will follow up with cardiology services outpatient for further management. Patient denies chest pain or shortness breath. Patient denies nausea vomiting or diarrhea. Patient denies any urinary burning or frequency Patient Condition at Discharge: Stable Plan - Discharge Summary New Discharge Prescriptions: New Amiodarone [Cordarone] 200 mg PO BID 30 Days #60 tab Continue Nitroglycerin Sl Tabs [Nitrostat] 0.4 mg SL Q5M PRN PRN Reason: Chest Pain Spironolactone [Aldactone] 50 mg PO DAILY Atorvastatin [Lipitor] 80 mg PO HS Omeprazole 40 mg PO BID atenoloL [Tenormin] 25 mg PO BID Loratadine [Claritin] 10 mg PO DAILY Dicyclomine [Bentyl] 20 mg PO QID Melatonin 5 mg PO HS Cholecalciferol (Vitamin D3) [Vitamin D3 (125 MCG = 5,000 IU)] 125 mcg PO DAILY Calcium Citrate/Vitamin D3 [Citracal + D Maximum Caplet] 1 tab PO DAILY Famotidine 40 mg PO BID PRN PRN Reason: Heartburn Clopidogrel [Plavix] 75 mg PO DAILY 30 Days #30 tab Furosemide [Lasix] 80 mg PO DAILY Levothyroxine Sodium [Synthroid] 88 mcg PO DAILY Apixaban [Eliquis] 5 mg PO BID #60 tab Evolocumab [Repatha Syringe] 140 mg SQ Q14D Discharge Medication List Nitroglycerin Sl Tabs [Nitrostat] 0.4 mg SL Q5M PRN 07/10/15 [History] Spironolactone [Aldactone] 50 mg PO DAILY 07/10/15 [History] Atorvastatin [Lipitor] 80 mg PO HS 08/11/16 [History] Omeprazole 40 mg PO BID 08/11/16 [History] atenoloL [Tenormin] 25 mg PO BID 08/11/16 [History] Loratadine [Claritin] 10 mg PO DAILY 06/11/20 [History] Dicyclomine [Bentyl] 20 mg PO QID 09/23/20 [History] Furosemide [Lasix] 80 mg PO DAILY 03/10/21 [History] Melatonin 5 mg PO HS 04/29/21 [History] Levothyroxine Sodium [Synthroid] 88 mcg PO DAILY 09/03/21 [History] Calcium Citrate/Vitamin D3 [Citracal + D Maximum Caplet] 1 tab PO DAILY 05/05/23 [History] Cholecalciferol (Vitamin D3) [Vitamin D3 (125 MCG = 5,000 IU)] 125 mcg PO DAILY 05/05/23 [History] Famotidine 40 mg PO BID PRN 05/05/23 [History] Apixaban [Eliquis] 5 mg PO BID #60 tab 05/06/23 [Rx] Clopidogrel [Plavix] 75 mg PO DAILY 30 Days #30 tab 05/09/23 [Rx] Evolocumab [Repatha Syringe] 140 mg SQ Q14D 03/04/24 [History] Amiodarone [Cordarone] 200 mg PO BID 30 Days #60 tab 03/07/24 [Rx] Follow up Appointment(s)/Referral(s): Yaritza Sutton MD [Primary Care Provider] - 1-2 days Griffin Santo MD [STAFF PHYSICIAN] - 1 Week Discharge Disposition: HOME SELF-CARE
[2024-03-07 14:27] VITALS: BP 120/66; PULSE 67
== END 2024-03-07 13:50 | disposition home or self-care (01) ==
LOC: EC 11:55 → 6NMEDSUR 14:49
PROVIDERS: ADMIT Internal Medicine; ATTEND Internal Medicine
DX: R07.89 Other chest pain (principal); I48.0 Paroxysmal atrial fibrillation; I25.10 Atherosclerotic heart disease of native coronary artery without angina pectoris; I49.5 Sick sinus syndrome; E78.5 Hyperlipidemia, unspecified; I10 Essential (primary) hypertension; K58.9 Irritable bowel syndrome, unspecified; K57.90 Diverticulosis of intestine, part unspecified, without perforation or abscess without bleeding; M19.90 Unspecified osteoarthritis, unspecified site; Z85.3 Personal history of malignant neoplasm of breast; Z95.0 Presence of cardiac pacemaker; Z95.5 Presence of coronary angioplasty implant and graft; Z79.899 Other long term (current) drug therapy; Z79.890 Hormone replacement therapy; Z79.01 Long term (current) use of anticoagulants; Z79.02 Long term (current) use of antithrombotics/antiplatelets; Z88.2 Allergy status to sulfonamides
CPT/HCPCS: 99285; 36415; 93005; 93017; 83880; 80053 ×2; 83690; 83735; 84484; 85025 ×2; 85610; 85730; 81003; 71046; 78452; G0378 ×4; C8929; A9500; Q9957; J2785; 93306

== ENCOUNTER → 2024-03-09 | Outpatient (CLI) | payer MEDICARE ==
--- NOTE | 2024-03-12 15:05 | MM ---
Reason for Exam: Screening (asymptomatic). Last screening mammogram was performed 12 month(s) ago. Patient History: Menarche at age 12. First Full-Term at age 30. Left ovary removed at age 52. Right ovary removed at age 37. Hysterectomy at age 52. Postmenopausal. Patient has history of breast feeding. Breast cancer, right, age 60. Previous chest radiation therapy. Estrogen for 2 years from age 57 until age 59. Progesterone for 2 years from age 57 until age 59. 1999, Lumpectomy on the Right side. 1999, Chemotherapy. 1999, Radiation Therapy on the right side. Prior Study Comparison: 03/04/2021 Bilateral Diagnostic Mammogram, [facility]. 03/06/2022 Bilateral Diagnostic Mammogram, [facility]. 03/08/2023 Bilateral MG 3D diag mammo w/cad EDVIN, [facility]. Tissue Density: There are scattered areas of fibroglandular density. Findings: Analyzed By CAD. Postsurgical and posttreatment changes on the right. Generator device overlying the left pectoralis. Benign bilateral calcifications are redemonstrated. There is no suspicious group of microcalcifications or new suspicious mass in either breast. Overall Assessment: Benign, BI-RAD 2 Management: Screening Mammogram of both breasts in 1 year. . Patient should continue monthly self-breast exams. A clinical breast exam by your physician is recommended on an annual basis. This exam should not preclude additional follow-up of suspicious palpable abnormalities. Electronically signed and approved by: Judy Hawley M.D. Radiologist
== END | disposition home or self-care (01) ==
LOC: RADMAMWWP 10:43
PROVIDERS: ATTEND Family Medicine
DX: Z12.31 Encounter for screening mammogram for malignant neoplasm of breast (principal); Z85.3 Personal history of malignant neoplasm of breast; Z78.0 Asymptomatic menopausal state
CPT/HCPCS: 77063; 77067

== ENCOUNTER → 2024-05-12 | Outpatient (CLI) | payer MEDICARE ==
--- NOTE | 2024-05-13 13:29 | BD ---
EXAMINATION TYPE: Axial Bone Density DATE OF EXAM: 05/12/2024 CLINICAL HISTORY: 84 years old Female. ICD-10 CODE: Z78.0 AYSMPTOMATIC MENOPAUSAL STATE Height: 63.5" Weight: 182lbs FRAX RISK QUESTIONS: Alcohol (3 or more units per day): No Family History (Parent hip fracture): No Glucocorticoids (More than 3mos): No (Ex: prednisone, prednisolone, methylprednisolone, dexamethasone, and hydrocortisone). History of Fracture in Adulthood: No Secondary Osteoporosis: 1. Type 1 Diabetes: No 2. Hyperthyroidism: No 3. Menopause before 45: No 4. Malnutrition: No 5. Chronic liver disease: No Rheumatoid Arthritis: No Current Tobacco Use: No RISK FACTORS HISTORY OF: Hip Fracture (Right/Left): Yes When: Bilateral hip replacements, over 5 years ago Spine Fracture: No History of Wrist Fracture: No Surgery to Spine/Hip(right/left)/Wrist (right/left): No MEDICATIONS: Thyroid Medications: Yes Which medication: Levothyroxine How Lon years Osteoporosis Medications: No EXAM MEASUREMENTS: Bone mineral densitometry was performed using the [employer]. Bone mineral density as measured about the Lumbar spine is: ----- L1-L4(G/cm2): 1.070 T Score Values are as follows: ----- L1: -2.0 ----- L2: -2.7 ----- L3: -0.7 ----- L4: 1.3 ----- L1-L4: -0.9 Z Score Values are as follows: ----- L1: -0.7 ----- L2: -1.4 ----- L3: 0.6 ----- L4: 2.6 ----- L1-L4: 0.4 Baseline @MPH Bone mineral density about the L Wrist (g/cm2): 0.547 T Score values are as follows: -----Dist. R+U: -1.1 -----Prox. R+U: -1.8 -----Radius total: -2.1 Z Score values are as follows: -----Dist. R+U: 1.8 -----Prox. R+U: 1.1 -----Radius total: 0.8 Baseline @MPH FRAX%s: N/A for this patient. IMPRESSION: Osteopenia (T Score between -2.5 and -1). There is slightly increased risk of fracture and the patient may be considered for treatment. Re-Screen 2-5 years. NOTE: T-SCORE=SD OF THE YOUNG ADULT MEAN.
== END | disposition home or self-care (01) ==
LOC: RADBDWWP 12:44
PROVIDERS: ATTEND Family Medicine
DX: M85.821 Other specified disorders of bone density and structure, right upper arm (principal); Z78.0 Asymptomatic menopausal state
CPT/HCPCS: 77080

== ENCOUNTER → 2024-05-31 | Outpatient (CLI) | payer MEDICARE ==
--- NOTE | 2024-05-31 16:19 | CT ---
EXAMINATION TYPE: CT lumbar spine wo con DATE OF EXAM: 05/31/2024 COMPARISON: None HISTORY: 84-year-old female M47.816, M48.062, LOW BACK PAIN TECHNIQUE: Contiguous axial scanning of the lumbar spine without IV contrast. Coronal and sagittal re constructions performed. CT DLP: 637.1 mGycm Automated exposure control for dose reduction was used. FINDINGS: Levoconvex scoliosis. Moderate stool burden. Tiny linear calculi/gravel in the gallbladder. Moderate arthroscopic calcifications infrarenal abdominal aorta and common iliac arteries. Partially visualized sigmoid diverticulosis. Osteopenia. Severe dissection of the degenerative change particularly L3-L4 and L4-L5 desiccated, narrowed disks and endplate sclerosis. Vertebral body heights are preserved. Trace grade 1 anterolisthesis L3-L4. Remaining alignment is kadie ntained. Hypertrophic facet arthropathy throughout the lumbar spine greatest towards the right in the mid lumb ar spine. Degenerative changes cause mild circumferential attenuation of the thecal sac at L4-L5. No large foca l disc herniation or significant spinal canal stenosis appreciated by CT. On the right, changes result in moderate neuroforaminal stenosis and L3-L4 and L4-L5. Mild L5-S1. On the left, changes result in moderate neural foraminal stenosis at L4-L5 and moderate to severe at L5-S1. IMPRESSION: 1. LEVOCONVEX SCOLIOSIS. 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 2. MILD OVERALL NARROWING OF THE SPINAL CANAL AT L4-L5. NO SIGNIFICANT SPINAL CANAL STENOSIS APPRECIA MALIKA BY CT. 3. VARIABLE NEURAL FORAMINAL STENOSES OUTLINED ABOVE, MODERATE TO SEVERE ON THE LEFT AT L5-S1 AND MODERATE ON BOTH SIDES AT L4-L5 WELL ON THE RIGHT AT L3-L4.
== END | disposition home or self-care (01) ==
LOC: RADCTMAIN 12:48
PROVIDERS: ATTEND Physical Medicine & Rehabilitation
DX: M47.816 Spondylosis without myelopathy or radiculopathy, lumbar region (principal); M48.062 Spinal stenosis, lumbar region with neurogenic claudication; M43.16 Spondylolisthesis, lumbar region; M51.36 Other intervertebral disc degeneration, lumbar region
CPT/HCPCS: 72131